=== PATIENT | female | born 1960 | race Caucasian/White ===

== ENCOUNTER 2016-08-22 11:39 | Emergency (ER) | payer BC ==
[2016-08-22] MEDS ORDERED: Sodium Chloride 0.9% 1,000 ML IV ONE (12:14)
[2016-08-22] MEDS ORDERED: Alum Hydrox/Mag Hydrox/Simeth 15 ML, Metoclopramide 5 MG, Lidocaine 2% 5 ML PO ONE ×3 (12:14)
[2016-08-22] MEDS ORDERED: Ketorolac 30 MG/ML SDV IVPUSH ONE (12:14)
--- NOTE | 2016-08-22 12:14 | EDM.PDOC ---
ED HPI GI/ABDOMINAL - General Chief Complaint: Abdominal Pain Stated Complaint: ABDOMINAL PAIN Time Seen by Provider: 08/22/16 11:55 Source of Information: Reports: Patient History Limitations: Reports: No limitations - History of Present Illness INITIAL COMMENTS - FREE TEXT/NARRATIVE: History of present illness: [55-year-old female presenting with complaints of diffuse abdominal and back pain. Patient indicates that she is having pain and pressure mostly in the upper epigastric region, as well as chronic flank pain indicating she knows she has a cyst on her kidney.] Review of systems: As per history of present illness and below otherwise all systems reviewed and negative. Past medical history: As per history of present illness and as reviewed below otherwise noncontributory. Surgical history: As per history of present illness and as reviewed below otherwise noncontributory. Social history: No reported history of drug or alcohol abuse. Family history: As per history of present illness and as reviewed below otherwise noncontributory. Physical exam: HEENT: Atraumatic, normocephalic, pupils reactive, negative for conjunctival pallor or scleral icterus, mucous membranes moist, throat clear, neck supple, nontender, trachea midline. Lungs: Clear to auscultation, breath sounds equal bilaterally, chest nontender. Heart: S1S2, regular, negative for clicks, rubs, or JVD. Abdomen: Soft, nondistended, small amount of epigastric tenderness noted on deep palpation. Negative for masses or hepatosplenomegaly. Negative for costovertebral tenderness. Pelvis: Stable nontender. Genitourinary: Deferred. Rectal: Deferred. Extremities: Atraumatic, negative for cords or calf pain. Neurovascular unremarkable. Neuro: Awake, alert, oriented. Cranial nerves II through XII unremarkable. Cerebellum unremarkable. Motor and sensory unremarkable throughout. Exam nonfocal. Diagnostics: [CBC, CMP] Therapeutics: [Excellent] Impression: [Abdominal pain, diverticulosis,] Plan: [follow up with MATH AND PHYSICS INSTRUCTOR] Definitive disposition and diagnosis as appropriate pending reevaluation and review of above. - Related Data Allergies/ADRs: Allergies Allergy/AdvReac Type Severity Reaction Status Date / Time acetaminophen [From Percocet] Allergy Mild Hives Verified 08/22/16 11:50 oxycodone HCl [From Percocet] Allergy Airway Verified 08/22/16 11:50 Tightness sulfur dioxide Allergy Rash Verified 08/22/16 11:50 Home Meds: Home Meds Budesonide/Formoterol Fumarate [Symbicort 80-4.5 Mcg Inhaler] 1 dose INH ASDIRECTED 06/11/14 [History] Albuterol [Ventolin HFA] 2 puff INH QID PRN 01/17/16 [History] Zolpidem Tartrate [Ambien] 5 mg PO DAILY 03/20/16 [History] Past Medical History - Past Health History Medical/Surgical History: Denies Medical/Surgical History HEENT History: Reports: None Cardiovascular History: Reports: None Respiratory History: Reports: COPD Gastrointestinal History: Reports: None Genitourinary History: Reports: Other (see below) Other Genitourinary History: recently told she has a cyst on her right kidney ( 3 cm). 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 Musculoskeletal History: Reports: Back pain, chronic, Fracture, Neck pain, chronic, Other (see below) Other Musculoskeletal History: right hip pain, hx of fx right wrist Neurological History: Reports: Other (see below) Other Neuro History: has ruptured disc in back Psychiatric History: Reports: None Endocrine/Metabolic History: Reports: Obesity/BMI 30+ Hematologic History: Reports: None Immunologic History: Reports: None Oncologic (Cancer) History: Reports: None Dermatologic History: Reports: None - Infectious Disease History Infectious Disease History: Reports: Chicken pox - Past Surgical History Head Surgeries/Procedures: Reports: None HEENT Surgical History: Reports: None Cardiovascular Surgical History: Reports: None Respiratory Surgical History: Reports: None GI Surgical History: Reports: None Female Surgical History: Reports: Tubal ligation Endocrine Surgical History: Reports: None Neurological Surgical History: Reports: None Musculoskeletal Surgical History: Reports: None Oncologic Surgical History: Reports: None Social & Family History - Family History Family Medical History: Noncontributory Cardiac: Reports: CAD Neurological: Reports: CVA - Tobacco Use Smoking Status *Q: Current Every Day Smoker Years of Tobacco use: 30 Packs/Tins Daily: 0.2 - Caffeine Use Caffeine Use: Reports: None - Alcohol Use Days Per Week of Alcohol Use: 0 Number of Drinks Per Day: 0 Total Drinks Per Week: 0 - Recreational Drug Use Recreational Drug Use: No Drug Use in Last 12 Months: No Recreational Drug Type: Reports: Marijuana/Hashish, Methamphetamine ED ROS GENERAL - Review of Systems Review Of Systems: See Below (See history of present illness) ED EXAM, GI/ABD - Physical Exam Exam: See Below (History of present illness) Course - Vital Signs Last Recorded V/S: Last Vital Signs Temp Pulse 69 08/22/16 13:26 Resp 16 08/22/16 13:26 BP 124/68 08/22/16 13:26 Pulse Ox 93 L 08/22/16 13:26 - Orders/Labs/Meds Orders: Active Orders 24 hr Category Date Time Status EKG Documentation Completion [RC] STAT Care 08/22/16 14:45 Active Labs: Laboratory Tests 08/22/16 08/22/16 08/22/16 Range/Units 12:10 12:10 14:55 WBC 9.28 (4.0-11.0) K/uL RBC 4.80 (4.30-5.90) M/uL Hgb 14.6 (12.0-16.0) g/dL Hct 45.6 (36.0-46.0) % MCV 95.0 (80.0-98.0) fL MCH 30.4 (27.0-32.0) pg MCHC 32.0 (31.0-37.0) g/dL RDW Std Deviation 48.1 (28.0-62.0) fl RDW Coeff of Murtaza 14 (11.0-15.0) % Plt Count 184 (150-400) K/uL MPV 10.00 (7.40-12.00) fL Neut % (Auto) 63.7 (48.0-80.0) % Lymph % (Auto) 23.3 (16.0-40.0) % Ogle % (Auto) 11.6 (0.0-15.0) % Eos % (Auto) 1.0 (0.0-7.0) % Baso % (Auto) 0.4 (0.0-1.5) % Neut # (Auto) 5.9 H (1.4-5.7) K/uL Lymph # (Auto) 2.2 (0.6-2.4) K/uL Ogle # (Auto) 1.1 H (0.0-0.8) K/uL Eos # (Auto) 0.1 (0.0-0.7) K/uL Baso # (Auto) 0.0 (0.0-0.1) K/uL Nucleated RBC % 0.0 /100WBC Nucleated RBCs # 0 K/uL Sodium 140 (136-146) mmol/L Potassium 4.5 (3.5-5.1) mmol/L Chloride 105 (98-110) mmol/L Carbon Dioxide 25 (21-31) mmol/L BUN 11 (6.0-23.0) mg/dL Creatinine 0.9 (0.6-1.5) mg/dL Est Cr Clr Drug Dosing 54.55 mL/min Estimated GFR (MDRD) > 60.0 ml/min Glucose 117 H (60-110) mg/dL Calcium 9.6 (8.8-10.8) mg/dL Total Bilirubin 0.5 (0.1-1.5) mg/dL AST 17 (5-40) IU/L ALT 24 (8-54) IU/L Alkaline Phosphatase 66 (40-150) Troponin I < 0.10 (0.0-0.29) NG/ML Total Protein 6.7 (6.0-8.0) g/dL Albumin 4.0 (3.5-5.0) g/dL Globulin 2.7 (2.0-3.5) g/dL Albumin/Globulin Ratio 1.5 (1.3-2.8) Amylase 39 (10-90) U/L Lipase 11 (7-80) U/L Meds: Medications Discontinued Medications Generic Name Dose Route Start Last Admin Trade Name Freq PRN Reason Stop Dose Admin Hydrocodone Bitart/Acetaminophen 1 tab 08/22/16 13:50 08/22/16 14:09 [place] 325-10 Mg PO 08/22/16 13:51 1 tab ONETIME ONE Administration Al Hydroxide/Mg Hydroxide 15 0 ml 08/22/16 12:14 08/22/16 12:38 ml/ Metoclopramide HCl 5 mg/ PO 08/22/16 12:15 1 each Lidocaine HCl 5 ml ONETIME ONE Administration Sodium Chloride 1,000 mls @ 999 mls/hr 08/22/16 12:14 08/22/16 12:39 Normal Saline IV 08/22/16 13:14 999 mls/hr STAT ONE Administration Iopamidol 100 ml 08/22/16 15:04 08/22/16 15:43 Isovue-370 (76%) IVPUSH 08/22/16 15:05 100 ml ONETIME STA Administration Ketorolac Tromethamine 30 mg 08/22/16 12:14 08/22/16 12:38 Toradol IVPUSH 08/22/16 12:15 30 mg ONETIME ONE Administration Pantoprazole Sodium 40 mg 08/22/16 14:59 08/22/16 16:01 Protonix Iv IVPUSH 08/22/16 15:00 40 mg .BOLUS ONE Administration Ranitidine HCl 300 mg 08/22/16 14:58 08/22/16 16:18 Zantac PO 08/22/16 14:59 300 mg ONETIME ONE Administration Departure - Departure Time of Disposition: 17:51 Disposition: Home, Self-Care 01 Condition: good Clinical Impression: Abdominal pain Qualifiers: Abdominal location: epigastric Qualified Code(s): R10.13 - Epigastric pain Diverticulosis Qualifiers: Diverticulosis site: unspecified location Instructions: Abdominal Pain, Adult, [id number] Forms: ED Department Discharge - My Orders Last 24 Hours: My Active Orders 08/22/16 14:45 EKG Documentation Completion [RC] STAT - Assessment/Plan Last 24 Hours: My Active Orders 08/22/16 14:45 EKG Documentation Completion [RC] STAT
[2016-08-22 12:49] LABS: CHLORIDE,CL 105 mmol/L (98-110); SODIUM,NA 140 mmol/L (136-146)
[2016-08-22] MEDS ORDERED: Acetaminophen/HYDROcodone 325-10 MG Tab PO ONE (13:50)
[2016-08-22] MEDS ORDERED: Ranitidine 15 MG/ML Syrup 10 ML UD Cup PO ONE (14:58)
[2016-08-22] MEDS ORDERED: Pantoprazole 40 MG Vial IVPUSH ONE (14:59)
[2016-08-22] MEDS ORDERED: Iopamidol 755 Mg/ML 100 ML Bottle IVPUSH STA (15:04)
--- NOTE | 2016-08-22 16:17 | CT ---
CT of the abdomen and pelvis with contrast. HISTORY: Pain TECHNIQUE: Axial CT images were obtained of the abdomen and pelvis following administration of 100 m L of Isovue-370 in the right antecubital fossa without complication. Coronal and sagittal reconstruc tions obtained. FINDINGS: The lung bases are clear, no pleural effusion. The liver, spleen, adrenal glands, and pancreas appear normal. The gallbladder appears normal. There is no bulky retroperitoneal lymphadenopathy or abdominal ascites. The kidneys enhance and function symmetrically without evidence of obstructive uropathy. There is a cyst within the midpole of the right kidney. The large and small bowel appear normal in caliber without evidence of obstruction. Sigmoid divertic ulosis is noted without evidence of diverticulitis. The appendix is normal. The urinary bladder appe ars normal. No pelvic lymphadenopathy or free pelvic fluid. No free air is noted. No suspicious osseous abnormalities demonstrated. IMPRESSION: 1. No acute findings demonstrated within the abdomen or pelvis. 2. Sigmoid diverticulosis without evidence of diverticulitis.
[2016-08-22 18:36] VITALS: BP 136/79
--- NOTE | 2016-08-23 10:35 | CR ---
EXAM DATE: 08/22/16 PATIENT'S AGE: 55 Patient: MIGUELINA DOLL Facility: [place], [place] Site . Site : 1960 Study: XRay Chest [id number]/4/2017 5:17:33 PM Ordering Physician: Doctor Chamberlain Final Report: INDICATION: Chest pain. Cough. TECHNIQUE: Chest 2 views. COMPARISON: 02/13/2016 FINDINGS: Cardiovascular and mediastinum: Heart size and vasculature are normal in caliber and appearance. Mediastinum is within normal limits. Lungs and pleural spaces: Hyperinflation again noted. No consolidation or pleural effusions. Bones and soft tissues: No significant change. IMPRESSION: No sign of acute disease. Hyperinflation compatible with COPD. Dictated by Andrea Solomon MD @ 08/22/2016 5:39:25 PM Dictated by: Andrea Solomon MD @ 08/22/2016 17:39:29 (Electronic Signature) Report Signed by Proxy and Original Signed Document filed in the Medical Record. MTDD
== END 2016-08-22 18:33 | disposition home or self-care (01) ==
LOC: MW.ED 11:39
DX: R10.13 Epigastric pain (principal); J44.9 Chronic obstructive pulmonary disease, unspecified; F17.210 Nicotine dependence, cigarettes, uncomplicated; E66.9 Obesity, unspecified; Z68.28 Body mass index [BMI] 28.0-28.9, adult; Z79.899 Other long term (current) drug therapy; Z88.5 Allergy status to narcotic agent; Z88.8 Allergy status to other drugs, medicaments and biological substances; Z98.51 Tubal ligation status
CPT/HCPCS: 36415; 71020; 74177; 80053; 81001; 82150; 83690; 84484; 85025; 93005; 96361; 96374; 99285; A9270; C9113; J1885; J7040; Q9967; 99284

== ENCOUNTER 2018-07-31 12:03 | Emergency (ER) | payer SELFPAY ==
--- NOTE | 2018-07-31 12:14 | EDM.PDOC ---
ED HPI GENERAL MEDICAL PROBLEM - General Chief Complaint: Upper Extremity Injury/Pain Stated Complaint: RIGHT SHOULDER PAIN Time Seen by Provider: 07/31/18 12:14 Source of Information: Reports: Patient History Limitations: Reports: No Limitations - History of Present Illness INITIAL COMMENTS - FREE TEXT/NARRATIVE: HISTORY AND PHYSICAL: History of present illness: Patient is a 57-year-old female here with complaint of right shoulder and wrist pain. She states she fell on this ice this morning while take trash out at work. She landed on her right side. Denies head injury or LOC. She does not pain of her right hip (points to her right low back). She did walk in to the ED unassisted with a normal gait. Review of systems: As per history of present illness and below otherwise all systems reviewed and negative. Past medical history: As per history of present illness and as reviewed below otherwise noncontributory. Surgical history: As per history of present illness and as reviewed below otherwise noncontributory. Social history: No reported history of drug or alcohol abuse. Family history: As per history of present illness and as reviewed below otherwise noncontributory. Physical exam: General: Patient sitting comfortably in no acute distress and nontoxic appearing HEENT: Atraumatic, normocephalic, pupils reactive, negative for conjunctival pallor or scleral icterus, mucous membranes moist, throat clear, neck supple, nontender, trachea midline. No meningeal signs. Lungs: Clear to auscultation, breath sounds equal bilaterally, chest nontender. Heart: S1S2, regular, negative for clicks, rubs, or overt murmur. Abdomen: Soft, nondistended, nontender. Negative for masses or hepatosplenomegaly. Negative for costovertebral tenderness. No rigidity, rebound , guarding. Pelvis: Stable nontender. Genitourinary: Deferred. Rectal: Deferred. Spine: No vertebral tenderness or step offs to palpation. No cervical paraspinal tenderness noted. No SI joint tenderness. Pain to palpation of right lumber paraspinals. Extremities: Pain to palpation of distal right radius and right shoulder AC joint. Full ROM of shoulder with pain noted with adduction. Full ROM of wrist and hand with pain noted of thumb adduction. There is no tenderness to palpation of the lateral right hip and she has full ROM. CMS intact distally. Atraumatic, negative for cords or calf pain. Neurovascular unremarkable. Neuro: Awake, alert, oriented. Cranial nerves II through XII unremarkable. Cerebellum unremarkable. Motor and sensory unremarkable throughout. Exam nonfocal. Notes: Diagnostics: Toradol 60mg IM x-ray right shoulder, x-ray right wrist Therapeutics: Sling, velcro wrist splint Prescriptions: None Impression: Fall, right wrist injury, right shoulder pain Plan: 1. Alternate motrin or tylenol as instructed. Ice and elevated as discussed 2. Follow up with primary care provider 3. Return to ED as needed as discussed Definitive disposition and diagnosis as appropriate pending reevaluation and review of above. Right Wrist Pain Score (Numeric/FACES): 7 - Related Data Allergies Allergy/AdvReac Type Severity Reaction Status Date / Time acetaminophen [From Percocet] Allergy Mild Hives Verified 07/31/18 12:06 oxycodone HCl [From Percocet] Allergy Airway Verified 07/31/18 12:06 Tightness sulfur dioxide Allergy Rash Verified 07/31/18 12:06 Home Meds: Home Meds . [No Known Home Meds] 07/31/18 [History] Past Medical History - Past Health History Medical/Surgical History: Denies Medical/Surgical History HEENT History: Reports: None Cardiovascular History: Reports: None Respiratory History: Reports: COPD Gastrointestinal History: Reports: None Genitourinary History: Reports: Other (See Below) Other Genitourinary History: recently told she has a cyst on her right kidney ( 3 cm). 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 Musculoskeletal History: Reports: Back Pain, Chronic, Fracture, Neck Pain, Chronic, Other (See Below) Other Musculoskeletal History: right hip pain, hx of fx right wrist Neurological History: Reports: Other (See Below) Other Neuro History: has ruptured disc in back Psychiatric History: Reports: None Endocrine/Metabolic History: Reports: Obesity/BMI 30+ Hematologic History: Reports: None Immunologic History: Reports: None Oncologic (Cancer) History: Reports: None Dermatologic History: Reports: None - Infectious Disease History Infectious Disease History: Reports: Chicken Pox - Past Surgical History Female Surgical History: Reports: Tubal Ligation Social & Family History - Family History Family Medical History: Noncontributory Cardiac: Reports: CAD Neurological: Reports: CVA - Caffeine Use Caffeine Use: Reports: None Review of Systems - Review of Systems Review Of Systems: ROS reveals no pertinent complaints other than HPI. ED EXAM, GENERAL - Physical Exam Exam: See Below (See dictation) Course - Vital Signs Last Recorded V/S: Last Vital Signs Temp 98.5 F 07/31/18 12:07 Pulse 69 07/31/18 12:07 Resp 18 07/31/18 12:07 BP 144/69 H 07/31/18 12:07 Pulse Ox 95 07/31/18 12:07 - Orders/Labs/Meds Orders: Active Orders 24 hr Category Date Time Status Shoulder Comp Rt [CR] Stat Exams 07/31/18 12:13 Taken Wrist Comp Min 3V Rt [CR] Stat Exams 07/31/18 12:14 Taken Departure - Departure Time of Disposition: 14:22 Disposition: Home, Self-Care 01 Condition: Good Clinical Impression: Fall, Right wrist injury, Right shoulder injury - Discharge Information Forms: ED Department Discharge Additional Instructions: The following information is given to patients seen in the emergency department who are being discharged to home. This information is to outline your options for follow-up care. We provide all patients seen in our emergency department with a follow-up referral. The need for follow-up, as well as the timing and circumstances, are variable depending upon the specifics of your emergency department visit. If you don't have a primary care physician on staff, we will provide you with a referral. We always advise you to contact your personal physician following an emergency department visit to inform them of the circumstance of the visit and for follow-up with them and/or the need for any referrals to a consulting specialist. The emergency department will also refer you to a specialist when appropriate. This referral assures that you have the opportunity for follow-up care with a specialist. All of these measure are taken in an effort to provide you with optimal care, which includes your follow-up. Under all circumstances we always encourage you to contact your private physician who remains a resource for coordinating your care. When calling for follow-up care, please make the office aware that this follow-up is from your recent emergency room visit. If for any reason you are refused follow-up, please contact the [facility] Emergency Department at and asked to speak to the emergency department charge nurse. [facility] Primary Care [address] [place] [address] [place] [id number] [facility] [address] [place] [address] 1. Alternate motrin or tylenol as instructed. Ice and elevated as discussed 2. Follow up with primary care provider 3. Return to ED as needed as discussed - My Orders Last 24 Hours: My Active Orders 07/31/18 12:13 Shoulder Comp Rt [CR] Stat 07/31/18 12:14 Wrist Comp Min 3V Rt [CR] Stat - Assessment/Plan Last 24 Hours: My Active Orders 07/31/18 12:13 Shoulder Comp Rt [CR] Stat 07/31/18 12:14 Wrist Comp Min 3V Rt [CR] Stat
[2018-07-31] MEDS: Ketorolac 60 MG/2 ML SDV IM ONE (14:37)
[2018-07-31 14:41] VITALS: BP 125/93
--- NOTE | 2018-08-01 11:32 | CR ---
EXAM DATE: 07/31/18 PATIENT'S AGE: 57 Patient: MIGUELINA DOLL Facility: [facility] Site . Site : 1960 Study: XRay-Extremity Right WRIST [id number]/13/2019 12:44:29 PM Ordering Physician: Doctor Chamberlain Final Report: INDICATION: PAIN, FALL RIGHT WRIST No fracture, dislocation, or destructive lesion of bone is seen. No significant arthritic changes or soft tissue abnormalities are identified. IMPRESSION: Negative right wrist radiographs. SHANITA DAVENPORT MD [employer] Dictated by: Soham Davenport MD @ 07/31/2018 12:46:44 Signed by: Soham Davenport MD @07/31/2018 12:46:44 PM (Electronic Signature) Report Signed by Proxy. [facility]
--- NOTE | 2018-08-01 11:33 | CR ---
EXAM DATE: 07/31/18 PATIENT'S AGE: 57 Patient: MIGUELINA DOLL Facility: [facility] Site . Site : 1960 Study: XRay-Shoulder Right [id number]/13/2019 12:43:58 PM Ordering Physician: Doctor Chamberlain Final Report: INDICATION: PAIN, FALL RIGHT SHOULDER No fracture, dislocation, or destructive lesion of bone is seen. No significant arthritic changes or soft tissue abnormalities are identified. IMPRESSION: Negative right shoulder radiographs. SHANITA DAVENPORT MD [employer] Dictated by: Soham Davenport MD @ 07/31/2018 12:48:05 Signed by: Soham Davenport MD @07/31/2018 12:48:05 PM (Electronic Signature) Report Signed by Proxy. [facility]
== END 2018-07-31 14:35 | disposition home or self-care (01) ==
LOC: MW.ED 12:03
DX: S69.91XA Unspecified injury of right wrist, hand and finger(s), initial encounter (principal); S49.91XA Unspecified injury of right shoulder and upper arm, initial encounter; Z88.8 Allergy status to other drugs, medicaments and biological substances; E66.9 Obesity, unspecified; W00.9XXA Unspecified fall due to ice and snow, initial encounter
CPT/HCPCS: 73030-26-RT; 73030-RT; 73110-26-RT; 73110-RT; 99283-25

== ENCOUNTER 2019-10-25 10:31 | Emergency (ER) | payer SELFPAY ==
--- NOTE | 2019-10-25 10:40 | EDM.PDOC ---
ED HPI GENERAL MEDICAL PROBLEM - General Chief Complaint: ENT Problem Stated Complaint: RAW THROAT Time Seen by Provider: 10/25/19 10:35 Source of Information: Reports: Patient History Limitations: Reports: No Limitations - History of Present Illness INITIAL COMMENTS - FREE TEXT/NARRATIVE: HISTORY AND PHYSICAL: History of present illness: Patient is a 58-year-old female who presents to the emergency room with complaints of sore throat. Patient does have a history of COPD and does have a chronic cough although feels the cough has worsened and also caused increased pain on her throat. She has the sensation of her throat feeling "raw" and has not found any relief with Tylenol or ibuprofen. Subjective fevers over the past 1 to 2 days although is currently afebrile without any antipyretics on board. She did have one episode of emesis after she "coughed so hard" but she could not keep food down. Otherwise she is not nauseated nor had any other episodes of vomiting. Review of systems: As per history of present illness and below otherwise all systems reviewed and negative. Past medical history: As per history of present illness and as reviewed below otherwise noncontributory. Surgical history: As per history of present illness and as reviewed below otherwise noncontributory. Social history: See social history for further information Family history: As per history of present illness and as reviewed below otherwise noncontributory. Physical exam: General: Well-developed and well-nourished 58-year-old female. Alert and oriented. Nontoxic-appearing and in no acute distress. HEENT: Atraumatic, normocephalic, pupils equal and reactive bilaterally, negative for conjunctival pallor or scleral icterus, mucous membranes moist, TMs normal bilaterally, throat erythematous without exudate, neck supple, nontender, trachea midline. No drooling or trismus noted. No meningeal signs. No hot potato voice noted. Lungs: Slightly diminished in the bases bilaterally with notable poor air exchange, breath sounds equal bilaterally, chest nontender. No work of breathing, breathes easy and even. Known COPD Heart: S1S2, regular rate and rhythm without overt murmur Abdomen: Soft, nondistended, nontender. Skin: Intact, warm, dry. No lesions or rashes noted. Extremities: Atraumatic, moves all extremities per self without difficulty or deficits. Neurovascular unremarkable. Neuro: Awake, alert, oriented. Cranial nerves II through XII unremarkable. Cerebellum unremarkable. Motor and sensory unremarkable throughout. Exam nonfocal. Notes: Patient does not have a history of GERD but after talking to her I do feel there is a component of GERD associated with the "raw sensation" she is experiencing in her esophagus and throat. She did have great relief with the viscous lidocaine. We discussed signs and symptoms that would prompt her to return to the emergency room. Also encouraged her to follow-up in the next week. She is nontoxic in appearance and suitable for discharge to home without further diagnostics. Supportive care measures were reviewed and discussed. Voices understanding and is agreeable to plan of care. Denies any further questions or concerns at this time. Diagnostics: CXR Therapeutics: Viscous Lidocaine Prescription: Miracle mouthwash, Esomeprazole, Augmentin Impression: GERD Pharyngitis Plan: 1. Take your medication as directed. I feel there is a GERD (gastric reflux) component to your throat pain; limited about of PPI given for you to take 1 hour before meals - give this a 2 week trial. If you find relief with this, may want to follow up with your primary care provider or General Surgeon for re- evaluation and further care of this. 2. Miracle Mouthwash gargles (rinse and spit) 3-4 x daily. Please get a new tooth brush after completion of your medication 3. Tylenol and or ibuprofen as needed for pain management. 4. Return to the ED as needed and as discussed. Definitive disposition and diagnosis as appropriate pending reevaluation and review of above. Throat Pain Score (Numeric/FACES): 10 - Related Data Allergies Allergy/AdvReac Type Severity Reaction Status Date / Time acetaminophen [From Percocet] Allergy Mild Hives Verified 10/25/19 10:51 oxycodone HCl [From Percocet] Allergy Airway Verified 10/25/19 10:51 Tightness sulfur dioxide Allergy Rash Verified 10/25/19 10:51 Home Meds: Home Meds Albuterol [Proventil Neb Soln] 0.63 mg NEB Q6H 10/25/19 [History] Albuterol [Ventolin HFA] 1 puff INH Q6H 10/25/19 [History] Budesonide/Formoterol Fumarate [Symbicort 160-4.5 Mcg Inhaler] 1 mg INH DAILY [History] Past Medical History - Past Health History Medical/Surgical History: Denies Medical/Surgical History HEENT History: Reports: None Cardiovascular History: Reports: None Respiratory History: Reports: COPD Gastrointestinal History: Reports: None Genitourinary History: Reports: Other (See Below) Other Genitourinary History: recently told she has a cyst on her right kidney ( 3 cm). 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 Musculoskeletal History: Reports: Back Pain, Chronic, Fracture, Neck Pain, Chronic, Other (See Below) Other Musculoskeletal History: right hip pain, hx of fx right wrist Neurological History: Reports: Other (See Below) Other Neuro History: has ruptured disc in back Psychiatric History: Reports: None Endocrine/Metabolic History: Reports: Obesity/BMI 30+ Hematologic History: Reports: None Immunologic History: Reports: None Oncologic (Cancer) History: Reports: None Dermatologic History: Reports: None - Infectious Disease History Infectious Disease History: Reports: Chicken Pox - Past Surgical History Head Surgeries/Procedures: Reports: None Female Surgical History: Reports: Tubal Ligation Social & Family History - Family History Family Medical History: Noncontributory Cardiac: Reports: CAD Neurological: Reports: CVA - Caffeine Use Caffeine Use: Reports: None ED ROS ENT - Review of Systems Review Of Systems: Comprehensive ROS is negative, except as noted in HPI. ED EXAM, ENT - Physical Exam Exam: See Below (See dictation) Course - Vital Signs Last Recorded V/S: Last Vital Signs Temp 98.3 F 10/25/19 10:45 Pulse 92 10/25/19 10:45 Resp 20 10/25/19 10:45 BP 101/73 10/25/19 10:45 Pulse Ox 93 L 10/25/19 10:45 - Orders/Labs/Meds Meds: Medications Discontinued Medications Generic Name Dose Route Start Last Admin Trade Name Freq PRN Reason Stop Dose Admin Lidocaine HCl 15 ml 10/25/19 10:54 10/25/19 11:03 Xylocaine 2% Viscous PO 10/25/19 10:55 15 ml ONETIME ONE Administration Departure - Departure Time of Disposition: 11:32 Disposition: Home, Self-Care 01 Clinical Impression: Pharyngitis Qualifiers: Pharyngitis/tonsillitis etiology: unspecified etiology Qualified Code(s): J02.9 - Acute pharyngitis, unspecified GERD (gastroesophageal reflux disease) Qualifiers: Esophagitis presence: without esophagitis Qualified Code(s): K21.9 - Gastro- esophageal reflux disease without esophagitis - Discharge Information Instructions: Pharyngitis Referrals: Jen Ryan NP [Primary Care Provider] - Forms: ED Department Discharge Additional Instructions: The following information is given to patients seen in the emergency department who are being discharged to home. This information is to outline your options for follow-up care. We provide all patients seen in our emergency department with a follow-up referral. The need for follow-up, as well as the timing and circumstances, are variable depending upon the specifics of your emergency department visit. If you don't have a primary care physician on staff, we will provide you with a referral. We always advise you to contact your personal physician following an emergency department visit to inform them of the circumstance of the visit and for follow-up with them and/or the need for any referrals to a consulting specialist. The emergency department will also refer you to a specialist when appropriate. This referral assures that you have the opportunity for follow-up care with a specialist. All of these measure are taken in an effort to provide you with optimal care, which includes your follow-up. Under all circumstances we always encourage you to contact your private physician who remains a resource for coordinating your care. When calling for follow-up care, please make the office aware that this follow-up is from your recent emergency room visit. If for any reason you are refused follow-up, please contact the [facility] Emergency Department at and asked to speak to the emergency department charge nurse. [facility] Primary Care [address] [place] [address] [id number] [address] [address] 1. Take your medication as directed. I feel there is a GERD (gastric reflux) component to your throat pain; limited about of PPI given for you to take 1 hour before meals - give this a 2 week trial. If you find relief with this, may want to follow up with your primary care provider or General Surgeon for re- evaluation and further care of this. 2. Miracle Mouthwash gargles (rinse and spit) 3-4 x daily. Please get a new tooth brush after completion of your medication 3. Tylenol and or ibuprofen as needed for pain management. 4. Return to the ED as needed and as discussed. Sepsis Event Note - Focused Exam Vital Signs: Vital Signs Temp Pulse Resp BP Pulse Ox 10/25/19 10:45 98.3 F 92 20 101/73 93 L Date Exam was Performed: 10/25/19 Time Exam was Performed: 11:36
[2019-10-25] MEDS ORDERED: Lidocaine 2% Viscous Solution 15 ML Cup PO ONE (10:54)
--- NOTE | 2019-10-25 11:35 | CR ---
Chest: 2 views of the chest were obtained. Comparison: Prior chest x-ray of 08/22/16. Heart size and mediastinum are normal. Lungs are hyperinflated compatible with emphysematous change. No acute osseous finding is appreciated. Impression: 1. Emphysematous change. 2. Nothing acute is appreciated. Diagnostic code #2 This report was dictated in MDT
[2019-10-25 11:46] VITALS: BP 128/78; PULSE 90
== END 2019-10-25 11:43 | disposition home or self-care (01) ==
LOC: MW.ED 10:31
DX: J02.9 Acute pharyngitis, unspecified (principal); K21.9 Gastro-esophageal reflux disease without esophagitis; J44.9 Chronic obstructive pulmonary disease, unspecified; E66.9 Obesity, unspecified; Z68.25 Body mass index [BMI] 25.0-25.9, adult; Z88.5 Allergy status to narcotic agent; Z88.6 Allergy status to analgesic agent; Z79.899 Other long term (current) drug therapy; Z88.2 Allergy status to sulfonamides
CPT/HCPCS: 71046; 99283; A9270

== ENCOUNTER 2020-08-10 09:52 | Emergency (ER) | payer SELFPAY ==
--- NOTE | 2020-08-10 10:01 | EDM.PDOC ---
ED HPI GENERAL MEDICAL PROBLEM - General Chief Complaint: Genitourinary Problem Stated Complaint: BLOOD IN URINE Time Seen by Provider: 08/10/20 09:59 Source of Information: Reports: Patient History Limitations: Reports: No Limitations - History of Present Illness INITIAL COMMENTS - FREE TEXT/NARRATIVE: HISTORY AND PHYSICAL: History of present illness: Patient is a 59-year-old female who presents emergency room today with concern of blood in her urine that started yesterday. Patient states other than looking at her urine, she would not know that there is blood in it as she does not have any associative symptoms. Patient denies any passing of clots and states that it has only been slightly pink her urine without dark red blood. patient states she has a history of COPD and a prior cyst on her kidney otherwise denies any health history. Patient denies fever, chills, chest pain, shortness of breath, or cough. Denies headache, neck stiff ness, change in vision, syncope, or near syncope. Denies nausea, vomiting, abdominal pain, diarrhea, constipation, or dysuria. Has not noted any blood in stool. Patient has been eating and drinking appropriately. Review of systems: As per history of present illness and below otherwise all systems reviewed and negative. Past medical history: As per history of present illness and as reviewed below otherwise noncontributory. Surgical history: As per history of present illness and as reviewed below otherwise noncontributory. Social history: See social history for further information Family history: As per history of present illness and as reviewed below otherwise noncontributory. Physical exam: General: Patient is alert, oriented, and in no acute distress. Patient sitting comfortably on exam table. Vitals stable and reviewed by me. HEENT: Atraumatic, normocephalic, pupils equal and reactive bilaterally, negative for conjunctival pallor or scleral icterus, mucous membranes moist, TMs normal bilaterally, throat clear, neck supple, nontender, trachea midline. No drooling or trismus noted. No meningeal signs. No hot potato voice noted. Lungs: Clear to auscultation, breath sounds equal bilaterally, chest nontender. Heart: S1S2, regular rate and rhythm without overt murmur Abdomen: Soft, nondistended, nontender. Negative for masses or hepatosplenomegaly. Negative for costovertebral tenderness. Pelvis: Stable nontender. Genitourinary: Deferred. Rectal: Deferred. Skin: Intact, warm, dry. No lesions or rashes noted. Extremities: Atraumatic, negative for cords or calf pain. Neurovascular unremarkable. Neuro: Awake, alert, oriented. Cranial nerves II through XII unremarkable. Cerebellum unremarkable. Motor and sensory unremarkable throughout. Exam nonfocal. Notes: On initial exam, patient is well-appearing without any abdominal pain or CVA tenderness. She is complaining of blood in your urine, will perform routine lab work to evaluate for renal function and blood counts. Will also get a urinalysis. CBC shows that hemoglobin is stable at 16.3 and hematocrit 49.5. CBC is otherwise unremarkable. CMP is unremarkable noting that BUN of 16 and creatinine of 0.9. UA shows too numerous to count red blood cells and 0-2 white blood cells with positive leukocyte esterase and nitrite. Will culture urine Urinalysis does show possible early urinary tract infection, will treat with Keflex at this time. Thoroughly discussed with patient, that if her symptoms do not resolve, that she needs to follow-up with her primary care provider or the urologist after completion of antibiotics. Strict return precautions thoroughly discussed with patient. I wish to patient, she remains vitally stable and comfortable throughout stay in ED. She does not complain of any associated pain with her symptoms. Voices understanding and is agreeable to plan of care. Denies any further questions or concerns at this time. Diagnostics: UA w culture, CBC, CMP Therapeutics: None Prescription: Keflex Impression: Urinary tract infection Hematuria Plan: 1. Take medication as prescribed. Monitor for signs of improving vs worsening symptoms as discussed. 2. Follow-up with your primary care provider / urologist as discussed. Return to the ED as needed and as discussed. Definitive disposition and diagnosis as appropriate pending reevaluation and review of above. R flank Pain Score (Numeric/FACES): 7 - Related Data Allergies Allergy/AdvReac Type Severity Reaction Status Date / Time acetaminophen [From Percocet] Allergy Mild Hives Verified 08/10/20 10:07 oxycodone HCl [From Percocet] Allergy Airway Verified 08/10/20 10:07 Tightness sulfur dioxide Allergy Rash Verified 08/10/20 10:07 Home Meds: Home Meds Albuterol [Proventil Neb Soln] 0.63 mg NEB Q6H PRN 10/25/19 [History] Albuterol [Ventolin HFA] 1 puff INH Q6H PRN 10/25/19 [History] Budesonide/Formoterol Fumarate [Symbicort 160-4.5 Mcg Inhaler] 2 puff INH DAILY 10/25/19 [History] Tiotropium [place] [Spiriva Respimat] 1 puff INH DAILY 08/10/20 [History] cephALEXin [Keflex] 500 mg PO BID 7 Days #14 cap 08/10/20 [Rx] Past Medical History - Past Health History Medical/Surgical History: Denies Medical/Surgical History HEENT History: Reports: None Cardiovascular History: Reports: None Respiratory History: Reports: COPD Gastrointestinal History: Reports: None Genitourinary History: Reports: Other (See Below) Other Genitourinary History: recently told she has a cyst on her right kidney (3 cm). 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 Musculoskeletal History: Reports: Back Pain, Chronic, Fracture, Neck Pain, Chronic, Other (See Below) Other Musculoskeletal History: right hip pain, hx of fx right wrist Neurological History: Reports: Other (See Below) Other Neuro History: has ruptured disc in back Psychiatric History: Reports: None Endocrine/Metabolic History: Reports: Obesity/BMI 30+ Hematologic History: Reports: None Immunologic History: Reports: None Oncologic (Cancer) History: Reports: None Dermatologic History: Reports: None - Infectious Disease History Infectious Disease History: Reports: Chicken Pox - Past Surgical History Head Surgeries/Procedures: Reports: None Female Surgical History: Reports: Tubal Ligation Social & Family History - Family History Family Medical History: No Pertinent Family History Cardiac: Reports: CAD Neurological: Reports: CVA - Caffeine Use Caffeine Use: Reports: None ED ROS GENERAL - Review of Systems Review Of Systems: Comprehensive ROS is negative, except as noted in HPI. ED EXAM, GENERAL - Physical Exam Exam: See Below (see dictation) Course - Vital Signs Last Recorded V/S: Last Vital Signs Temp 96.5 F L 08/10/20 09:53 Pulse 78 08/10/20 11:00 Resp 17 08/10/20 11:00 BP 129/68 08/10/20 11:00 Pulse Ox 93 L 08/10/20 11:00 - Orders/Labs/Meds Orders: Active Orders 24 hr Category Date Time Status CULTURE URINE [RM] Stat Lab 08/10/20 10:05 Received Labs: Laboratory Tests 08/10/20 08/10/20 08/10/20 Range/Units 10:05 10:50 10:50 WBC 8.06 (4.0-11.0) K/uL RBC 5.08 (4.30-5.90) M/uL Hgb 16.3 H (12.0-16.0) g/dL Hct 49.5 H (36.0-46.0) % MCV 97.4 (80.0-98.0) fL MCH 32.1 H (27.0-32.0) pg MCHC 32.9 (31.0-37.0) g/dL RDW Std Deviation 46.5 (28.0-62.0) fl RDW Coeff of Murtaza 13 (11.0-15.0) % Plt Count 249 (150-400) K/uL MPV 9.90 (7.40-12.00) fL Neut % (Auto) 69.0 (48.0-80.0) % Lymph % (Auto) 19.4 (16.0-40.0) % Saunders % (Auto) 9.9 (0.0-15.0) % Eos % (Auto) 1.2 (0.0-7.0) % Baso % (Auto) 0.5 (0.0-1.5) % Neut # (Auto) 5.6 (1.4-5.7) K/uL Lymph # (Auto) 1.6 (0.6-2.4) K/uL Saunders # (Auto) 0.8 (0.0-0.8) K/uL Eos # (Auto) 0.1 (0.0-0.7) K/uL Baso # (Auto) 0.0 (0.0-0.1) K/uL Nucleated RBC % 0.0 /100WBC Nucleated RBCs # 0 K/uL Sodium 139 (136-145) mmol/L Potassium 4.4 (3.5-5.1) mmol/L Chloride 102 (98-107) mmol/L Carbon Dioxide 27.6 (21.0-32.0) mmol/L BUN 16 (7.0-18.0) mg/dL Creatinine 0.9 (0.6-1.0) mg/dL Est Cr Clr Drug Dosing 51.92 mL/min Estimated GFR (MDRD) > 60.0 ml/min Glucose 88 (74-106) mg/dL Calcium 9.3 (8.5-10.1) mg/dL Total Bilirubin 0.3 (0.2-1.0) mg/dL AST 25 (15-37) IU/L ALT 29 (14-63) IU/L Alkaline Phosphatase 87 (46-116) U/L Total Protein 7.8 (6.4-8.2) g/dL Albumin 3.9 (3.4-5.0) g/dL Globulin 3.9 (2.6-4.0) g/dL Albumin/Globulin Ratio 1.0 (0.9-1.6) Urine Color YELLOW Urine Appearance CLOUDY Urine pH 7.0 (5.0-8.0) Ur Specific [place] 1.025 (1.001-1.035) Urine Protein 30 H (NEGATIVE) mg/dL Urine Glucose (UA) NEGATIVE (NEGATIVE) mg/dL Urine Ketones TRACE H (NEGATIVE) mg/dL Urine Occult Blood LARGE H (NEGATIVE) Urine Nitrite POSITIVE H (NEGATIVE) Urine Bilirubin SMALL H (NEGATIVE) Urine Ictotest NEGATIVE Urine Urobilinogen 1.0 (<2.0) EU/dL Ur Leukocyte Esterase TRACE H (NEGATIVE) Urine RBC TOO NUMEROUS TO CT H (0-2/HPF) Urine WBC 0-2 (0-5/HPF) Ur Epithelial Cells FEW (NONE-FEW) Urine Bacteria FEW (NEGATIVE) Departure - Departure Time of Disposition: 11:35 Disposition: Home, Self-Care 01 Clinical Impression: Urinary tract infection Qualifiers: Urinary tract infection type: acute cystitis Hematuria presence: with hematuria Qualified Code(s): N30.01 - Acute cystitis with hematuria Hematuria Qualifiers: Hematuria type: unspecified type Qualified Code(s): R31.9 - Hematuria, unspecified - Discharge Information Prescriptions: cephALEXin [Keflex] 500 mg PO BID 7 Days #14 cap Referrals: Jen Ryan [employer]TELLIGENCE DEVELOPER [Primary Care Provider] - Forms: ED Department Discharge Additional Instructions: The following information is given to patients seen in the emergency department who are being discharged to home. This information is to outline your options for follow-up care. We provide all patients seen in our emergency department with a follow-up referral. The need for follow-up, as well as the timing and circumstances, are variable depending upon the specifics of your emergency department visit. If you don't have a primary care physician on staff, we will provide you with a referral. We always advise you to contact your personal physician following an emergency department visit to inform them of the circumstance of the visit and for follow-up with them and/or the need for any referrals to a consulting specialist. The emergency department will also refer you to a specialist when appropriate. This referral assures that you have the opportunity for follow-up care with a specialist. All of these measure are taken in an effort to provide you with optimal care, which includes your follow-up. Under all circumstances we always encourage you to contact your private physician who remains a resource for coordinating your care. When calling for follow-up care, please make the office aware that this follow-up is from your recent emergency room visit. If for any reason you are refused follow-up, please contact the [facility] Emergency Department at and asked to speak to the emergency department charge nurse. [facility] Primary Care [address] [place] [address] [place] [address] [facility] - Urology [address] [place] [address] 1. Take medication as prescribed. Monitor for signs of improving vs worsening symptoms as discussed. 2. Follow-up with your primary care provider / urologist as discussed. Return to the ED as needed and as discussed. Sepsis Event Note (ED) - Focused Exam Vital Signs: Vital Signs Temp Pulse Resp BP Pulse Ox 08/10/20 11:00 78 17 129/68 93 L 08/10/20 09:53 96.5 F L 87 18 135/69 94 L - My Orders Last 24 Hours: My Active Orders 08/10/20 10:05 CULTURE URINE [RM] Stat - Assessment/Plan Last 24 Hours: My Active Orders 08/10/20 10:05 CULTURE URINE [RM] Stat
[2020-08-10 11:32] LABS: BLOOD UREA NITROGEN,BUN 16 mg/dL (7.0-18.0); CARBON DIOXIDE,CO2 27.6 mmol/L (21.0-32.0); CHLORIDE,CL 102 mmol/L (98-107); GLUCOSE RANDOM 88 mg/dL (74-106); POTASSIUM,K 4.4 mmol/L (3.5-5.1); SODIUM,NA 139 mmol/L (136-145)
[2020-08-10 11:55] VITALS: BP 121/71; PULSE 73
== END 2020-08-10 11:48 | disposition home or self-care (01) ==
LOC: MW.ED 09:52
DX: N30.01 Acute cystitis with hematuria (principal); J44.9 Chronic obstructive pulmonary disease, unspecified; E66.9 Obesity, unspecified; Z68.25 Body mass index [BMI] 25.0-25.9, adult; Z88.2 Allergy status to sulfonamides; Z88.8 Allergy status to other drugs, medicaments and biological substances; Z79.899 Other long term (current) drug therapy
CPT/HCPCS: 36415; 80053; 81001; 85025; 87086; 99283

== ENCOUNTER 2020-09-06 22:44 | Emergency (ER) | payer SELFPAY ==
[2020-09-06] MEDS ORDERED: Sodium Chloride 0.9% 1,000 ML IV ONE (23:13)
[2020-09-06] MEDS ORDERED: Sodium Chloride 0.9% 2.5 ML Syringe FLUSH PRN (23:13)
[2020-09-06] MEDS ORDERED: Ketorolac 15 MG/ML SDV IVPUSH ONE (23:13)
[2020-09-06] MEDS ORDERED: Ondansetron 4 MG/2 ML SDV IVPUSH ONE (23:13)
[2020-09-06] MEDS ORDERED: Sodium Chloride 0.9% 10 ML Syringe FLUSH PRN (23:13)
[2020-09-07 00:03] LABS: CARBON DIOXIDE,CO2 28.6 mmol/L (21.0-32.0); POTASSIUM,K 4.3 mmol/L (3.5-5.1)
--- NOTE | 2020-09-07 00:18 | CT ---
Indication: Left flank pain, history of renal cyst Technique: Nonenhanced axial CT imaging through the abdomen and pelvis. Sagittal and coronal reconstructions are provided. Comparison: None Findings: There is normal renal parenchymal attenuation without hydronephrosis. No stones are seen in the renal collecting systems, ureters, or urinary bladder. A 4 cm cortical cyst is noted arising from the medial right kidney. There is unremarkable noncontrast appearance of the liver, gallbladder, spleen, pancreas, and adrenal glands. There is no abdominal lymphadenopathy. There is normal caliber of the abdominal aorta. The stomach and duodenum are unremarkable. There are no abnormally dilated small bowel loops. The appendix is noninflamed. There is extensive diverticulosis of the sigmoid colon. Mild circumferential thickening is suggested in distal sigmoid colon, surrounding edema. The urinary bladder, uterus, and adnexa are unremarkable. There is no pelvic free fluid or lymphadenopathy. The osseous structures are unremarkable. Mild linear atelectasis and/or scarring is noted in the right lung base Impression: 1. No nephrolithiasis or urinary obstruction. Incidental 4 cm right renal cortical cyst. 2. Diverticulosis of the sigmoid colon. Suggestion of mild circumferential wall thickening distally, without appreciable surrounding edema. Mild/early presentation of acute diverticulitis is not entirely excluded. Correlate clinically. 3. Otherwise no acute abnormality demonstrated. Please note that all CT scans at this facility use dose modulation, iterative reconstruction, and/or weight-based dosing when appropriate to reduce radiation dose to as low as reasonably achievable. Dictated by Prashant Montes MD @ Sep 07 2020 12:05AM Signed by Dr. Prashant Montes @ Sep 07 2020 12:16AM
--- NOTE | 2020-09-07 00:57 | EDM.PDOC ---
ED HPI GENERAL MEDICAL PROBLEM - General Chief Complaint: Abdominal Pain Stated Complaint: KIDNEY PAIN Time Seen by Provider: 09/06/20 23:02 - History of Present Illness INITIAL COMMENTS - FREE TEXT/NARRATIVE: HISTORY AND PHYSICAL: History of present illness: This is a 59-year-old female who presents ER today complaining of left flank and left lower quadrant abdominal pain. Patient reports that approximately 2 to 3 weeks ago she was diagnosed with a urinary tract infection and completed her full course of antibiotics. Patient reports for short amount time she was feeling better however over the last several days she is started developing worsening pain to her left flank and left lower abdomen. Patient denies any recent fevers, shakes, chills. Patient reports nausea with no vomiting or diarrhea. Patient denies any dysuria, frequency, urgency. Patient reports symptoms today are different than her prior symptoms with a UTI. Patient denies any history of diverticulitis in the past. Patient reports she has a history of a large left renal cyst that has been there for quite some time. Patient denies any melena or bright red blood per rectum. Patient reports normal p.o. intake. Patient reports earlier today she had cereal with milk and started having some midepigastric abdominal cramping. Review of systems: As per history of present illness and below otherwise all systems reviewed and negative. Past medical history: As per history of present illness and as reviewed below otherwise noncontributory. Surgical history: As per history of present illness and as reviewed below otherwise noncontributo ry. Social history: No reported history of drug or alcohol abuse. Family history: As per history of present illness and as reviewed below otherwise noncontributory. Physical exam: This patient was seen and evaluated during the 2019 SARS-CoV-2 novel coronavirus pandemic period. Community viral transmission is ongoing at time of this encounter and the emergency department is operating under pandemic response procedures. Constitutional: Patient is oriented to person, place, and time. Appears well- developed and well-nourished. No distress. HEENT: Moist mucous membranes Head: Normocephalic and atraumatic Eyes: Right eye exhibits no discharge. Left eye exhibits no discharge. No scleral icterus Neck: Normal range of motion. No tracheal deviation present. Cardiovascular: Normal rate and regular rhythm. Pulmonary: Effort normal, no respiratory distress. Abd: Soft, nondistended, no rebound/guarding, no psoas or obturator signs, no tenderness at Mcberney's point, no Calle's sign. Pt does not present with an exam that would be consistent with an acute surgical abdomen at this time, tenderness palpation left lower quadrant and left flank. Musculoskeletal: Normal range of motion Neurologic: Alert and oriented to person, place and time. Skin: Kaplan, warm and dry. Psychiatric: Normal mood and affect. Behavior is normal. Judgment and thought content normal. Nursing note and vital signs have been reviewed Diagnostics: CT of the abdomen pelvis reveals: No nephrolithiasis or urinary obstruction. Incidental 4 cm right renal cortical cyst. Diverticulosis of the sigmoid colon suggesting of mild circumferential wall thickening distally without appreciable surrounding edema. Mild/early presentation of acute diverticulitis is not entirely excluded. Correlate clinically. CBC, CMP, lipase within normal limits. Therapeutics: NSS x1 L, ketorolac, Zofran Cipro, Flagyl Assessment and plan: This is a 59-year-old female who presents ER today complaining of left flank pain left lower quadrant abdominal discomfort. Patient reports she was recently treated with a urinary tract infection. Patient reports she did not have a CT scan of the abdomen pelvis at that time. Patient CT of her abdomen pelvis today reveals mild/early presentation of acute diverticulitis is a possibility. Patient reports that she feels much better after the pain medicines and nausea medicines here in the ED. Patient will be discharged home with a prescription for Flagyl, Cipro to treat diverticulitis and will also be given a prescription for Ultram and Zofran help her with her nausea and pain. Patient has been encouraged to follow-up with her primary care physician. She reports that she has an appointment in the next couple days with a kidney specialist. Patient does have a large amount of blood in her urine. Patient does have an appointment already with a kidney specialist this week. Reassessment at the time of disposition demonstrates that the patient is in no acute distress. The patient has remained stable throughout the entire ED visit and is without objective evidence for acute process requiring urgent intervention or hospitalization. The patient is stable for discharge, counseling is provided as documented above, discussed symptomatic treatment and specific conditions for return. I have spoken with the patient/caregiver and discussed todays findings, in addition to providing specific details for the plan of care. Questions are answered and there is agreement with the plan. Definitive disposition and diagnosis as appropriate pending reevaluation and review of above. left kidney Pain Score (Numeric/FACES): 8 - Related Data Allergies Allergy/AdvReac Type Severity Reaction Status Date / Time acetaminophen [From Percocet] Allergy Mild Hives Verified 09/06/20 23:02 oxycodone HCl [From Percocet] Allergy Airway Verified 09/06/20 23:02 Tightness sulfur dioxide Allergy Rash Verified 09/06/20 23:02 Home Meds: Home Meds Albuterol [Proventil Neb Soln] 0.63 mg NEB Q6H PRN 10/25/19 [History] Albuterol [Ventolin HFA] 1 puff INH Q6H PRN 10/25/19 [History] Budesonide/Formoterol Fumarate [Symbicort 160-4.5 Mcg Inhaler] 2 puff INH DAILY 10/25/19 [History] Tiotropium Vidal [Spiriva Respimat] 1 puff INH DAILY 08/10/20 [History] Ciprofloxacin HCl [Cipro] 500 mg PO BID #14 tablet 09/07/20 [Rx] Ondansetron [Zofran ODT] 4 mg PO Q6H PRN #12 tab.dis 09/07/20 [Rx] metroNIDAZOLE [Flagyl] 500 mg PO Q8H #21 tab 09/07/20 [Rx] traMADol [Ultram] 50 mg PO Q6H PRN #12 tab 09/07/20 [Rx] Past Medical History - Past Health History Medical/Surgical History: Denies Medical/Surgical History HEENT History: Reports: None Cardiovascular History: Reports: None Respiratory History: Reports: COPD Gastrointestinal History: Reports: None Genitourinary History: Reports: Other (See Below) Other Genitourinary History: cyst to R kidney [employer] History: Reports: Musculoskeletal History: Reports: Back Pain, Chronic, Fracture, Neck Pain, Chronic, Other (See Below) Other Musculoskeletal History: right hip pain, hx of fx right wrist Neurological History: Reports: Other (See Below) Other Neuro History: has ruptured disc in back Psychiatric History: Reports: None Endocrine/Metabolic History: Reports: Obesity/BMI 30+ Hematologic History: Reports: None Immunologic History: Reports: None Oncologic (Cancer) History: Reports: None Dermatologic History: Reports: None - Infectious Disease History Infectious Disease History: Reports: Chicken Pox - Past Surgical History Head Surgeries/Procedures: Reports: None Female Surgical History: Reports: Tubal Ligation Social & Family History - Family History Family Medical History: No Pertinent Family History Cardiac: Reports: CAD Neurological: Reports: CVA - Caffeine Use Caffeine Use: Reports: Coffee, Tea ED ROS GENERAL - Review of Systems Review Of Systems: See Below ED EXAM, GENERAL - Physical Exam Exam: See Below Course - Vital Signs Last Recorded V/S: Last Vital Signs Temp 98.7 F 09/06/20 23:04 Pulse 74 09/07/20 01:12 Resp 18 09/07/20 01:12 BP 136/65 09/07/20 01:12 Pulse Ox 96 09/07/20 01:12 - Orders/Labs/Meds Orders: Active Orders 24 hr Category Date Time Status Sodium Chloride 0.9% [Saline Flush] Med 09/06/20 23:13 Active 10 ml FLUSH ASDIRECTED PRN Sodium Chloride 0.9% [Saline Flush] Med 09/06/20 23:13 Active 2.5 ml FLUSH ASDIRECTED PRN Saline Lock Insert [OM.PC] Stat Oth 09/06/20 23:13 Ordered Medication Orders Sodium Chloride (Sodium Chloride 0.9% 10 Ml Syringe) 10 ml FLUSH ASDIRECTED PRN PRN Reason: Keep Vein Open Last Admin: 09/06/20 23:23 Dose: 10 ml Documented by: [email or web address] Sodium Chloride (Sodium Chloride 0.9% 2.5 Ml Syringe) 2.5 ml FLUSH ASDIRECTED PRN PRN Reason: Keep Vein Open Last Admin: 09/06/20 23:23 Dose: 2.5 ml Documented by: [id number] Labs: Laboratory Tests 09/06/20 09/06/20 09/07/20 Range/Units 23:25 23:25 01:08 WBC 7.85 (4.0-11.0) K/uL RBC 4.61 (4.30-5.90) M/uL Hgb 14.9 (12.0-16.0) g/dL Hct 45.1 (36.0-46.0) % MCV 97.8 (80.0-98.0) fL MCH 32.3 H (27.0-32.0) pg MCHC 33.0 (31.0-37.0) g/dL RDW Std Deviation 46.1 (28.0-62.0) fl RDW Coeff of Murtaza 13 (11.0-15.0) % Plt Count 228 (150-400) K/uL MPV 10.10 (7.40-12.00) fL Neut % (Auto) 60.3 (48.0-80.0) % Lymph % (Auto) 25.0 (16.0-40.0) % Faulkner % (Auto) 12.5 (0.0-15.0) % Eos % (Auto) 1.8 (0.0-7.0) % Baso % (Auto) 0.4 (0.0-1.5) % Neut # (Auto) 4.7 (1.4-5.7) K/uL Lymph # (Auto) 2.0 (0.6-2.4) K/uL Faulkner # (Auto) 1.0 H (0.0-0.8) K/uL Eos # (Auto) 0.1 (0.0-0.7) K/uL Baso # (Auto) 0.0 (0.0-0.1) K/uL Nucleated RBC % 0.0 /100WBC Nucleated RBCs # 0 K/uL Sodium 143 (136-145) mmol/L Potassium 4.3 (3.5-5.1) mmol/L Chloride 108 H (98-107) mmol/L Carbon Dioxide 28.6 (21.0-32.0) mmol/L BUN 16 (7.0-18.0) mg/dL Creatinine 1.0 (0.6-1.0) mg/dL Est Cr Clr Drug Dosing 46.72 mL/min Estimated GFR (MDRD) 56.4 ml/min Glucose 113 H (74-106) mg/dL Calcium 8.5 (8.5-10.1) mg/dL Total Bilirubin 0.3 (0.2-1.0) mg/dL AST 17 (15-37) IU/L ALT 22 (14-63) IU/L Alkaline Phosphatase 92 (46-116) U/L Total Protein 6.8 (6.4-8.2) g/dL Albumin 3.4 (3.4-5.0) g/dL Globulin 3.4 (2.6-4.0) g/dL Albumin/Globulin Ratio 1.0 (0.9-1.6) Urine Color RED Urine Appearance CLOUDY Urine pH 6.5 (5.0-8.0) Ur Specific Lee 1.025 (1.001-1.035) Urine Protein 30 H (NEGATIVE) mg/dL Urine Glucose (UA) NEGATIVE (NEGATIVE) mg/dL Urine Ketones NEGATIVE (NEGATIVE) mg/dL Urine Occult Blood LARGE H (NEGATIVE) Urine Nitrite NEGATIVE (NEGATIVE) Urine Bilirubin NEGATIVE (NEGATIVE) Urine Urobilinogen 0.2 (<2.0) EU/dL Ur Leukocyte Esterase NEGATIVE (NEGATIVE) Urine RBC TOO NUMEROUS TO CT H (0-2/HPF) Urine WBC 0-2 (0-5/HPF) Ur Epithelial Cells RARE (NONE-FEW) Urine Bacteria RARE (NEGATIVE) Urinalysis Comment Meds: Medications Generic Name Dose Route Start Last Admin Trade Name Jamison PRN Reason Stop Dose Admin Sodium Chloride 10 ml 09/06/20 23:13 09/06/20 23:23 Sodium Chloride 0.9% 10 Ml Syringe FLUSH 10 ml ASDIRECTED PRN Administration Keep Vein Open Sodium Chloride 2.5 ml 09/06/20 23:13 09/06/20 23:23 Sodium Chloride 0.9% 2.5 Ml Syringe FLUSH 2.5 ml ASDIRECTED PRN Administration Keep Vein Open Discontinued Medications Generic Name Dose Route Start Last Admin Trade Name Jamison PRN Reason Stop Dose Admin Ciprofloxacin 500 mg 09/07/20 00:58 09/07/20 01:09 Ciprofloxacin 500 Mg Tab PO 09/07/20 00:59 500 mg ONETIME ONE Administration Sodium Chloride 1,000 mls @ 999 mls/hr 09/06/20 23:13 09/06/20 23:22 Normal Saline IV 09/07/20 00:13 999 mls/hr .Bolus ONE Administration Ketorolac Tromethamine 15 mg 09/06/20 23:13 09/06/20 23:22 Ketorolac 15 Mg/Ml Sdv IVPUSH 09/06/20 23:14 15 mg ONETIME ONE Administration Metronidazole 500 mg 09/07/20 00:58 09/07/20 01:10 Metronidazole 250 Mg Tab PO 09/07/20 00:59 500 mg ONETIME ONE Administration Ondansetron HCl 4 mg 09/06/20 23:13 09/06/20 23:22 Ondansetron 4 Mg/2 Ml Sdv IVPUSH 09/06/20 23:14 4 mg ONETIME ONE Administration Tramadol HCl 50 mg 09/07/20 00:59 09/07/20 01:09 Tramadol 50 Mg Tab PO 09/07/20 01:00 50 mg ONETIME ONE Administration Departure - Departure Time of Disposition: 00:52 Disposition: Home, Self-Care 01 Condition: Good Clinical Impression: Diverticulitis, Abdominal pain, Renal cyst Hematuria Qualifiers: Hematuria type: unspecified type Qualified Code(s): R31.9 - Hematuria, unspecified - Discharge Information Prescriptions: Ciprofloxacin HCl [Cipro] 500 mg PO BID #14 tablet metroNIDAZOLE [Flagyl] 500 mg PO Q8H #21 tab traMADol [Ultram] 50 mg PO Q6H PRN #12 tab PRN Reason: Pain Ondansetron [Zofran ODT] 4 mg PO Q6H PRN #12 tab.dis PRN Reason: Nausea Instructions: Diverticulitis, Abdominal Pain, Adult, [id number] Referrals: PCP,None [Primary Care Provider] - Forms: ED Department Discharge Additional Instructions: You were seen and evaluated in the ER today secondary to pain to your left flank and left lower abdomen. The work-up in the emergency department did reveal that he might have signs of mild early diverticulitis. He will get started on Cipro Floxin and Flagyl which are antibiotics that we used to treat diverticulitis. You will also be sent home with medication for nausea and pain. Please make an appointment to see your family doctor in the next week. Please keep your appointment with your kidney doctor for further evaluation of your renal cyst and pain and discomfort. The following information is given to patients seen in the emergency department who are being discharged to home. This information is to outline your options for follow-up care. We provide all patients seen in our emergency department with a follow-up referral. The need for follow-up, as well as the timing and circumstances, are variable depending upon the specifics of your emergency department visit. If you don't have a primary care physician on staff, we will provide you with a referral. We always advise you to contact your personal physician following an emergency department visit to inform them of the circumstance of the visit and for follow-up with them and/or the need for any referrals to a consulting specialist. The emergency department will also refer you to a specialist when appropriate. This referral assures that you have the opportunity for follow-up care with a specialist. All of these measure are taken in an effort to provide you with optimal care, which includes your follow-up. Under all circumstances we always encourage you to contact your private physician who remains a resource for coordinating your care. When calling for follow-up care, please make the office aware that this follow-up is from your recent emergency room visit. If for any reason you are refused follow-up, please contact the [facility] Emergency Department at and asked to speak to the emergency department charge nurse. [facility] [address] [place] [id number] [facility] [address] [place] [id number] Sepsis Event Note (ED) - Evaluation Sepsis Screening Result: No Definite Risk - Focused Exam Vital Signs: Vital Signs Temp Pulse Resp BP Pulse Ox 09/07/20 01:12 74 18 136/65 96 09/06/20 23:04 98.7 F 83 18 154/75 H 92 L - My Orders Last 24 Hours: My Active Orders 09/06/20 23:13 Sodium Chloride 0.9% [Saline Flush] 10 ml FLUSH ASDIRECTED PRN Sodium Chloride 0.9% [Saline Flush] 2.5 ml FLUSH ASDIRECTED PRN Saline Lock Insert [OM.PC] Stat - Assessment/Plan Last 24 Hours: My Active Orders 09/06/20 23:13 Sodium Chloride 0.9% [Saline Flush] 10 ml FLUSH ASDIRECTED PRN Sodium Chloride 0.9% [Saline Flush] 2.5 ml FLUSH ASDIRECTED PRN Saline Lock Insert [OM.PC] Stat
[2020-09-07] MEDS ORDERED: metroNIDAZOLE 250 MG Tab PO ONE (00:58)
[2020-09-07] MEDS ORDERED: Ciprofloxacin 500 MG Tab PO ONE (00:58)
[2020-09-07] MEDS ORDERED: traMADol 50 MG Tab PO ONE (00:59)
[2020-09-07 01:12] VITALS: BP 136/65
[2020-09-07 01:34] VITALS: PULSE 76
== END 2020-09-07 01:37 | disposition home or self-care (01) ==
LOC: MW.ED 22:44
DX: K57.32 Diverticulitis of large intestine without perforation or abscess without bleeding (principal); N28.1 Cyst of kidney, acquired; R31.9 Hematuria, unspecified; J44.9 Chronic obstructive pulmonary disease, unspecified; E66.9 Obesity, unspecified; Z68.24 Body mass index [BMI] 24.0-24.9, adult; Z88.6 Allergy status to analgesic agent; Z88.5 Allergy status to narcotic agent; Z91.048 Other nonmedicinal substance allergy status; Z79.899 Other long term (current) drug therapy
CPT/HCPCS: 36415; 74176; 80053; 81001; 85025; 96374; 96375; 99284; A9270; J1885; J2405; J7030

== ENCOUNTER 2021-01-28 05:37 | Observation (INO) | payer MEDICAID ==
[2021-01-28] MEDS ORDERED: Albuterol/Ipratropium 3.0-0.5 MG/3 ML Neb Soln ONE (05:44)
[2021-01-28] MEDS ORDERED: Magnesium Sulfate/Water 50 ML ONE (05:45)
[2021-01-28] MEDS ORDERED: Albuterol/Ipratropium 3.0-0.5 MG/3 ML Neb Soln NEB ONE (05:46)
--- NOTE | 2021-01-28 05:51 | EDM.PDOC ---
<Lukas Khan - Last Filed: 01/28/21 07:58> ED HPI GENERAL MEDICAL PROBLEM - General Chief Complaint: Respiratory Problem Stated Complaint: COPD, SHORTNESS OF BREATH Time Seen by Provider: 01/28/21 05:46 - Related Data Allergies Allergy/AdvReac Type Severity Reaction Status Date / Time acetaminophen [From Percocet] Allergy Mild Hives Verified 01/28/21 05:56 oxycodone HCl [From Percocet] Allergy Airway Verified 01/28/21 05:56 Tightness sulfur dioxide Allergy Rash Verified 01/28/21 05:56 Home Meds: Home Meds Albuterol [Ventolin HFA] 1 puff INH Q6H PRN 10/25/19 [History] Albuterol/Ipratropium [DuoNeb 3.0-0.5 MG/3 ML] 3 ml NEB Q6H PRN 01/28/21 [History] Cholecalciferol (Vitamin D3) [Vitamin D3] 1,250 mcg PO .TWICE WEEKLY 01/28/21 [History] FLUoxetine HCl [Fluoxetine HCl] 20 mg PO DAILY 01/28/21 [History] Pantoprazole 40 mg PO DAILY 01/28/21 [History] Tiotropium [Spiriva HandiHaler] 18 mcg IH DAILY 01/28/21 [History] hydrOXYzine pamoate [Hydroxyzine Pamoate] 25 mg PO Q6H PRN 01/28/21 [History] predniSONE [Prednisone] 60 mg PO DAILY 01/28/21 [History] traMADol [Ultram] 50 mg PO BID PRN 01/28/21 [History] Course - Vital Signs Text/Narrative:: 070 2 AM at the end of my partners shift this patient is going to be admitted. She has 100% oxygen saturation on BiPAP and feels that she agrees with us with that we might try to wean the BiPAP in which case she could be admitted to the [facility] floor. Dr. Henry has excepted the patient for admission but is awaiting weaning from BiPAP to make sure that she is stable for the floor admission instead of intensive care unit. 754 AM patient drops her saturation 87% on 1 L. At 3 L she is at 93%. She feels better. Discussed with Dr. Henry. Admitted to observation as the patient was not very symptomatic with a low saturation of 87% on 1 L of oxygen, she is only on oxygen at night and only has a compressor and no sat monitor at home. The patient is expected to do well and possibly go home after 1 midnight. Departure - Departure Time of Disposition: 07:59 Disposition: Refer to Observation Clinical Impression: COPD exacerbation, Respiratory failure with hypoxia - Discharge Information <Jaiden Kruger - Last Filed: 01/28/21 19:12> ED HPI GENERAL MEDICAL PROBLEM - General Source of Information: Reports: Patient, EMS History Limitations: Reports: Respiratory Distress - History of Present Illness INITIAL COMMENTS - FREE TEXT/NARRATIVE: Patient is a 60-year-old female who was brought in by EMS for shortness of breath. Patient states that around 4 AM she woke up went to the bathroom and started having difficulty breathing. Says she had a lot of wheezing with difficulty area. She tried to do a nebulizer was helped slightly but did not fully improve her symptoms and she called 911. EMS gave her another neb and also steroids. Patient here was satting about 94% but doing evaluation started to panic and hyperventilate and oxygen level went down to 88. Patient was placed back on nasal cannula. She she currently complains of chest tightness denies any fever chills nausea vomiting or any sick contacts. Past Medical History - Past Health History Medical/Surgical History: Denies Medical/Surgical History HEENT History: Reports: None Cardiovascular History: Reports: None Respiratory History: Reports: COPD Gastrointestinal History: Reports: None Genitourinary History: Reports: Other (See Below) Other Genitourinary History: cyst to R kidney [employer] History: Reports: Musculoskeletal History: Reports: Back Pain, Chronic, Fracture, Neck Pain, Chronic, Other (See Below) Other Musculoskeletal History: right hip pain, hx of fx right wrist Neurological History: Reports: Other (See Below) Other Neuro History: has ruptured disc in back Psychiatric History: Reports: None Endocrine/Metabolic History: Reports: Obesity/BMI 30+ Hematologic History: Reports: None Immunologic History: Reports: None Oncologic (Cancer) History: Reports: None Dermatologic History: Reports: None - Infectious Disease History Infectious Disease History: Reports: Chicken Pox - Past Surgical History Head Surgeries/Procedures: Reports: None Female Surgical History: Reports: Tubal Ligation Social & Family History - Family History Family Medical History: No Pertinent Family History Cardiac: Reports: CAD Neurological: Reports: CVA - Caffeine Use Caffeine Use: Reports: Coffee, Tea ED ROS GENERAL - Review of Systems Review Of Systems: See Below Constitutional: Reports: No Symptoms HEENT: Reports: No Symptoms Respiratory: Reports: Shortness of Breath, Wheezing Cardiovascular: Reports: No Symptoms Endocrine: Reports: No Symptoms GI/Abdominal: Reports: No Symptoms : Reports: No Symptoms Musculoskeletal: Reports: No Symptoms Skin: Reports: No Symptoms Neurological: Reports: No Symptoms Psychiatric: Reports: No Symptoms Hematologic/Lymphatic: Reports: No Symptoms Immunologic: Reports: No Symptoms ED EXAM, GENERAL - Physical Exam Exam: See Below Exam Limited By: Respiratory Distress General Appearance: Moderate Distress Respiratory/Chest: No Accessory Muscle Use, Wheezing Cardiovascular: Normal Peripheral Pulses, Regular Rate, Rhythm GI/Abdominal: Normal Bowel Sounds, Soft, Non-Tender Back Exam: Normal Inspection Extremities: Normal Inspection Neurological: Alert, Oriented, Normal Cognition Course - Vital Signs Last Recorded V/S: Last Vital Signs Temp 97.3 F 01/28/21 16:00 Pulse 90 01/28/21 16:00 Resp 20 01/28/21 16:00 BP 135/79 01/28/21 16:00 Pulse Ox 90 L 01/28/21 16:00 - Orders/Labs/Meds Orders: Active Orders 24 hr Category Date Time Status BIPAP Adult [RT BiPAP/CPAP] [RC] ASDIRECTED Care 01/28/21 05:48 Active Medication Orders Albuterol/Ipratropium (Albuterol/Ipratropium 3.0-0.5 Mg/3 Ml Neb Soln) 3 ml NEB Q4HRRT [facility] Last Admin: 01/28/21 17:03 Dose: 3 ml Documented by: Admin: 01/28/21 13:40 Dose: 3 ml Documented by: Admin: 01/28/21 11:16 Dose: 3 ml Documented by: ZBIGNIEW Fluoxetine HCl (Fluoxetine 20 Mg Cap) 20 mg PO DAILY [facility] Guaifenesin (Guaifenesin 400 Mg Tab) 400 mg PO Q4H PRN PRN Reason: Cough Hydroxyzine Pamoate (Hydroxyzine Pamoate 25 Mg Cap) 25 mg PO Q6H PRN PRN Reason: anxiety/sleep Methylprednisolone Sodium Succinate (Methylprednisolone Sodium Succinate 40 Mg/1 Ml Sdv) 40 mg IVPUSH Q8H [facility] Last Admin: 01/28/21 17:42 Dose: 40 mg Documented by: Admin: 01/28/21 12:23 Dose: 40 mg Documented by: TASHIA Ondansetron HCl (Ondansetron 4 Mg/2 Ml Sdv) 4 mg IVPUSH Q4H PRN PRN Reason: Nausea Pantoprazole Sodium (Pantoprazole 40 Mg Tab.Cr) 40 mg PO DAILY [facility] Vitamin D3 50,000 (Unit Capsule) 1 each PO MoFr@0900 [facility] Sodium Chloride (Sodium Chloride 0.9% 2.5 Ml Syringe) 2.5 ml FLUSH ASDIRECTED PRN PRN Reason: Keep Vein Open Tramadol HCl (Tramadol 50 Mg Tab) 50 mg PO BID PRN PRN Reason: Pain Labs: Laboratory Tests 01/28/21 01/28/21 01/28/21 Range/Units 05:50 05:50 05:50 WBC 11.80 H (4.0-11.0) K/uL RBC 4.89 (4.30-5.90) M/uL Hgb 15.7 (12.0-16.0) g/dL Hct 46.7 H (36.0-46.0) % MCV 95.5 (80.0-98.0) fL MCH 32.1 H (27.0-32.0) pg MCHC 33.6 (31.0-37.0) g/dL RDW Std Deviation 48.0 (28.0-62.0) fl RDW Coeff of Murtaza 14 (11.0-15.0) % Plt Count 204 (150-400) K/uL MPV 9.40 (7.40-12.00) fL Neut % (Auto) 69.9 (48.0-80.0) % Lymph % (Auto) 19.4 (16.0-40.0) % [place] % (Auto) 10.2 (0.0-15.0) % Eos % (Auto) 0.4 (0.0-7.0) % Baso % (Auto) 0.1 (0.0-1.5) % Neut # (Auto) 8.3 H (1.4-5.7) K/uL Lymph # (Auto) 2.3 (0.6-2.4) K/uL [place] # (Auto) 1.2 H (0.0-0.8) K/uL Eos # (Auto) 0.1 (0.0-0.7) K/uL Baso # (Auto) 0.0 (0.0-0.1) K/uL Nucleated RBC % 0.0 /100WBC Nucleated RBCs # 0 K/uL Sodium 140 (136-145) mmol/L Potassium 4.8 (3.5-5.1) mmol/L Chloride 103 (98-107) mmol/L Carbon Dioxide 32.9 H (21.0-32.0) mmol/L BUN 18 (7.0-18.0) mg/dL Creatinine 1.1 H (0.6-1.0) mg/dL Est Cr Clr Drug Dosing 41.94 mL/min Estimated GFR (MDRD) 50.3 ml/min Glucose 99 (74-106) mg/dL Calcium 9.2 (8.5-10.1) mg/dL Phosphorus 6.0 H (2.6-4.7) mg/dL Magnesium 3.4 H (1.8-2.4) mg/dL Total Bilirubin 0.4 (0.2-1.0) mg/dL AST 20 (15-37) IU/L ALT 25 (14-63) IU/L Alkaline Phosphatase 63 (46-116) U/L Troponin I < 0.050 (0.000-0.056) ng/mL B-Natriuretic Peptide (<100) PG/ML Total Protein 6.8 (6.4-8.2) g/dL Albumin 3.8 (3.4-5.0) g/dL Globulin 3.0 (2.6-4.0) g/dL Albumin/Globulin Ratio 1.3 (0.9-1.6) SARS-CoV-2 RNA (AJ) NEGATIVE (NEGATIVE) 01/28/21 Range/Units 05:50 WBC (4.0-11.0) K/uL RBC (4.30-5.90) M/uL Hgb (12.0-16.0) g/dL Hct (36.0-46.0) % MCV (80.0-98.0) fL MCH (27.0-32.0) pg MCHC (31.0-37.0) g/dL RDW Std Deviation (28.0-62.0) fl RDW Coeff of Murtaza (11.0-15.0) % Plt Count (150-400) K/uL MPV (7.40-12.00) fL Neut % (Auto) (48.0-80.0) % Lymph % (Auto) (16.0-40.0) % [place] % (Auto) (0.0-15.0) % Eos % (Auto) (0.0-7.0) % Baso % (Auto) (0.0-1.5) % Neut # (Auto) (1.4-5.7) K/uL Lymph # (Auto) (0.6-2.4) K/uL [place] # (Auto) (0.0-0.8) K/uL Eos # (Auto) (0.0-0.7) K/uL Baso # (Auto) (0.0-0.1) K/uL Nucleated RBC % /100WBC Nucleated RBCs # K/uL Sodium (136-145) mmol/L Potassium (3.5-5.1) mmol/L Chloride (98-107) mmol/L Carbon Dioxide (21.0-32.0) mmol/L BUN (7.0-18.0) mg/dL Creatinine (0.6-1.0) mg/dL Est Cr Clr Drug Dosing mL/min Estimated GFR (MDRD) ml/min Glucose (74-106) mg/dL Calcium (8.5-10.1) mg/dL Phosphorus (2.6-4.7) mg/dL Magnesium (1.8-2.4) mg/dL Total Bilirubin (0.2-1.0) mg/dL AST (15-37) IU/L ALT (14-63) IU/L Alkaline Phosphatase (46-116) U/L Troponin I (0.000-0.056) ng/mL B-Natriuretic Peptide 55 (<100) PG/ML Total Protein (6.4-8.2) g/dL Albumin (3.4-5.0) g/dL Globulin (2.6-4.0) g/dL Albumin/Globulin Ratio (0.9-1.6) SARS-CoV-2 RNA (AJ) (NEGATIVE) Meds: Medications Generic Name Dose Route Start Last Admin Trade Name Jamison PRN Reason Stop Dose Admin Albuterol/Ipratropium 3 ml 01/28/21 10:15 01/28/21 17:03 Albuterol/Ipratropium 3.0-0.5 Mg/3 Ml Neb Soln NEB 3 ml Q4HRRT [facility] Administration Fluoxetine HCl 20 mg 01/29/21 09:00 Fluoxetine 20 Mg Cap PO DAILY [facility] Guaifenesin 400 mg 01/28/21 12:00 Guaifenesin 400 Mg Tab PO Q4H PRN Cough Hydroxyzine Pamoate 25 mg 01/28/21 21:00 Hydroxyzine Pamoate 25 Mg Cap PO Q6H PRN anxiety/sleep Methylprednisolone Sodium Succinate 40 mg 01/28/21 10:15 01/28/21 17:42 Methylprednisolone Sodium Succinate 40 Mg/1 Ml Sdv IVPUSH 40 mg Q8H [facility] Administration Ondansetron HCl 4 mg 01/28/21 10:15 Ondansetron 4 Mg/2 Ml Sdv IVPUSH Q4H PRN Nausea Pantoprazole Sodium 40 mg 01/29/21 09:00 Pantoprazole 40 Mg Tab.Cr PO DAILY [facility] Vitamin D3 50,000 1 each 01/31/21 09:00 Unit Capsule PO MoFr@0900 [facility] Sodium Chloride 2.5 ml 01/28/21 10:09 Sodium Chloride 0.9% 2.5 Ml Syringe FLUSH ASDIRECTED PRN Keep Vein Open Tramadol HCl 50 mg 01/28/21 15:02 Tramadol 50 Mg Tab PO BID PRN Pain Discontinued Medications Generic Name Dose Route Start Last Admin Trade Name Jamison PRN Reason Stop Dose Admin Albuterol/Ipratropium Confirm 01/28/21 05:44 01/28/21 06:23 Albuterol/Ipratropium 3.0-0.5 Mg/3 Ml Neb Soln Administered 01/28/21 05:45 Not Given Dose 3 ml .ROUTE .STK-MED ONE Albuterol/Ipratropium 3 ml 01/28/21 05:46 01/28/21 06:24 Albuterol/Ipratropium 3.0-0.5 Mg/3 Ml Neb Soln NEB 01/28/21 05:47 3 ml ONETIME ONE Administration Magnesium Sulfate Confirm 01/28/21 05:45 01/28/21 06:23 Magnesium Sulfate In Water 2 Gm/50 Ml Administered 01/28/21 05:46 Not Given Dose 50 mls @ as directed .ROUTE .STK-MED ONE Magnesium Sulfate 2 gm/ Premix 50 mls @ 12.5 mls/hr 01/28/21 06:22 01/28/21 06:23 IV 01/28/21 10:21 12.5 mls/hr ONETIME ONE Administration - Re-Assessments/Exams Free Text/Narrative Re-Assessment/Exam: 01/28/21 19:12 Patient was signed out to oncoming provider at 7 AM. Called and spoke to the hospitalist and she will admit however wants to wait to see if patient can be weaned off BiPAP this related to the oncoming provider as well. Critical Care Note - Critical Care Note Total Time (mins): 55 Comments: Critical Care Procedure Note Authorized and Performed by: Dr. Kruger Total critical care time: Approximately Due to a high probability of clinically significant, life threatening deterioration, the patient required my highest level of preparedness to intervene emergently and I personally spent this critical care time directly and personally managing the patient. This critical care time included obtaining a history; examining the patient; pulse oximetry; ordering and review of studies; arranging urgent treatment with development of a management plan; evaluation of patient's response to treatment; frequent reassessment; and, discussions with other providers. This critical care time was performed to assess and manage the high probability of imminent, life-threatening deterioration that could result in multi-organ failure. It was exclusive of separately billable procedures and treating other patients and teaching time. Sepsis Event Note (ED) - Focused Exam Vital Signs: Vital Signs Pulse Resp BP Pulse Ox 01/28/21 07:22 91 19 158/83 H 95 - My Orders Last 24 Hours: My Active Orders 01/28/21 05:48 BIPAP Adult [RT BiPAP/CPAP] [RC] ASDIRECTED - Assessment/Plan Last 24 Hours: My Active Orders 01/28/21 05:48 BIPAP Adult [RT BiPAP/CPAP] [RC] ASDIRECTED Plan: Is a 60-year-old female who brought in today for shortness of breath. Patient has diffuse wheezing on exam. Will give albuterol magnesium and likely start on BiPAP.
[2021-01-28] MEDS ORDERED: Magnesium Sulfate/Water 2 GM in Premix Bag 1 BAG IV ONE (06:22)
[2021-01-28 06:42] LABS: BLOOD UREA NITROGEN,BUN 18 mg/dL (7.0-18.0); CARBON DIOXIDE,CO2 32.9 mmol/L (21.0-32.0); CHLORIDE,CL 103 mmol/L (98-107); GLUCOSE RANDOM 99 mg/dL (74-106); POTASSIUM,K 4.8 mmol/L (3.5-5.1); SODIUM,NA 140 mmol/L (136-145)
--- NOTE | 2021-01-28 06:50 | CR ---
Indication: COPD and cough Comparison: Two-view chest October 25, 2019 Technique: Single AP view chest Findings: There is hyperinflation and chronic interstitial change. There is no focal consolidation, effusion, or pneumothorax. The cardiomediastinal silhouette is within normal limits. The bony thorax is grossly intact. Impression: No acute cardiopulmonary abnormality. Dictated by Fabián Sexton MD @ 01/28/2021 6:49:22 AM (Electronically Signed)
[2021-01-28] MEDS ORDERED: Sodium Chloride 0.9% 2.5 ML Syringe FLUSH PRN (10:09)
[2021-01-28] MEDS ORDERED: Ondansetron 4 MG/2 ML SDV IVPUSH PRN (10:15)
[2021-01-28] MEDS: Albuterol/Ipratropium 3.0-0.5 MG/3 ML Neb Soln NEB SCH ×4 (11:16→21:31)
--- NOTE | 2021-01-28 11:55 | PCM.HP.2 ---
H&P History of Present Illness - General Date of Service: 01/28/21 Admit Problem/Dx: Admission Diagnosis/Problem Admission Diagnosis/Problem Respiratory failure with hypoxia - History of Present Illness Initial Comments - Free Text/Narative: Patient is a 60-year-old female with past medical history of COPD, current smoker, acquired hemophilia who comes in with complains of shortness of breath that developed when she woke up this morning, patient tried using nebulizer at home but did not help much. Patient called EMS, on route she received IV Decadron, patient was hypoxic to 70s in the ER, patient received several doses of duo nebs in the ER as well as IV magnesium. Patient was started on BiPAP intermittently to help with work of breathing as she was getting very restless and anxious. Patient eventually was able to be weaned off the BiPAP and put on nasal cannula low flow. Chest x-ray showed hyperinflation of the lung but no focal infiltrate. Patient was admitted for further management. Patient states that she has been trying to quit but has not been able to use transdermal nicotine patch due to her history of developing extensive bruises due to acquired hemophilia. - Related Data Allergies/Adverse Reactions: Allergies Allergy/AdvReac Type Severity Reaction Status Date / Time acetaminophen [From Percocet] Allergy Mild Hives Verified 01/28/21 05:56 oxycodone HCl [From Percocet] Allergy Airway Verified 01/28/21 05:56 Tightness sulfur dioxide Allergy Rash Verified 01/28/21 05:56 Home Medications: Home Meds Albuterol [Proventil Neb Soln] 0.63 mg NEB Q6H PRN 10/25/19 [History] Albuterol [Ventolin HFA] 1 puff INH Q6H PRN 10/25/19 [History] Tiotropium [place] [Spiriva Respimat] 1 puff INH DAILY 08/10/20 [History] Cholecalciferol (Vitamin D3) [Vitamin D3] 5,000 unit PO DAILY 01/28/21 [History] FLUoxetine [PROzac] 20 mg PO DAILY 01/28/21 [History] Pantoprazole 40 mg PO DAILY 01/28/21 [History] hydrOXYzine pamoate [Hydroxyzine Pamoate] 25 mg PO BID 01/28/21 [History] predniSONE [Prednisone] 60 mg PO DAILY 01/28/21 [History] traMADol [Ultram] 50 mg PO BID PRN 01/28/21 [History] Past Medical History - Past Health History Medical/Surgical History: Denies Medical/Surgical History HEENT History: Reports: None Cardiovascular History: Reports: None, Other (See Below) Other Cardiovascular History: 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 Respiratory History: Reports: Asthma, COPD, SOB, Other (See Below) Other Respiratory History: Bronchopneumonia Gastrointestinal History: Reports: Chronic Constipation Genitourinary History: Reports: Other (See Below) Other Genitourinary History: cyst to R kidney, history of hematuria [employer] History: Reports: Musculoskeletal History: Reports: Back Pain, Chronic, Fracture, Neck Pain, Chronic, Other (See Below) Other Musculoskeletal History: right hip pain, hx of fx right wrist Neurological History: Reports: Other (See Below) Other Neuro History: has ruptured disc in back Psychiatric History: Reports: None Endocrine/Metabolic History: Reports: Obesity/BMI 30+ Insulin Pump Model and Pet Walker: None Hematologic History: Reports: None Immunologic History: Reports: None Oncologic (Cancer) History: Reports: None Dermatologic History: Reports: None - Infectious Disease History Infectious Disease History: Reports: Chicken Pox - Past Surgical History Head Surgeries/Procedures: Reports: None HEENT Surgical History: Reports: None Cardiovascular Surgical History: Reports: None Respiratory Surgical History: Reports: None GI Surgical History: Reports: None Female Surgical History: Reports: Cystoscopy, Tubal Ligation Endocrine Surgical History: Reports: None Neurological Surgical History: Reports: None Musculoskeletal Surgical History: Reports: None Oncologic Surgical History: Reports: None Social & Family History - Family History Family Medical History: No Pertinent Family History Cardiac: Reports: CAD Neurological: Reports: CVA - Tobacco Use Tobacco Use Status *Q: Current Every Day Tobacco User Years of Tobacco use: 40 Packs/Tins Daily: 0.2 - Caffeine Use Caffeine Use: Reports: Coffee - Recreational Drug Use Recreational Drug Use: No H&P Review of Systems - Review of Systems: Review Of Systems: See Below General: Reports: Malaise, Weakness. Denies: Fever, Chills Pulmonary: Reports: Shortness of Breath, Wheezing, Cough, Sputum Gastrointestinal: Denies: Abdominal Pain, Anorexia, Black Stool, Bloody Stool Genitourinary: Denies: Dysuria, Frequency, Burning, Pain Musculoskeletal: Denies: Neck Pain, Shoulder Pain, Arm Pain Skin: Denies: Cyanosis, Mottled Psychiatric: Denies: Confusion, Depression, Mood Lability Exam - Exam Exam: See Below - Vital Signs Vital Signs: Last Vital Signs Temp 36.0 C L 01/28/21 05:40 Pulse 91 01/28/21 10:10 Resp 20 01/28/21 10:10 BP 120/71 01/28/21 10:10 Pulse Ox 96 01/28/21 10:10 Weight: 56.9 kg - Exam Quality Assessment: Supplemental Oxygen Neck: Supple Lungs: Decreased Breath Sounds, Wheezing Cardiovascular: Regular Rate, Regular Rhythm, Normal S1 GI/Abdominal Exam: Normal Bowel Sounds, Soft, Non-Tender Back Exam: Normal Inspection, Full Range of Motion Extremities: Normal Inspection, Normal Range of Motion - Patient Data Lab Results Last 24 hrs: Laboratory Results - last 24 hr 01/28/21 01/28/21 01/28/21 Range/Units 05:50 05:50 05:50 WBC 11.80 H (4.0-11.0) K/uL RBC 4.89 (4.30-5.90) M/uL Hgb 15.7 (12.0-16.0) g/dL Hct 46.7 H (36.0-46.0) % MCV 95.5 (80.0-98.0) fL MCH 32.1 H (27.0-32.0) pg MCHC 33.6 (31.0-37.0) g/dL RDW Std Deviation 48.0 (28.0-62.0) fl RDW Coeff of Murtaza 14 (11.0-15.0) % Plt Count 204 (150-400) K/uL MPV 9.40 (7.40-12.00) fL Neut % (Auto) 69.9 (48.0-80.0) % Lymph % (Auto) 19.4 (16.0-40.0) % Hunt % (Auto) 10.2 (0.0-15.0) % Eos % (Auto) 0.4 (0.0-7.0) % Baso % (Auto) 0.1 (0.0-1.5) % Neut # (Auto) 8.3 H (1.4-5.7) K/uL Lymph # (Auto) 2.3 (0.6-2.4) K/uL Hunt # (Auto) 1.2 H (0.0-0.8) K/uL Eos # (Auto) 0.1 (0.0-0.7) K/uL Baso # (Auto) 0.0 (0.0-0.1) K/uL Nucleated RBC % 0.0 /100WBC Nucleated RBCs # 0 K/uL Sodium 140 (136-145) mmol/L Potassium 4.8 (3.5-5.1) mmol/L Chloride 103 (98-107) mmol/L Carbon Dioxide 32.9 H (21.0-32.0) mmol/L BUN 18 (7.0-18.0) mg/dL Creatinine 1.1 H (0.6-1.0) mg/dL Est Cr Clr Drug Dosing 41.94 mL/min Estimated GFR (MDRD) 50.3 ml/min Glucose 99 (74-106) mg/dL Calcium 9.2 (8.5-10.1) mg/dL Phosphorus 6.0 H (2.6-4.7) mg/dL Magnesium 3.4 H (1.8-2.4) mg/dL Total Bilirubin 0.4 (0.2-1.0) mg/dL AST 20 (15-37) IU/L ALT 25 (14-63) IU/L Alkaline Phosphatase 63 (46-116) U/L Troponin I < 0.050 (0.000-0.056) ng/mL B-Natriuretic Peptide (<100) PG/ML Total Protein 6.8 (6.4-8.2) g/dL Albumin 3.8 (3.4-5.0) g/dL Globulin 3.0 (2.6-4.0) g/dL Albumin/Globulin Ratio 1.3 (0.9-1.6) SARS-CoV-2 RNA (AJ) NEGATIVE (NEGATIVE) 01/28/21 Range/Units 05:50 WBC (4.0-11.0) K/uL RBC (4.30-5.90) M/uL Hgb (12.0-16.0) g/dL Hct (36.0-46.0) % MCV (80.0-98.0) fL MCH (27.0-32.0) pg MCHC (31.0-37.0) g/dL RDW Std Deviation (28.0-62.0) fl RDW Coeff of Murtaza (11.0-15.0) % Plt Count (150-400) K/uL MPV (7.40-12.00) fL Neut % (Auto) (48.0-80.0) % Lymph % (Auto) (16.0-40.0) % Hunt % (Auto) (0.0-15.0) % Eos % (Auto) (0.0-7.0) % Baso % (Auto) (0.0-1.5) % Neut # (Auto) (1.4-5.7) K/uL Lymph # (Auto) (0.6-2.4) K/uL Hunt # (Auto) (0.0-0.8) K/uL Eos # (Auto) (0.0-0.7) K/uL Baso # (Auto) (0.0-0.1) K/uL Nucleated RBC % /100WBC Nucleated RBCs # K/uL Sodium (136-145) mmol/L Potassium (3.5-5.1) mmol/L Chloride (98-107) mmol/L Carbon Dioxide (21.0-32.0) mmol/L BUN (7.0-18.0) mg/dL Creatinine (0.6-1.0) mg/dL Est Cr Clr Drug Dosing mL/min Estimated GFR (MDRD) ml/min Glucose (74-106) mg/dL Calcium (8.5-10.1) mg/dL Phosphorus (2.6-4.7) mg/dL Magnesium (1.8-2.4) mg/dL Total Bilirubin (0.2-1.0) mg/dL AST (15-37) IU/L ALT (14-63) IU/L Alkaline Phosphatase (46-116) U/L Troponin I (0.000-0.056) ng/mL B-Natriuretic Peptide 55 (<100) PG/ML Total Protein (6.4-8.2) g/dL Albumin (3.4-5.0) g/dL Globulin (2.6-4.0) g/dL Albumin/Globulin Ratio (0.9-1.6) SARS-CoV-2 RNA (AJ) (NEGATIVE) Result Diagrams: 01/28/21 05:50 01/28/21 05:50 Sepsis Event Note - Evaluation Sepsis Screening Result: No Definite Risk - Focused Exam Vital Signs: Vital Signs Temp Pulse Resp BP Pulse Ox 01/28/21 10:10 91 20 120/71 96 01/28/21 09:09 89 20 128/62 96 01/28/21 08:42 89 20 121/63 94 L 01/28/21 07:22 91 19 158/83 H 95 01/28/21 06:15 91 19 138/79 95 01/28/21 05:40 36.0 C L 96 32 H 187/90 H 70 L 01/28/21 05:37 78 L - Problem List (1) Smoker SNOMED Code(s): 00622836 ICD Code: F17.200 - NICOTINE DEPENDENCE, UNSPECIFIED, UNCOMPLICATED Status: Acute Current Visit: Yes (2) Acquired hemophilia SNOMED Code(s): 258833681 ICD Code: D68.311 - ACQUIRED HEMOPHILIA Status: Acute Current Visit: Yes (3) COPD exacerbation SNOMED Code(s): 715772891 ICD Code: J44.1 - CHRONIC OBSTRUCTIVE PULMONARY DISEASE W (ACUTE) EXACER BATION Status: Acute Current Visit: Yes (4) Respiratory failure with hypoxia SNOMED Code(s): 43594720450920929 ICD Code: J96.91 - RESPIRATORY FAILURE, UNSPECIFIED WITH HYPOXIA Status: Acute Current Visit: Yes Problem List Initiated/Reviewed/Updated: Yes Orders Last 24hrs: Active Orders 24 hr Category Date Time Status Admission Status [Patient Status] [ADT] Stat ADT 01/28/21 08:08 Active BIPAP Adult [RT BiPAP/CPAP] [RC] ASDIRECTED Care 01/28/21 05:48 Active Intake and Output [RC] QSHIFT Care 01/28/21 10:09 Active Oxygen Therapy [RC] PRN Care 01/28/21 10:09 Active RT Aerosol Therapy [RC] ASDIRECTED Care 01/28/21 10:10 Active Telemetry Monitoring [Cardiac Monitoring] [RC] Q8H Care 01/28/21 08:20 Active Up With Assistance [RC] ASDIRECTED Care 01/28/21 10:09 Active VTE/DVT Education [RC] PER UNIT ROUTINE Care 01/28/21 10:09 Active Vital Signs [RC] Q4H Care 01/28/21 10:09 Active Regular Diet [DIET] Diet 01/28/21 Breakfast Active Albuterol/Ipratropium [DuoNeb 3.0-0.5 MG/3 ML] Med 01/28/21 10:15 Active 3 ml NEB Q4HRRT Ondansetron [Zofran] Med 01/28/21 10:15 Active 4 mg IVPUSH Q4H PRN Sodium Chloride 0.9% [Saline Flush] Med 01/28/21 10:09 Active 2.5 ml FLUSH ASDIRECTED PRN methylPREDNISolone Sod Succ [Solu-MEDROL] Med 01/28/21 10:15 Active 40 mg IVPUSH Q8H Saline Lock Insert [OM.PC] Routine Oth 01/28/21 10:09 Ordered Resuscitation Status Routine Resus Stat 01/28/21 10:09 Ordered Medication Orders Albuterol/Ipratropium (Albuterol/Ipratropium 3.0-0.5 Mg/3 Ml Neb Soln) 3 ml NEB Q4HRRT [facility] Last Admin: 01/28/21 11:16 Dose: 3 ml Documented by: ZBIGNIEW Methylprednisolone Sodium Succinate (Methylprednisolone Sodium Succinate 40 Mg/1 Ml Sdv) 40 mg IVPUSH Q8H [facility] Ondansetron HCl (Ondansetron 4 Mg/2 Ml Sdv) 4 mg IVPUSH Q4H PRN PRN Reason: Nausea Sodium Chloride (Sodium Chloride 0.9% 2.5 Ml Syringe) 2.5 ml FLUSH ASDIRECTED PRN PRN Reason: Keep Vein Open Assessment/Plan Comment:: 60-year-old female admitted for COPD exacerbation resulting in hypoxic respiratory failure Patient generally uses 1 L of oxygen at night, during the day she does not use oxygen Currently patient has been weaned off the BiPAP is needing 2 L of oxygen saturating well medical breathing is much better Continue IV Solu-Medrol every 8 hours 40 mg Continue duo nebs scheduled for now Guaifenesin as needed cough SCDs for DVT prophylaxis Resume home meds as appropriate
[2021-01-28] MEDS: methylPREDNISolone Sodium Succinate 40 MG/1 ML SDV IVPUSH SCH ×2 (12:23→17:42)
[2021-01-28] MEDS: traMADol 50 MG Tab PO PRN (21:15)
[2021-01-28] MEDS: hydrOXYzine Pamoate 25 MG Cap PO PRN (21:15)
[2021-01-29] MEDS: methylPREDNISolone Sodium Succinate 40 MG/1 ML SDV IVPUSH SCH ×3 (02:09→21:23)
[2021-01-29] MEDS: Albuterol/Ipratropium 3.0-0.5 MG/3 ML Neb Soln NEB SCH ×6 (02:09→21:25)
[2021-01-29] MEDS: FLUoxetine 20 MG Cap PO SCH (08:05)
[2021-01-29] MEDS: Pantoprazole 40 MG Tab.CR PO SCH (08:05)
[2021-01-29 08:42] LABS: BLOOD UREA NITROGEN,BUN 20 mg/dL (7.0-18.0); CARBON DIOXIDE,CO2 32.5 mmol/L (21.0-32.0); CHLORIDE,CL 103 mmol/L (98-107); GLUCOSE RANDOM 121 mg/dL (74-106); POTASSIUM,K 3.9 mmol/L (3.5-5.1); SODIUM,NA 142 mmol/L (136-145)
--- NOTE | 2021-01-29 14:16 | PCM.PN ---
- General Info Date of Service: 01/29/21 Admission Dx/Problem (Free Text): Admission Diagnosis/Problem Admission Diagnosis/Problem Respiratory failure with hypoxia Subjective Update: Patient seen at bedside, no acute complaints, looks a little flushed, no itching, shortness of breath is improving patient currently requiring only 1 L of oxygen on room air resting Functional Status: Reports: Pain Controlled, Tolerating Diet, Ambulating - Review of Systems General: Reports: Fatigue, Malaise. Denies: Fever, Weakness Pulmonary: Reports: Shortness of Breath Cardiovascular: Reports: Dyspnea on Exertion. Denies: Chest Pain, Palpitations Gastrointestinal: Denies: Abdominal Pain, Constipation Genitourinary: Denies: Dysuria, Frequency, Burning Musculoskeletal: Denies: Neck Pain, Shoulder Pain, Arm Pain Skin: Denies: Cyanosis, Jaundice - Patient Data Vitals - Most Recent: Last Vital Signs Temp 36.6 C 01/29/21 12:00 Pulse 98 01/29/21 12:00 Resp 16 01/29/21 12:00 BP 133/62 01/29/21 12:00 Pulse Ox 91 L 01/29/21 12:00 Weight - Most Recent: 56.9 kg I&O - Last 24 Hours: Intake & Output 01/28/21 01/29/21 01/29/21 22:59 06:59 14:59 Intake Total 600 Output Total 850 Balance -250 Lab Results Last 24 Hours: Laboratory Results - last 24 hr 01/29/21 01/29/21 Range/Units 06:45 06:45 WBC 11.38 H (4.0-11.0) K/uL RBC 4.68 (4.30-5.90) M/uL Hgb 14.6 (12.0-16.0) g/dL Hct 44.1 (36.0-46.0) % MCV 94.2 (80.0-98.0) fL MCH 31.2 (27.0-32.0) pg MCHC 33.1 (31.0-37.0) g/dL RDW Std Deviation 47.1 (28.0-62.0) fl RDW Coeff of Murtaza 14 (11.0-15.0) % Plt Count 179 (150-400) K/uL MPV 10.00 (7.40-12.00) fL Neut % (Auto) 91.6 H (48.0-80.0) % Lymph % (Auto) 3.3 L (16.0-40.0) % Kern % (Auto) 5.0 (0.0-15.0) % Eos % (Auto) 0.0 (0.0-7.0) % Baso % (Auto) 0.1 (0.0-1.5) % Neut # (Auto) 10.4 H (1.4-5.7) K/uL Lymph # (Auto) 0.4 L (0.6-2.4) K/uL Kern # (Auto) 0.6 (0.0-0.8) K/uL Eos # (Auto) 0.0 (0.0-0.7) K/uL Baso # (Auto) 0.0 (0.0-0.1) K/uL Nucleated RBC % 0.0 /100WBC Nucleated RBCs # 0 K/uL Sodium 142 (136-145) mmol/L Potassium 3.9 (3.5-5.1) mmol/L Chloride 103 (98-107) mmol/L Carbon Dioxide 32.5 H (21.0-32.0) mmol/L BUN 20 H (7.0-18.0) mg/dL Creatinine 0.9 (0.6-1.0) mg/dL Est Cr Clr Drug Dosing 51.26 mL/min Estimated GFR (MDRD) > 60.0 ml/min Glucose 121 H (74-106) mg/dL Calcium 9.4 (8.5-10.1) mg/dL Med Orders - Current: Current Medications Albuterol/Ipratropium (Albuterol/Ipratropium 3.0-0.5 Mg/3 Ml Neb Soln) 3 ml NEB Q4HRRT [facility] Last Admin: 01/29/21 13:31 Dose: 3 ml Documented by: Fluoxetine HCl (Fluoxetine 20 Mg Cap) 20 mg PO DAILY [facility] Last Admin: 01/29/21 08:05 Dose: 20 mg Documented by: Guaifenesin (Guaifenesin 400 Mg Tab) 400 mg PO Q4H PRN PRN Reason: Cough Hydroxyzine Pamoate (Hydroxyzine Pamoate 25 Mg Cap) 25 mg PO Q6H PRN PRN Reason: anxiety/sleep Last Admin: 01/28/21 21:15 Dose: 25 mg Documented by: Methylprednisolone Sodium Succinate (Methylprednisolone Sodium Succinate 40 Mg/1 Ml Sdv) 40 mg IVPUSH Q8H [facility] Last Admin: 01/29/21 10:38 Dose: 40 mg Documented by: Ondansetron HCl (Ondansetron 4 Mg/2 Ml Sdv) 4 mg IVPUSH Q4H PRN PRN Reason: Nausea Pantoprazole Sodium (Pantoprazole 40 Mg Tab.Cr) 40 mg PO DAILY [facility] Last Admin: 01/29/21 08:05 Dose: 40 mg Documented by: Vitamin D3 50,000 (Unit Capsule) 1 each PO MoFr@0900 [facility] Sodium Chloride (Sodium Chloride 0.9% 2.5 Ml Syringe) 2.5 ml FLUSH ASDIRECTED PRN PRN Reason: Keep Vein Open Tramadol HCl (Tramadol 50 Mg Tab) 50 mg PO BID PRN PRN Reason: Pain Last Admin: 01/28/21 21:15 Dose: 50 mg Documented by: Discontinued Medications Albuterol/Ipratropium (Albuterol/Ipratropium 3.0-0.5 Mg/3 Ml Neb Soln) Confirm Administered Dose 3 ml .ROUTE .STK-MED ONE Stop: 01/28/21 05:45 Last Admin: 01/28/21 06:23 Dose: Not Given Documented by: Albuterol/Ipratropium (Albuterol/Ipratropium 3.0-0.5 Mg/3 Ml Neb Soln) 3 ml NEB ONETIME ONE Stop: 01/28/21 05:47 Last Admin: 01/28/21 06:24 Dose: 3 ml Documented by: Magnesium Sulfate (Magnesium Sulfate In Water 2 Gm/50 Ml) Confirm Administered Dose 50 mls @ as directed .ROUTE .STK-MED ONE Stop: 01/28/21 05:46 Last Admin: 01/28/21 06:23 Dose: Not Given Documented by: Magnesium Sulfate 2 gm/ Premix 50 mls @ 12.5 mls/hr IV ONETIME ONE Stop: 01/28/21 10:21 Last Admin: 01/28/21 06:23 Dose: 12.5 mls/hr Documented by: - Exam General: Alert, Oriented, Cooperative Neck: Supple, Trachea Midline Lungs: Normal Respiratory Effort, Decreased Breath Sounds. No: Wheezing Cardiovascular: Regular Rate, Regular Rhythm GI/Abdominal Exam: Normal Bowel Sounds, Soft, Non-Tender - Patient Data Lab Results Last 24 hrs: Laboratory Results - last 24 hr 01/29/21 01/29/21 Range/Units 06:45 06:45 WBC 11.38 H (4.0-11.0) K/uL RBC 4.68 (4.30-5.90) M/uL Hgb 14.6 (12.0-16.0) g/dL Hct 44.1 (36.0-46.0) % MCV 94.2 (80.0-98.0) fL MCH 31.2 (27.0-32.0) pg MCHC 33.1 (31.0-37.0) g/dL RDW Std Deviation 47.1 (28.0-62.0) fl RDW Coeff of Murtaza 14 (11.0-15.0) % Plt Count 179 (150-400) K/uL MPV 10.00 (7.40-12.00) fL Neut % (Auto) 91.6 H (48.0-80.0) % Lymph % (Auto) 3.3 L (16.0-40.0) % Kern % (Auto) 5.0 (0.0-15.0) % Eos % (Auto) 0.0 (0.0-7.0) % Baso % (Auto) 0.1 (0.0-1.5) % Neut # (Auto) 10.4 H (1.4-5.7) K/uL Lymph # (Auto) 0.4 L (0.6-2.4) K/uL Kern # (Auto) 0.6 (0.0-0.8) K/uL Eos # (Auto) 0.0 (0.0-0.7) K/uL Baso # (Auto) 0.0 (0.0-0.1) K/uL Nucleated RBC % 0.0 /100WBC Nucleated RBCs # 0 K/uL Sodium 142 (136-145) mmol/L Potassium 3.9 (3.5-5.1) mmol/L Chloride 103 (98-107) mmol/L Carbon Dioxide 32.5 H (21.0-32.0) mmol/L BUN 20 H (7.0-18.0) mg/dL Creatinine 0.9 (0.6-1.0) mg/dL Est Cr Clr Drug Dosing 51.26 mL/min Estimated GFR (MDRD) > 60.0 ml/min Glucose 121 H (74-106) mg/dL Calcium 9.4 (8.5-10.1) mg/dL Result Diagrams: 01/29/21 06:45 01/29/21 06:45 Sepsis Event Note - Evaluation Sepsis Screening Result: Possible Sepsis Risk - Focused Exam Vital Signs: Vital Signs Temp Pulse Resp BP Pulse Ox 01/29/21 12:00 36.6 C 98 16 133/62 91 L 01/29/21 08:00 36.3 C 102 H 18 132/57 L 93 L 01/29/21 04:00 36.5 C 94 16 128/65 90 L - Problem List & Annotations (1) Smoker SNOMED Code(s): 74097282 Code(s): F17.200 - NICOTINE DEPENDENCE, UNSPECIFIED, UNCOMPLICATED Status: Acute Current Visit: Yes (2) Acquired hemophilia SNOMED Code(s): 005357085 Code(s): D68.311 - ACQUIRED HEMOPHILIA Status: Acute Current Visit: Yes (3) COPD exacerbation SNOMED Code(s): 353943303 Code(s): J44.1 - CHRONIC OBSTRUCTIVE PULMONARY DISEASE W (ACUTE) EXACERBATION Status: Acute Current Visit: Yes (4) Respiratory failure with hypoxia SNOMED Code(s): 63833766274889023 Code(s): J96.91 - RESPIRATORY FAILURE, UNSPECIFIED WITH HYPOXIA Status: Acute Current Visit: Yes - Problem List Review Problem List Initiated/Reviewed/Updated: Yes - My Orders Last 24 Hours: My Active Orders 01/28/21 15:02 traMADol [Ultram] 50 mg PO BID PRN 01/28/21 21:00 hydrOXYzine pamoate [Vistaril] 25 mg PO Q6H PRN 01/29/21 09:00 FLUoxetine [PROzac] 20 mg PO DAILY Pantoprazole [ProTONIX] 40 mg PO DAILY 01/31/21 09:00 Patient's Own Medication [Ptom] 1 each PO MoFr@0900 - Plan Plan:: 60-year-old female admitted for COPD exacerbation resulting in hypoxic r espiratory failure Patient generally uses 1 L of oxygen at night, during the day she does not use oxygen Currently patient has been weaned off the BiPAP is needing 1 L of oxygen saturating well medical breathing is much better Continue IV Solu-Medrol every 12 hours 40 mg Continue duo nebs scheduled for now Guaifenesin as needed cough SCDs for DVT prophylaxis Resume home meds as appropriate
[2021-01-29] MEDS ORDERED: FLUoxetine 20 MG Cap PO SCH (15:30)
[2021-01-29] MEDS: traMADol 50 MG Tab PO PRN (21:23)
[2021-01-29] MEDS: hydrOXYzine Pamoate 25 MG Cap PO PRN (21:24)
[2021-01-30] MEDS: Albuterol/Ipratropium 3.0-0.5 MG/3 ML Neb Soln NEB SCH ×3 (01:31→09:12)
[2021-01-30 06:56] LABS: CARBON DIOXIDE,CO2 35.8 mmol/L (21.0-32.0)
[2021-01-30] MEDS: Pantoprazole 40 MG Tab.CR PO SCH (08:32)
[2021-01-30] MEDS: methylPREDNISolone Sodium Succinate 40 MG/1 ML SDV IVPUSH SCH (08:33)
[2021-01-30] MEDS: FLUoxetine 20 MG Cap PO SCH (08:33)
[2021-01-30] MEDS: Lactated Ringers 500 ML IV ONE ×2 (11:00→14:00)
[2021-01-30 11:40] VITALS: BP 160/72; PULSE 82
--- NOTE | 2021-01-30 13:18 | PCM.DCSUM1 ---
Discharge Summary - Hospital Course Free Text/Narrative:: Patient is a 60-year-old female with past medical history of COPD, current smoker, acquired hemophilia who comes in with complains of shortness of breath that developed when she woke up this morning, patient tried using nebulizer at home but did not help much. Patient called EMS, on route she received IV Decadron, patient was hypoxic to 70s in the ER, patient received several doses of duo nebs in the ER as well as IV magnesium. Patient was started on BiPAP intermittently to help with work of breathing as she was getting very restless and anxious. Patient eventually was able to be weaned off the BiPAP and put on nasal cannula low flow. Chest x-ray showed hyperinflation of the lung but no focal infiltrate. Patient was admitted for further management. Patient states that she has been trying to quit but has not been able to use transdermal nicotine patch due to her history of developing extensive bruises due to acquired hemophilia. Patient was started on IV Solu-Medrol, Combivent scheduled, duo nebs as needed for shortness of breath as well as oxygen via nasal cannula to maintain pulse ox more than 88%. Patient continued to have decreased breath sounds and wheezing for first 24 hours and thereafter slowly her breath sounds improved, she was feeling much better, eating and drinking better ambulating and urinating. Patient continued to need 1 L of oxygen while resting although at home she only uses oxygen at night. I explained the patient this may be progression of her COPD due to her ongoing smoking. Patient understands that this might be her new baseline but there is a possibility that if she cuts back on smoking and continues to do incentive spirometry that she might be able to wean back to oxygen to room air on rest. Patient understands importance of quitting smoking and will follow up with her primary care upon discharge. Patient was hemodynamically stable for discharge and was recommended to keep 1 L of oxygen while resting and slowly wean herself off as able. Patient already had oral steroid pills from prior prescription so was not sent on oral steroids. Patient was sent home on guaifenesin for cough. Patient was recommended to follow-up with her primary care provider soon after discharge. Diagnosis: Stroke: No - Discharge Data Discharge Date: 01/30/21 Discharge Disposition: Home, Self-Care 01 Condition: Fair - Referral to Home Health Primary Care Physician: PCP None - Discharge Diagnosis/Problem(s) (1) Smoker SNOMED Code(s): 05621532 ICD Code: F17.200 - NICOTINE DEPENDENCE, UNSPECIFIED, UNCOMPLICATED Status: Acute (2) Acquired hemophilia SNOMED Code(s): 111464741 ICD Code: D68.311 - ACQUIRED HEMOPHILIA Status: Acute (3) COPD exacerbation SNOMED Code(s): 196359730 ICD Code: J44.1 - CHRONIC OBSTRUCTIVE PULMONARY DISEASE W (ACUTE) EXACERBATION Status: Acute (4) Respiratory failure with hypoxia SNOMED Code(s): 54772624831742549 ICD Code: J96.91 - RESPIRATORY FAILURE, UNSPECIFIED WITH HYPOXIA Status: Acute - Patient Instructions Diet: Regular Diet as Tolerated Activity: As Tolerated Driving: May Drive Today Showering/Bathing: May Shower Notify Provider of: Fever, Increased Pain, Swelling and Redness, Drainage, Nausea and/or Vomiting - Discharge Plan *PRESCRIPTION DRUG MONITORING PROGRAM REVIEWED*: No *COPY OF PRESCRIPTION DRUG MONITORING REPORT IN PATIENT CHRISTA: No Prescriptions/Med Rec: guaiFENesin [Mucus Relief] 400 mg PO Q4H PRN #20 tablet PRN Reason: Cough Tobacco Cessation Medication: Prescription Refused Home Medications: Home Meds Albuterol [Ventolin HFA] 1 puff INH Q6H PRN 10/25/19 [History] Albuterol/Ipratropium [DuoNeb 3.0-0.5 MG/3 ML] 3 ml NEB Q6H PRN 01/28/21 [History] Cholecalciferol (Vitamin D3) [Vitamin D3] 1,250 mcg PO .TWICE WEEKLY 01/28/21 [History] FLUoxetine HCl [Fluoxetine HCl] 20 mg PO DAILY 01/28/21 [History] Pantoprazole 40 mg PO DAILY 01/28/21 [History] Tiotropium [Spiriva HandiHaler] 18 mcg IH DAILY 01/28/21 [History] hydrOXYzine pamoate [Hydroxyzine Pamoate] 25 mg PO Q6H PRN 01/28/21 [History] predniSONE [Prednisone] 60 mg PO DAILY 01/28/21 [History] traMADol [Ultram] 50 mg PO BID PRN 01/28/21 [History] guaiFENesin [Mucus Relief] 400 mg PO Q4H PRN #20 tablet 01/30/21 [Rx] Patient Handouts: Chronic Obstructive Pulmonary Disease, [id number], Home Oxygen Use, Adult Referrals: PCP,None [Primary Care Provider] - - Discharge Summary/Plan Comment DC Time >30 min.: No Total # of Minutes for Discharge Time: 15 - Patient Data Vitals - Most Recent: Last Vital Signs Temp 36.6 C 01/30/21 11:39 Pulse 82 01/30/21 11:39 Resp 16 01/30/21 11:39 BP 160/72 H 01/30/21 11:39 Pulse Ox 97 01/30/21 11:39 Weight - Most Recent: 56.9 kg I&O - Last 24 hours: Intake & Output 01/29/21 01/30/21 01/30/21 22:59 06:59 14:59 Intake Total 480 550 Output Total 700 650 Balance -220 -100 Lab Results - Last 24 hrs: Laboratory Results - last 24 hr 01/30/21 01/30/21 Range/Units 05:57 05:57 WBC 13.93 H (4.0-11.0) K/uL RBC 4.81 (4.30-5.90) M/uL Hgb 14.9 (12.0-16.0) g/dL Hct 46.1 H (36.0-46.0) % MCV 95.8 (80.0-98.0) fL MCH 31.0 (27.0-32.0) pg MCHC 32.3 (31.0-37.0) g/dL RDW Std Deviation 48.7 (28.0-62.0) fl RDW Coeff of Murtaza 14 (11.0-15.0) % Plt Count 192 (150-400) K/uL MPV 9.30 (7.40-12.00) fL Neut % (Auto) 89.7 H (48.0-80.0) % Lymph % (Auto) 4.7 L (16.0-40.0) % Porter % (Auto) 5.6 (0.0-15.0) % Eos % (Auto) 0.0 (0.0-7.0) % Baso % (Auto) 0.0 (0.0-1.5) % Neut # (Auto) 12.5 H (1.4-5.7) K/uL Lymph # (Auto) 0.7 (0.6-2.4) K/uL Porter # (Auto) 0.8 (0.0-0.8) K/uL Eos # (Auto) 0.0 (0.0-0.7) K/uL Baso # (Auto) 0.0 (0.0-0.1) K/uL Nucleated RBC % 0.0 /100WBC Nucleated RBCs # 0 K/uL Sodium 144 (136-145) mmol/L Potassium 5.0 (3.5-5.1) mmol/L Chloride 105 (98-107) mmol/L Carbon Dioxide 35.8 H (21.0-32.0) mmol/L BUN 25 H (7.0-18.0) mg/dL Creatinine 1.2 H (0.6-1.0) mg/dL Est Cr Clr Drug Dosing 38.44 mL/min Estimated GFR (MDRD) 45.5 ml/min Glucose 117 H (74-106) mg/dL Calcium 9.4 (8.5-10.1) mg/dL Med Orders - Current: Current Medications Albuterol/Ipratropium (Albuterol/Ipratropium 3.0-0.5 Mg/3 Ml Neb Soln) 3 ml NEB Q4HRRT [facility] Last Admin: 01/30/21 09:12 Dose: 3 ml Documented by: Fluoxetine HCl (Fluoxetine 20 Mg Cap) 20 mg PO DAILY [facility] Last Admin: 01/30/21 08:33 Dose: 20 mg Documented by: Guaifenesin (Guaifenesin 400 Mg Tab) 400 mg PO Q4H PRN PRN Reason: Cough Last Admin: 01/30/21 08:57 Dose: 400 mg Documented by: Hydroxyzine Pamoate (Hydroxyzine Pamoate 25 Mg Cap) 25 mg PO Q6H PRN PRN Reason: anxiety/sleep Last Admin: 01/29/21 21:24 Dose: 25 mg Documented by: Methylprednisolone Sodium Succinate (Methylprednisolone Sodium Succinate 40 Mg/1 Ml Sdv) 40 mg IVPUSH Q12H [facility] Last Admin: 01/30/21 08:33 Dose: 40 mg Documented by: Ondansetron HCl (Ondansetron 4 Mg/2 Ml Sdv) 4 mg IVPUSH Q4H PRN PRN Reason: Nausea Pantoprazole Sodium (Pantoprazole 40 Mg Tab.Cr) 40 mg PO DAILY [facility] Last Admin: 01/30/21 08:32 Dose: 40 mg Documented by: Vitamin D3 50,000 (Unit Capsule) 1 each PO MoFr@0900 [facility] Sodium Chloride (Sodium Chloride 0.9% 2.5 Ml Syringe) 2.5 ml FLUSH ASDIRECTED PRN PRN Reason: Keep Vein Open Tramadol HCl (Tramadol 50 Mg Tab) 50 mg PO BID PRN PRN Reason: Pain Last Admin: 01/29/21 21:23 Dose: 50 mg Documented by: Discontinued Medications Albuterol/Ipratropium (Albuterol/Ipratropium 3.0-0.5 Mg/3 Ml Neb Soln) Confirm Administered Dose 3 ml .ROUTE .STK-MED ONE Stop: 01/28/21 05:45 Last Admin: 01/28/21 06:23 Dose: Not Given Documented by: Albuterol/Ipratropium (Albuterol/Ipratropium 3.0-0.5 Mg/3 Ml Neb Soln) 3 ml NEB ONETIME ONE Stop: 01/28/21 05:47 Last Admin: 01/28/21 06:24 Dose: 3 ml Documented by: Fluoxetine HCl (Fluoxetine 20 Mg Cap) 20 mg PO DAILY [facility] Last Admin: 01/29/21 16:39 Dose: Not Given Documented by: Magnesium Sulfate (Magnesium Sulfate In Water 2 Gm/50 Ml) Confirm Administered Dose 50 mls @ as directed .ROUTE .STK-MED ONE Stop: 01/28/21 05:46 Last Admin: 01/28/21 06:23 Dose: Not Given Documented by: Magnesium Sulfate 2 gm/ Premix 50 mls @ 12.5 mls/hr IV ONETIME ONE Stop: 01/28/21 10:21 Last Admin: 01/28/21 06:23 Dose: 12.5 mls/hr Documented by: Lactated Ringer's (Ringers, Lactated) 500 mls @ 250 mls/hr IV .BOLUS ONE Stop: 01/30/21 12:59 Methylprednisolone Sodium Succinate (Methylprednisolone Sodium Succinate 40 Mg/1 Ml Sdv) 40 mg IVPUSH Q8H [facility] Last Admin: 01/29/21 10:38 Dose: 40 mg Documented by:
[2021-01-31] MEDS ORDERED: VITAMIN D3 50000 UNIT PO SCH (09:00)
== END 2021-01-30 14:02 | disposition home or self-care (01) ==
LOC: MW.ED 05:37 → MW.MS 08:08
PROVIDERS: ADMIT Student in an Organized Health Care Education/Training Program; ATTEND Student in an Organized Health Care Education/Training Program
DX: J96.91 Respiratory failure, unspecified with hypoxia (principal); J44.1 Chronic obstructive pulmonary disease with (acute) exacerbation; D68.311 Acquired hemophilia; F17.210 Nicotine dependence, cigarettes, uncomplicated; Z88.8 Allergy status to other drugs, medicaments and biological substances; Z20.822 Contact with and (suspected) exposure to COVID-19
CPT/HCPCS: 36415; 71045; 80048; 80053; 83735; 83880; 84100; 84484; 85025; 87635; 94640; 94660; 99285; A9270; J2920; J3475; J7120; J7620-GY; U0002

== ENCOUNTER 2021-03-02 11:49 | Inpatient (IN) | payer MEDICAID ==
[2021-03-02] MEDS ORDERED: Albuterol/Ipratropium 3.0-0.5 MG/3 ML Neb Soln NEB ONE (12:44)
[2021-03-02] MEDS ORDERED: Lactated Ringers 1,000 ML IV SCH (12:45)
--- NOTE | 2021-03-02 12:46 | CR ---
INDICATION: Shortness of breath, cough TECHNIQUE: Chest radiograph 1 view COMPARISON: 01/28/2021 FINDINGS: Mediastinum: The mediastinum is normal in appearance. The heart silhouette is normal in size and morphology. Lung: Consolidation of the right lung base is present surrounding an area central lucency measuring 2.4 cm. Bilateral pulmonary hyperinflation and lucency noted, suggestive of moderate, stable pulmonary emphysema. No sign of pleural effusion seen. No pneumothorax is identified. Bone and Soft tissue: Unremarkable for age. IMPRESSIONS: 1. Consolidation of the right lung base is present surrounding an area central lucency measuring 2.4 cm. Further evaluation with CT may be helpful to exclude lobar pneumonia with a pulmonary abscess. 2. Bilateral pulmonary hyperinflation and lucency noted, suggestive of moderate, stable pulmonary emphysema. Dictated by Miguel Pierce MD @ 03/02/2021 12:45:27 PM Dictated by: Miguel Pierce MD @ 03/02/2021 12:45:32 (Electronically Signed)
[2021-03-02] MEDS ORDERED: Ampicillin/Sulbactam Na 3 GM in Sodium Chloride 0.9% 100 ML IV ONE (12:55)
[2021-03-02 13:32] LABS: BLOOD UREA NITROGEN,BUN 15 mg/dL (7.0-18.0); CARBON DIOXIDE,CO2 31.4 mmol/L (21.0-32.0); CHLORIDE,CL 96 mmol/L (98-107); GLUCOSE RANDOM 93 mg/dL (74-106); POTASSIUM,K 4.1 mmol/L (3.5-5.1); SODIUM,NA 137 mmol/L (136-145)
--- NOTE | 2021-03-02 14:48 | EDM.PDOC ---
ED HPI GENERAL MEDICAL PROBLEM - General Chief Complaint: Respiratory Problem Stated Complaint: SOB Time Seen by Provider: 03/02/21 12:04 - History of Present Illness INITIAL COMMENTS - FREE TEXT/NARRATIVE: CHIEF COMPLAINT(S): Shortness of breath HISTORY OF PRESENT ILLNESS: This is a 60-year-old woman with a past medical history of COPD on home oxygen 1.5 L who comes to the emergency department with a chief complaint of shortness of breath. The patient states that for approximately 1 week now she has been experiencing increased shortness of breath. She states that she is experiencing chest pressure and back pressure lo cated in a bandlike distribution around her chest. She denies any pain. She denies any diaphoresis nausea or vomiting but states that she does feel short of breath and has had increased cough which is productive of whitish-greenish sputum. She denies any fevers, chills, recent travel, recent surgery or prior history of DVT or PE. She denies any history of CAD or CHF. REVIEW OF SYSTEMS: Constitutional: Denies fever, chills. Eyes: Denies eye pain Ears, Nose, Mouth, & Throat: Denies earache Cardiovascular: Positive for bandlike pressure around chest denies chest pain Respiratory: Positive for shortness of breath and productive cough Gastrointestinal: Denies Nausea, vomiting, diarrhea, hematochezia. Genitourinary: Denies hematuria Skin:Denies a rash MSK: Denies joint pain Neurological: Denies blurred vision Psychiatric: Denies depression PAST MEDICAL HISTORY: As per history of present illness and as reviewed below otherwise noncontributory. SURGICAL HISTORY: As per history of present illness and as reviewed below otherwise noncontributory. SOCIAL HISTORY: As per history of present illness and as reviewed below otherwise noncontributory. FAMILY HISTORY: As per history of present illness and as reviewed below otherwise noncontributory. EXAMINATION OF ORGAN SYSTEMS/BODY AREAS: Constitutional: Blood pressure is 137/68, heart rate 108, respiratory rate 25 with an oxygen saturation of 83% on room air. On 4 L nasal cannula patient saturating 95%. Temperature 37.1 General: Middle-aged woman who does not appear to be in acute distress. Psychiatric: Appropriate mood and affect. Eyes: No scleral icterus or conjunctival erythema ENMT: Moist mucous membranes. No pharyngeal erythema Cardiovascular: Tachycardic but regular. No gallops, murmurs, or rubs. Bilateral upper extremity pulses symmetric and intact. No peripheral edema. No JVD. Respiratory: Diminished breath sounds bilaterally. Patient is taking shallow breaths but is not tachypneic. Speaking in full sentences. Gastrointestinal: Soft, non-tender, non-distended. Normoactive bowel sounds Genitourinary: No suprapubic tenderness Musculoskeletal: Normal range of motion. Skin: No lesions or abrasions. Neurological: Alert, GCS 15 MEDICAL DECISION MAKING AND COURSE IN THE ED WITH INTERPRETATION/REVIEW OF DIAGNOSTIC STUDIES: This is a 60-year-old woman with a past medical history of COPD on 1.5 L who comes to the emergency department with 1 week of productive cough and shortness of breath who is hypoxic on room air and requiring more supplemental oxygenation than normal who is tachycardic and afebrile. At this time given history of COPD we will provide the patient with 1 DuoNeb treatment and reevaluate. The patient is speaking in full sentences and does not appear to be in any distress. We will hold off on steroid administration at this time until Covid swab is back. We will screen for Covid. Will obtain CBC, CMP, lactic acid, INR, influenza, magnesium, and troponin. We will hold off on blood cultures at this time until evaluation for viral cause is identified versus COPD exacerbation. EKG was obtained which do not reveal any acute signs of ischemia. Differential at this time does include pneumonia, Covid pneumonia, COPD exacerbation, ACS. The radiological images were viewed by myself along with reading the report from the radiologist. Chest x-ray reveals a consolidation of the right lung base present surrounding area of central lucency measuring 2.4 cm consistent with possible pulmonary abscess. Recommend CT. There is moderate pulmonary emphysema. After imaging we did send blood cultures, provided the patient with 1 L of lactated Ringer's bolus and we will start the patient on 3 g of ampicillin sulbactam. At this time the patient's blood pressure is normal we will reevaluate after lactic acid returns for additional fluid bolus administration. In addition we will obtain an angiogram of the chest to evaluate for pulmonary embolism and pulmonary abscess. Laboratory: CBC reveals a leukocytosis of 19.97 with neutrophilic predominance. INR is normal. CMP is unremarkable except for hypoalbumin 8 at 2.5. Troponin is negative. Lactic acid is 0.8. Covid is negative. Given the lactic acid is not elevated and patient is normotensive no additional fluid boluses will be administered. We will start the patient on maintenance fluids. On reevaluation skin was pink, warm and capillary refill was less than 2 seconds. The radiological images were viewed by myself along with reading the report from the radiologist. CT angiogram of the chest does not reveal any evidence of pulmonary embolism. There is evidence of right lower lung pneumonia. No evidence of abscess or cavitary lesions. After imaging I did discuss with patient that I like to admit her to the hospital. She was amenable to this plan. I contacted Dr. Woodall who accepted the patient for admission. DISPOSITION: Patient was admitted to the hospital in stable yet serious conditio n CONDITION: Serious PROCEDURES: Cardiac monitoring interpretation, pulse oximetry interpretation FINAL IMPRESSION(S)/DIAGNOSES: 1. Acute on chronic hypoxic respiratory failure secondary to community-acquired pneumonia 2. Acute sepsis secondary to community-acquired pneumonia Critical Care Procedure Note Authorized and performed by: Rudolph Spear M.D. Critical Care Time: 74 minutes Due to a high probability of clinically significant, life threatening deterioration, the patient required my highest level of preparedness to intervene emergently and I personally spent this critical care time directly and personally managing the patient. This critical care time included obtaining a history, examining the patient, pulse oximetry; ordering and review of studies; arranging urgent treatment with development of a management plan; evaluation of a patients reponse to treatment; frequent assessment; and discussions with other providers. This critical care time was performed to assess and manage the high probability of imminent, life threatening deterioration that could result in multiorgan failure. It was exclusive of separate billable procedures and treating other patients. Please see MDM section and rest of the note for further information on patient assessment and treatment. Please see MDM section and rest of the note for further information on patient assessment and treatment. Rudolph Spear M.D. shoulder Pain Score (Numeric/FACES): 9 - Related Data Allergies Allergy/AdvReac Type Severity Reaction Status Date / Time acetaminophen [From Percocet] Allergy Mild Hives Verified 03/02/21 12:14 oxycodone HCl [From Percocet] Allergy Airway Verified 03/02/21 12:14 Tightness sulfur dioxide Allergy Rash Verified 03/02/21 12:14 Home Meds: Home Meds Albuterol [Ventolin HFA] 2 puff INH Q6H PRN 10/25/19 [History] Albuterol/Ipratropium [DuoNeb 3.0-0.5 MG/3 ML] 3 ml NEB Q6H PRN 01/28/21 [History] Cholecalciferol (Vitamin D3) [Vitamin D3] 1,250 mcg PO MOFR@0900 01/28/21 [History] FLUoxetine HCl [Fluoxetine HCl] 20 mg PO DAILY 01/28/21 [History] Pantoprazole 40 mg PO DAILY 01/28/21 [History] Tiotropium [Spiriva HandiHaler] 18 mcg IH DAILY 01/28/21 [History] hydrOXYzine pamoate [Hydroxyzine Pamoate] 25 mg PO BID PRN 01/28/21 [History] predniSONE [Prednisone] 60 mg PO DAILY 01/28/21 [History] traMADol [Ultram] 50 mg PO DAILY PRN 01/28/21 [History] guaiFENesin [Mucus Relief] 400 mg PO Q4H PRN #20 tablet 01/30/21 [Rx] Budesonide/Formoterol [Symbicort 160-4.5 MCG] 2 puff INH BID 03/02/21 [History] Cholecalciferol (Vitamin D3) [Vitamin D3] 125 mcg PO DAILY 03/02/21 [History] Past Medical History - Past Health History Medical/Surgical History: Denies Medical/Surgical History HEENT History: Reports: None Cardiovascular History: Reports: None, Other (See Below) Other Cardiovascular History: 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 Respiratory History: Reports: Asthma, COPD, SOB, Other (See Below) Other Respiratory History: Bronchopneumonia Gastrointestinal History: Reports: Chronic Constipation Genitourinary History: Reports: Other (See Below) Other Genitourinary History: cyst to R kidney, history of hematuria [employer] History: Reports: Musculoskeletal History: Reports: Back Pain, Chronic, Fracture, Neck Pain, Chronic, Other (See Below) Other Musculoskeletal History: right hip pain, hx of fx right wrist Neurological History: Reports: Other (See Below) Other Neuro History: has ruptured disc in back Psychiatric History: Reports: None Endocrine/Metabolic History: Reports: Obesity/BMI 30+ 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 Pump Model and Eye 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: None Hematologic History: Reports: None Immunologic History: Reports: None Oncologic (Cancer) History: Reports: None Dermatologic History: Reports: None - Infectious Disease History Infectious Disease History: Reports: Chicken Pox - Past Surgical History Head Surgeries/Procedures: Reports: None HEENT Surgical History: Reports: None Cardiovascular Surgical History: Reports: None Respiratory Surgical History: Reports: None GI Surgical History: Reports: None Female Surgical History: Reports: Cystoscopy, Tubal Ligation Endocrine Surgical History: Reports: None Neurological Surgical History: Reports: None Musculoskeletal Surgical History: Reports: None Oncologic Surgical History: Reports: None Social & Family History - Family History Family Medical History: No Pertinent Family History Cardiac: Reports: CAD Neurological: Reports: CVA - Caffeine Use Caffeine Use: Reports: Coffee - Recreational Drug Use Recreational Drug Use: No ED ROS GENERAL - Review of Systems Review Of Systems: See Below ED EXAM, GENERAL - Physical Exam Exam: See Below Course - Vital Signs Last Recorded V/S: Last Vital Signs Temp 37.1 C 03/02/21 12:10 Pulse 99 03/02/21 16:04 Resp 25 H 03/02/21 12:10 BP 154/60 H 03/02/21 16:04 Pulse Ox 92 L 03/02/21 16:04 - Orders/Labs/Meds Orders: Active Orders 24 hr Category Date Time Status Cardiac Monitoring [RC] . DIRECTED Care 03/02/21 12:24 Active Pulse Oximetry [RC] ASDIRECTED Care 03/02/21 12:24 Active RT Aerosol Therapy [RC] ASDIRECTED Care 03/02/21 12:44 Active CULTURE BLOOD [BC] Stat Lab 03/02/21 12:51 Received CULTURE BLOOD [BC] Stat Lab 03/02/21 13:10 Results Lactated Ringers [Ringers, Lactated] 1,000 ml Med 03/02/21 12:45 Active IV ASDIRECTED Lactated Ringers [Ringers, Lactated] 1,000 ml Med 03/02/21 16:30 Active IV ASDIRECTED Blood Culture x2 Reflex Set [OM.PC] Stat Oth 03/02/21 12:52 Ordered Isolation [COMM] Routine Oth 03/02/21 12:44 Active Medication Orders Albuterol/Ipratropium (Albuterol/Ipratropium 3.0-0.5 Mg/3 Ml Neb Soln) 3 ml NEB Q6HRRT [facility] Last Admin: 10/13/21 18:07 Dose: 3 ml Documented by: CELESTE Azithromycin (Azithromycin 500 Mg Vial) 500 mg IV Q24H [facility] Benzonatate (Benzonatate 100 Mg Cap) 100 mg PO Q6H PRN PRN Reason: Cough Ceftriaxone Sodium (Ceftriaxone 1 Gm Vial) 1 gm IVPUSH Q24H [facility] Fluoxetine HCl (Fluoxetine 20 Mg Cap) 20 mg PO DAILY [facility] Hydroxyzine Pamoate (Hydroxyzine Pamoate 25 Mg Cap) 25 mg PO BID PRN PRN Reason: Anxiety Lactated Ringer's (Ringers, Lactated) 1,000 mls @ 999 mls/hr IV ASDIRECTED [facility] Last Admin: 03/02/21 13:15 Dose: 999 mls/hr Documented by: COLBY Lactated Ringer's (Ringers, Lactated) 1,000 mls @ 125 mls/hr IV ASDIRECTED [facility] Last Admin: 03/02/21 16:31 Dose: 125 mls/hr Documented by: JEFFREY Non-Formulary Medication (Cholecalciferol (Vitamin D3)) 125 mcg PO DAILY [facility] Budesonide/Formoterol [ Symbicort 160-4.5 Mcg] 2 each INH BID [facility] Prednisone (Prednisone 20 Mg Tab) 50 mg PO DAILY [facility] Last Admin: 03/02/21 18:12 Dose: Not Given Documented by: JEFFREY Tiotropium [place] (Tiotropium Inhaler 18 Mcg Inhalation Powder Cap Kit Of 5) 18 mcg INH DAILY [facility] Tramadol HCl (Tramadol 50 Mg Tab) 50 mg PO DAILY PRN PRN Reason: Pain Labs: Laboratory Tests 03/02/21 03/02/21 03/02/21 Range/Units 12:51 12:51 12:51 WBC 19.97 H (4.0-11.0) K/uL RBC 4.25 L (4.30-5.90) M/uL Hgb 13.2 (12.0-16.0) g/dL Hct 40.2 (36.0-46.0) % MCV 94.6 (80.0-98.0) fL MCH 31.1 (27.0-32.0) pg MCHC 32.8 (31.0-37.0) g/dL RDW Std Deviation 49.1 (28.0-62.0) fl RDW Coeff of [place]ta[place] 14 (11.0-15.0) % Plt Count 212 (150-400) K/uL MPV 9.30 (7.40-12.00) fL Neut % (Auto) 83.9 H (48.0-80.0) % Lymph % (Auto) 7.5 L (16.0-40.0) % [place] % (Auto) 8.5 (0.0-15.0) % Eos % (Auto) 0.0 (0.0-7.0) % Baso % (Auto) 0.1 (0.0-1.5) % Neut # (Auto) 16.8 H (1.4-5.7) K/uL Lymph # (Auto) 1.5 (0.6-2.4) K/uL [place] # (Auto) 1.7 H (0.0-0.8) K/uL Eos # (Auto) 0.0 (0.0-0.7) K/uL Baso # (Auto) 0.0 (0.0-0.1) K/uL Nucleated RBC % 0.0 /100WBC Nucleated RBCs # 0 K/uL INR 0.92 Sodium 137 (136-145) mmol/L Potassium 4.1 (3.5-5.1) mmol/L Chloride 96 L (98-107) mmol/L Carbon Dioxide 31.4 (21.0-32.0) mmol/L BUN 15 (7.0-18.0) mg/dL Creatinine 0.9 (0.6-1.0) mg/dL Est Cr Clr Drug Dosing 51.26 mL/min Estimated GFR (MDRD) > 60.0 ml/min Glucose 93 (74-106) mg/dL Lactic Acid (0.4-2.0) mmol/L Calcium 9.2 (8.5-10.1) mg/dL Magnesium 1.8 (1.8-2.4) mg/dL Total Bilirubin 0.7 (0.2-1.0) mg/dL AST 10 L (15-37) IU/L ALT 17 (14-63) IU/L Alkaline Phosphatase 82 (46-116) U/L Troponin I < 0.050 (0.000-0.056) ng/mL Total Protein 7.0 (6.4-8.2) g/dL Albumin 2.5 L (3.4-5.0) g/dL Globulin 4.5 H (2.6-4.0) g/dL Albumin/Globulin Ratio 0.6 L (0.9-1.6) SARS-CoV-2 RNA (AJ) (NEGATIVE) 03/02/21 03/02/21 Range/Units 13:10 13:25 WBC (4.0-11.0) K/uL RBC (4.30-5.90) M/uL Hgb (12.0-16.0) g/dL Hct (36.0-46.0) % MCV (80.0-98.0) fL MCH (27.0-32.0) pg MCHC (31.0-37.0) g/dL RDW Std Deviation (28.0-62.0) fl RDW Coeff of Mur[place] (11.0-15.0) % Plt Count (150-400) K/uL MPV (7.40-12.00) fL Neut % (Auto) (48.0-80.0) % Lymph % (Auto) (16.0-40.0) % [place] % (Auto) (0.0-15.0) % Eos % (Auto) (0.0-7.0) % Baso % (Auto) (0.0-1.5) % Neut # (Auto) (1.4-5.7) K/uL Lymph # (Auto) (0.6-2.4) K/uL [place] # (Auto) (0.0-0.8) K/uL Eos # (Auto) (0.0-0.7) K/uL Baso # (Auto) (0.0-0.1) K/uL Nucleated RBC % /100WBC Nucleated RBCs # K/uL INR Sodium (136-145) mmol/L Potassium (3.5-5.1) mmol/L Chloride (98-107) mmol/L Carbon Dioxide (21.0-32.0) mmol/L BUN (7.0-18.0) mg/dL Creatinine (0.6-1.0) mg/dL Est Cr Clr Drug Dosing mL/min Estimated GFR (MDRD) ml/min Glucose (74-106) mg/dL Lactic Acid 0.8 (0.4-2.0) mmol/L Calcium (8.5-10.1) mg/dL Magnesium (1.8-2.4) mg/dL Total Bilirubin (0.2-1.0) mg/dL AST (15-37) IU/L ALT (14-63) IU/L Alkaline Phosphatase (46-116) U/L Troponin I (0.000-0.056) ng/mL Total Protein (6.4-8.2) g/dL Albumin (3.4-5.0) g/dL Globulin (2.6-4.0) g/dL Albumin/Globulin Ratio (0.9-1.6) SARS-CoV-2 RNA (AJ) NEGATIVE (NEGATIVE) Meds: Medications Generic Name Dose Route Start Last Admin Trade Name Freq PRN Reason Stop Dose Admin Albuterol/Ipratropium 3 ml 03/02/21 18:00 03/02/21 18:07 Albuterol/Ipratropium 3.0-0.5 Mg/3 Ml Neb Soln NEB 3 ml Q6HRRT HERVE Administration Azithromycin 500 mg 03/02/21 17:45 Azithromycin 500 Mg Vial IV Q24H [facility] Benzonatate 100 mg 03/02/21 17:34 Benzonatate 100 Mg Cap PO Q6H PRN Cough Ceftriaxone Sodium 1 gm 03/02/21 19:00 Ceftriaxone 1 Gm Vial IVPUSH Q24H [facility] Fluoxetine HCl 20 mg 03/03/21 09:00 Fluoxetine 20 Mg Cap PO DAILY [facility] Hydroxyzine Pamoate 25 mg 03/02/21 17:29 Hydroxyzine Pamoate 25 Mg Cap PO BID PRN Anxiety Lactated Ringer's 1,000 mls @ 999 mls/hr 03/02/21 12:45 03/02/21 13:15 Ringers, Lactated IV 999 mls/hr ASDIRECTED HERVE Administration Lactated Ringer's 1,000 mls @ 125 mls/hr 03/02/21 16:30 03/02/21 16:31 Ringers, Lactated IV 125 mls/hr ASDIRECTED HERVE Administration Non-Formulary Medication 125 mcg 03/03/21 09:00 Cholecalciferol (Vitamin D3) PO DAILY [facility] Budesonide/ 2 each 03/02/21 21:00 Formoterol [ INH Symbicort 160-4.5 BID [facility]E Mcg] Prednisone 50 mg 03/02/21 17:30 03/02/21 18:12 Prednisone 20 Mg Tab PO Not Given DAILY [facility] Tiotropium Dazey 18 mcg 03/03/21 09:00 Tiotropium Inhaler 18 Mcg Inhalation Powder Cap Kit Of 5 INH DAILY [facility] Tramadol HCl 50 mg 03/02/21 17:29 Tramadol 50 Mg Tab PO DAILY PRN Pain Discontinued Medications Generic Name Dose Route Start Last Admin Trade Name [place] PRN Reason Stop Dose Admin Albuterol/Ipratropium 3 ml 03/02/21 12:44 03/02/21 13:26 Albuterol/Ipratropium 3.0-0.5 Mg/3 Ml Neb Soln NEB 03/02/21 12:45 3 ml ONETIME ONE Administration Albuterol/Ipratropium 3 ml 03/02/21 17:30 Albuterol/Ipratropium 3.0-0.5 Mg/3 Ml Neb Soln NEB Q6H [facility] Ampicillin Sodium/Sulbactam 100 mls @ 200 mls/hr 03/02/21 12:55 03/02/21 13:57 Sodium 3 gm/ Sodium Chloride IV 03/02/21 13:24 200 mls/hr ONETIME ONE Administration Ceftriaxone Sodium/Dextrose 1 50 mls @ 100 mls/hr 03/02/21 18:10 gm/ Premix IV 03/02/21 18:39 ONETIME ONE Iopamidol 100 ml 03/02/21 15:32 03/02/21 15:33 Iopamidol 755 Mg/Ml 500 Ml Multipack Bottle IVPUSH 03/02/21 15:33 100 ml ONETIME STA Administration Departure - Departure Time of Disposition: 17:26 Disposition: Admitted As Inpatient 64 Condition: Serious Clinical Impression: Pneumonia - Discharge Information Sepsis Event Note (ED) - Evaluation Sepsis Screening Result: Possible Sepsis Risk - Focused Exam Vital Signs: Vital Signs Temp Pulse Resp BP Pulse Ox 03/02/21 16:04 99 154/60 H 92 L 03/02/21 12:10 37.1 C 108 H 25 H 137/68 83 L - My Orders Last 24 Hours: My Active Orders 03/02/21 12:24 Cardiac Monitoring [RC] . DIRECTED Pulse Oximetry [RC] ASDIRECTED 03/02/21 12:44 RT Aerosol Therapy [RC] ASDIRECTED Isolation [COMM] Routine 03/02/21 12:45 Lactated Ringers [Ringers, Lactated] 1,000 ml IV ASDIRECTED 03/02/21 12:51 CULTURE BLOOD [BC] Stat 03/02/21 12:52 Blood Culture x2 Reflex Set [OM.PC] Stat 03/02/21 13:10 CULTURE BLOOD [BC] Stat 03/02/21 16:30 Lactated Ringers [Ringers, Lactated] 1,000 ml IV ASDIRECTED - Assessment/Plan Last 24 Hours: My Active Orders 03/02/21 12:24 Cardiac Monitoring [RC] . DIRECTED Pulse Oximetry [RC] ASDIRECTED 03/02/21 12:44 RT Aerosol Therapy [RC] ASDIRECTED Isolation [COMM] Routine 03/02/21 12:45 Lactated Ringers [Ringers, Lactated] 1,000 ml IV ASDIRECTED 03/02/21 12:51 CULTURE BLOOD [BC] Stat 03/02/21 12:52 Blood Culture x2 Reflex Set [OM.PC] Stat 03/02/21 13:10 CULTURE BLOOD [BC] Stat 03/02/21 16:30 Lactated Ringers [Ringers, Lactated] 1,000 ml IV ASDIRECTED
[2021-03-02] MEDS ORDERED: Iopamidol 755 MG/ML 500 ML Multipack Bottle IVPUSH STA (15:32)
--- NOTE | 2021-03-02 16:15 | CT ---
INDICATION: Shortness of breath and cough. Abnormality in the right lung base with central lucency on chest radiograph from today. COMPARISON: Chest radiograph from today and from 01/28/2021 TECHNIQUE: CT examination of the chest was performed with the uneventful intravenous administration of 100 cc of Isovue 370 while 1.0 and 1.5 mm thick axial sections were obtained through the pulmonary arteries. Please note that all CT scans at this facility use dose modulation, iterative reconstruction, and/or weight-based dosing when appropriate to reduce radiation dose to as low as reasonably achievable. FINDINGS: : There is no sign of pulmonary embolism, with normal enhancement and branching of the pulmonary arteries. There is a moderate-sized, dense area of consolidation in the anterior inferior right middle lobe at the lung base, corresponding to the infiltrate seen on today`s chest radiograph. This is not associated with central cavitation or a loculated pneumothorax. The findings are consistent with right middle lobe bacterial pneumonia without abscess formation. The appearance of lateral central lucency on the chest radiograph is the result of superimposition of the right middle lobe pneumonia with moderate right lateral inferior pleural thickening and subpleural scarring from previous inflammatory disease. This pleural thickening and scarring involves the lateral inferior right middle lobe and the lateral mid and inferior right lower lobe. Additional subpleural scarring and pleural thickening is seen in the medial aspect of the right lung base. There is mild scarring in the medial left upper lobe towards the apex from previous inflammatory disease. There is mild nodular subpleural scarring in the anterior-medial right upper lobe at the level of the kendy from previous inflammatory disease. There is no sign of mediastinal or hilar mass or adenopathy. The heart is normal in appearance for the patient`s age. There is age appropriate appearance of the thoracic aorta and ascending great vessels. There is no sign of supraclavicular or axillary mass or adenopathy. The visualized superior liver, spleen, pancreas, kidneys, and adrenals are normal in appearance. The osseous structures are normal in appearance for the patient`s age. IMPRESSION: No sign of pulmonary embolism. Moderate bacterial pneumonia involving the anterior-inferior right middle lobe. No sign of abscess or cavitary lesion. Mild pleural thickening and subpleural scarring along the lateral right middle and lower lobes inferiorly from previous inflammatory disease. Additional moderate pleural thickening and subpleural scarring in the posterior-medial right lower lobe inferiorly. Superimposition of the lateral lower chest infiltrates with the right lower lobe pneumonia pre since the appearance of a cavitary region on the previous chest radiograph. Please note that all CT scans at this facility use dose modulation, iterative reconstruction, and/or weight-based dosing when appropriate to reduce radiation dose to as low as reasonably achievable. Dictated by Miki Rodriguez MD @ 03/02/2021 4:13:57 PM (Electronically Signed)
[2021-03-02] MEDS: Lactated Ringers 1,000 ML IV SCH (16:31)
--- NOTE | 2021-03-02 17:02 | PCM.EKG ---
#1 Interpretation EKG Date: 03/02/21 Time: 11:58 Rhythm: NSR Rate (Beats/Min): 109 [place]: Normal P-Wave: Present QRS: Normal ST-T: Normal QT: Normal Comparison: No Change (08/22/16) EKG Interpretation Comments: Sinus Tachycardia
[2021-03-02] MEDS ORDERED: Albuterol/Ipratropium 3.0-0.5 MG/3 ML Neb Soln NEB SCH (17:30)
--- NOTE | 2021-03-02 17:41 | PCM.HP.2 ---
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 PAtient was noted to have a WBC of 19,[address] scan reporting a bacterial pneumonia of the right middle lobe. shoulder Pain Score (Numeric/FACES): 9 - Related Data Allergies/Adverse Reactions: Allergies Allergy/AdvReac Type Severity Reaction Status Date / Time acetaminophen [From Percocet] Allergy Mild Hives Verified 03/02/21 12:14 oxycodone HCl [From Percocet] Allergy Airway Verified 03/02/21 12:14 Tightness sulfur dioxide Allergy Rash Verified 03/02/21 12:14 Home Medications: Home Meds Albuterol [Ventolin HFA] 2 puff INH Q6H PRN 10/25/19 [History] Albuterol/Ipratropium [DuoNeb 3.0-0.5 MG/3 ML] 3 ml NEB Q6H PRN 01/28/21 [History] Cholecalciferol (Vitamin D3) [Vitamin D3] 1,250 mcg PO MOFR@0900 01/28/21 [History] FLUoxetine HCl [Fluoxetine HCl] 20 mg PO DAILY 01/28/21 [History] Pantoprazole 40 mg PO DAILY 01/28/21 [History] Tiotropium [Spiriva HandiHaler] 18 mcg IH DAILY 01/28/21 [History] hydrOXYzine pamoate [Hydroxyzine Pamoate] 25 mg PO BID PRN 01/28/21 [History] predniSONE [Prednisone] 60 mg PO DAILY 01/28/21 [History] traMADol [Ultram] 50 mg PO DAILY PRN 01/28/21 [History] guaiFENesin [Mucus Relief] 400 mg PO Q4H PRN #20 tablet 01/30/21 [Rx] Budesonide/Formoterol [Symbicort 160-4.5 MCG] 2 puff INH BID 03/02/21 [History] Cholecalciferol (Vitamin D3) [Vitamin D3] 125 mcg PO DAILY 03/02/21 [History] Past Medical History - Past Health History Medical/Surgical History: Denies Medical/Surgical History HEENT History: Reports: None Cardiovascular History: Reports: None, Other (See Below) Other Cardiovascular History: 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 Respiratory History: Reports: Asthma, COPD, SOB, Other (See Below) Other Respiratory History: Bronchopneumonia Gastrointestinal History: Reports: Chronic Constipation Genitourinary History: Reports: Other (See Below) Other Genitourinary History: cyst to R kidney, 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: Musculoskeletal History: Reports: Back Pain, Chronic, Fracture, Neck Pain, Chronic, Other (See Below) Other Musculoskeletal History: right hip pain, hx of fx right wrist Neurological History: Reports: Other (See Below) Other Neuro History: has ruptured disc in back Psychiatric History: Reports: None Endocrine/Metabolic History: Reports: Obesity/BMI 30+ Insulin Pump Model and Program Support Specialist: None Hematologic History: Reports: None Immunologic History: Reports: None Oncologic (Cancer) History: Reports: None Dermatologic History: Reports: None - Infectious Disease History Infectious Disease History: Reports: Chicken Pox - Past Surgical History Head Surgeries/Procedures: Reports: None HEENT Surgical History: Reports: None Cardiovascular Surgical History: Reports: None Respiratory Surgical History: Reports: None GI Surgical History: Reports: None Female Surgical History: Reports: Cystoscopy, Tubal Ligation Endocrine Surgical History: Reports: None Neurological Surgical History: Reports: None Musculoskeletal Surgical History: Reports: None Oncologic Surgical History: Reports: None Social & Family History - Family History Family Medical History: No Pertinent Family History Cardiac: Reports: CAD Neurological: Reports: CVA - Caffeine Use Caffeine Use: Reports: Coffee - Recreational Drug Use Recreational Drug Use: No H&P Review of Systems - Review of Systems: Review Of Systems: Comprehensive ROS is negative, except as noted in HPI. Exam - Exam Exam: See Below - Vital Signs Vital Signs: Last Vital Signs Temp 37.1 C 03/02/21 12:10 Pulse 99 03/02/21 16:04 Resp 25 H 03/02/21 12:10 BP 154/60 H 03/02/21 16:04 Pulse Ox 92 L 03/02/21 16:04 Weight: 53.07 kg - Exam General: Alert, Oriented HEENT: Mucosa Moist & [place] Neck: Supple Lungs: Normal Respiratory Effort, Rhonchi Cardiovascular: Regular Rate, Regular Rhythm GI/Abdominal Exam: Normal Bowel Sounds, Soft, Non-Tender Extremities: Non-Tender, No Pedal Edema Skin: Warm, Dry, Intact Neurological: Cranial Nerves Intact - Patient Data Lab Results Last 24 hrs: Laboratory Results - last 24 hr 03/02/21 03/02/21 03/02/21 Range/Units 12:51 12:51 12:51 WBC 19.97 H (4.0-11.0) K/uL RBC 4.25 L (4.30-5.90) M/uL Hgb 13.2 (12.0-16.0) g/dL Hct 40.2 (36.0-46.0) % MCV 94.6 (80.0-98.0) fL MCH 31.1 (27.0-32.0) pg MCHC 32.8 (31.0-37.0) g/dL RDW Std Deviation 49.1 (28.0-62.0) fl RDW Coeff of Murtaza 14 (11.0-15.0) % Plt Count 212 (150-400) K/uL MPV 9.30 (7.40-12.00) fL Neut % (Auto) 83.9 H (48.0-80.0) % Lymph % (Auto) 7.5 L (16.0-40.0) % Boyle % (Auto) 8.5 (0.0-15.0) % Eos % (Auto) 0.0 (0.0-7.0) % Baso % (Auto) 0.1 (0.0-1.5) % Neut # (Auto) 16.8 H (1.4-5.7) K/uL Lymph # (Auto) 1.5 (0.6-2.4) K/uL Boyle # (Auto) 1.7 H (0.0-0.8) K/uL Eos # (Auto) 0.0 (0.0-0.7) K/uL Baso # (Auto) 0.0 (0.0-0.1) K/uL Nucleated RBC % 0.0 /100WBC Nucleated RBCs # 0 K/uL INR 0.92 Sodium 137 (136-145) mmol/L Potassium 4.1 (3.5-5.1) mmol/L Chloride 96 L (98-107) mmol/L Carbon Dioxide 31.4 (21.0-32.0) mmol/L BUN 15 (7.0-18.0) mg/dL Creatinine 0.9 (0.6-1.0) mg/dL Est Cr Clr Drug Dosing 51.26 mL/min Estimated GFR (MDRD) > 60.0 ml/min Glucose 93 (74-106) mg/dL Lactic Acid (0.4-2.0) mmol/L Calcium 9.2 (8.5-10.1) mg/dL Magnesium 1.8 (1.8-2.4) mg/dL Total Bilirubin 0.7 (0.2-1.0) mg/dL AST 10 L (15-37) IU/L ALT 17 (14-63) IU/L Alkaline Phosphatase 82 (46-116) U/L Troponin I < 0.050 (0.000-0.056) ng/mL Total Protein 7.0 (6.4-8.2) g/dL Albumin 2.5 L (3.4-5.0) g/dL Globulin 4.5 H (2.6-4.0) g/dL Albumin/Globulin Ratio 0.6 L (0.9-1.6) SARS-CoV-2 RNA (AJ) (NEGATIVE) 03/02/21 03/02/21 Range/Units 13:10 13:25 WBC (4.0-11.0) K/uL RBC (4.30-5.90) M/uL Hgb (12.0-16.0) g/dL Hct (36.0-46.0) % MCV (80.0-98.0) fL MCH (27.0-32.0) pg MCHC (31.0-37.0) g/dL RDW Std Deviation (28.0-62.0) fl RDW Coeff of Murtaza (11.0-15.0) % Plt Count (150-400) K/uL MPV (7.40-12.00) fL Neut % (Auto) (48.0-80.0) % Lymph % (Auto) (16.0-40.0) % Boyle % (Auto) (0.0-15.0) % Eos % (Auto) (0.0-7.0) % Baso % (Auto) (0.0-1.5) % Neut # (Auto) (1.4-5.7) K/uL Lymph # (Auto) (0.6-2.4) K/uL Boyle # (Auto) (0.0-0.8) K/uL Eos # (Auto) (0.0-0.7) K/uL Baso # (Auto) (0.0-0.1) K/uL Nucleated RBC % /100WBC Nucleated RBCs # K/uL INR Sodium (136-145) mmol/L Potassium (3.5-5.1) mmol/L Chloride (98-107) mmol/L Carbon Dioxide (21.0-32.0) mmol/L BUN (7.0-18.0) mg/dL Creatinine (0.6-1.0) mg/dL Est Cr Clr Drug Dosing mL/min Estimated GFR (MDRD) ml/min Glucose (74-106) mg/dL Lactic Acid 0.8 (0.4-2.0) mmol/L Calcium (8.5-10.1) mg/dL Magnesium (1.8-2.4) mg/dL Total Bilirubin (0.2-1.0) mg/dL AST (15-37) IU/L ALT (14-63) IU/L Alkaline Phosphatase (46-116) U/L Troponin I (0.000-0.056) ng/mL Total Protein (6.4-8.2) g/dL Albumin (3.4-5.0) g/dL Globulin (2.6-4.0) g/dL Albumin/Globulin Ratio (0.9-1.6) SARS-CoV-2 RNA (AJ) NEGATIVE (NEGATIVE) Result Diagrams: 03/02/21 12:51 03/02/21 12:51 [place] Results Last 24 hrs: Microbiology 03/02/21 13:26 Influenza Type A Antigen Screen - Final Nasopharyngeal Swab NEGATIVE INFLUENZA A VIRUS AG REFERENCE RANGE: NEGATIVE Influenza Type B Antigen Screen - Final NEGATIVE INFLUENZA B VIRUS AG REFERENCE RANGE: NEGATIVE 03/02/21 13:10 Anaerobic Blood Culture - Final Blood - Venous - Lab Draw Sepsis Event Note - Evaluation Sepsis Screening Result: Possible Sepsis Risk - Focused Exam Vital Signs: Vital Signs Temp Pulse Resp BP Pulse Ox 03/02/21 16:04 99 154/60 H 92 L 03/02/21 12:10 37.1 C 108 H 25 H 137/68 83 L - Problem List (1) Pneumonia SNOMED Code(s): 537785021 ICD Code: J18.9 - PNEUMONIA, UNSPECIFIED ORGANISM Status: Acute Current Visit: Yes (2) COPD exacerbation SNOMED Code(s): 565488846, 357185991 ICD Code: J44.1 - CHRONIC OBSTRUCTIVE PULMONARY DISEASE W (ACUTE) EXACERBATION Status: Acute Current Visit: No (3) Respiratory failure with hypoxia SNOMED Code(s): 10601684600958447 ICD Code: J96.91 - RESPIRATORY FAILURE, UNSPECIFIED WITH HYPOXIA Status: Acute Current Visit: Yes Problem List Initiated/Reviewed/Updated: Yes Orders Last 24hrs: Active Orders 24 hr Category Date Time Status Admission Status [Patient Status] [ADT] Stat ADT 03/02/21 17:26 Active Antiembolic Devices [RC] PER UNIT ROUTINE Care 03/02/21 17:36 Ordered Cardiac Monitoring [RC] . DIRECTED Care 03/02/21 12:24 Active Oxygen Therapy [RC] PRN Care 03/02/21 17:35 Ordered Pulse Oximetry [RC] ASDIRECTED Care 03/02/21 12:24 Active RT Aerosol Therapy [RC] ASDIRECTED Care 03/02/21 12:44 Active RT Aerosol Therapy [RC] ASDIRECTED Care 03/02/21 17:31 Ordered RT Post Treatment Assessment [RC] Click to Edit Care 03/02/21 17:31 Ordered RT Pre-Treatment Assessment [RC] Click to Edit Care 03/02/21 17:31 Ordered Up ad [place] [RC] ASDIRECTED Care 03/02/21 17:35 Ordered VTE/DVT Education [RC] PER UNIT ROUTINE Care 03/02/21 17:35 Ordered Vital Signs [RC] Q4H Care 03/02/21 17:35 Ordered Regular Diet [DIET] Diet 03/02/21 Breakfast Ordered BASIC METABOLIC PANEL,BMP [CHEM] AM Lab 03/03/21 05:11 Ordered BASIC METABOLIC PANEL,BMP [CHEM] AM Lab 03/04/21 05:11 Ordered BASIC METABOLIC PANEL,BMP [CHEM] AM Lab 03/05/21 05:11 Ordered CBC WITH AUTO DIFF [HEME] AM Lab 03/03/21 05:11 Ordered CBC WITH AUTO DIFF [HEME] AM Lab 03/04/21 05:11 Ordered CBC WITH AUTO DIFF [HEME] AM Lab 03/05/21 05:11 Ordered CULTURE BLOOD [BC] Stat Lab 03/02/21 12:51 Received CULTURE BLOOD [BC] Stat Lab 03/02/21 13:10 Results Albuterol/Ipratropium [DuoNeb 3.0-0.5 MG/3 ML] Med 03/02/21 18:00 Active 3 ml NEB Q6HRRT Azithromycin [Zithromax] Med 03/02/21 17:45 Ordered 500 mg IV Q24H Benzonatate [Tessalon Perles] Med 03/02/21 17:34 Ordered 100 mg PO Q6H PRN Budesonide/Formoterol [Symbicort 160-4.5 MCG] Med 03/02/21 21:00 Ordered 2 puff INH BID Cholecalciferol (Vitamin D3) Med 03/03/21 09:00 Ordered 125 mcg PO DAILY FLUoxetine [PROzac] Med 03/03/21 09:00 Ordered 20 mg PO DAILY Lactated Ringers [Ringers, Lactated] 1,000 ml Med 03/02/21 12:45 Active IV ASDIRECTED Lactated Ringers [Ringers, Lactated] 1,000 ml Med 03/02/21 16:30 Active IV ASDIRECTED Tiotropium [Spiriva HandiHaler] Med 03/03/21 09:00 Ordered 18 mcg INH DAILY cefTRIAXone [Rocephin] Med 03/02/21 19:00 Ordered 1 gm IVPUSH Q24H hydrOXYzine pamoate [Vistaril] Med 03/02/21 17:29 Ordered 25 mg PO BID PRN predniSONE Med 03/02/21 17:30 Ordered 50 mg PO DAILY traMADol [Ultram] Med 03/02/21 17:29 Ordered 50 mg PO DAILY PRN Blood Culture x2 Reflex Set [OM.PC] Stat Oth 03/02/21 12:52 Ordered Isolation [COMM] Routine Oth 03/02/21 12:44 Active Sequential Compression Device [OM.PC] Per Unit Routine Oth 03/02/21 17:35 Ordered Resuscitation Status Routine Resus Stat 03/02/21 17:35 Ordered Medication Orders Albuterol/Ipratropium (Albuterol/Ipratropium 3.0-0.5 Mg/3 Ml Neb Soln) 3 ml NEB Q6HRRT [facility] Azithromycin (Azithromycin 500 Mg Vial) 500 mg IV Q24H [facility] Benzonatate (Benzonatate 100 Mg Cap) 100 mg PO Q6H PRN PRN Reason: Cough Ceftriaxone Sodium (Ceftriaxone 1 Gm Vial) 1 gm IVPUSH Q24H [facility] Fluoxetine HCl (Fluoxetine 20 Mg Cap) 20 mg PO DAILY [facility] Hydroxyzine Pamoate (Hydroxyzine Pamoate 25 Mg Cap) 25 mg PO BID PRN PRN Reason: Anxiety Lactated Ringer's (Ringers, Lactated) 1,000 mls @ 999 mls/hr IV ASDIRECTED [facility] Last Admin: 03/02/21 13:15 Dose: 999 mls/hr Documented by: COLBY Lactated Ringer's (Ringers, Lactated) 1,000 mls @ 125 mls/hr IV ASDIRECTED [facility] Last Admin: 03/02/21 16:31 Dose: 125 mls/hr Documented by: JEFFREY Non-Formulary Medication (Cholecalciferol (Vitamin D3)) 125 mcg PO DAILY [facility] Budesonide/Formoterol [ Symbicort 160-4.5 Mcg] 2 each INH BID [facility] Prednisone (Prednisone 20 Mg Tab) 50 mg PO DAILY [facility] Tiotropium Plessis (Tiotropium Inhaler 18 Mcg Inhalation Powder Cap Kit Of 5) 18 mcg INH DAILY [facility] Tramadol HCl (Tramadol 50 Mg Tab) 50 mg PO DAILY PRN PRN Reason: Pain Assessment/Plan Comment:: 60 yo female admitted for community acquired pneumonia Acute hypoxia: on 4 L NC which is up from baseline of 1-2 liters Pneumonia: treating puneet romero and azithromycin Acquired hemophilia: continue prednisone. COPD: duonebs prn
[2021-03-02] MEDS ORDERED: Azithromycin 500 MG Vial IV SCH (17:45)
[2021-03-02] MEDS: Albuterol/Ipratropium 3.0-0.5 MG/3 ML Neb Soln NEB SCH ×2 (18:07→23:29)
[2021-03-02] MEDS: predniSONE 20 MG Tab PO SCH ×2 (18:08→18:12)
[2021-03-02] MEDS ORDERED: cefTRIAXone 1 GM in Premix Bag 1 BAG IV ONE (18:10)
[2021-03-02] MEDS ORDERED: cefTRIAXone 1 GM Vial IVPUSH SCH (19:00)
[2021-03-02] MEDS: Azithromycin 500 MG in Sodium Chloride 0.9% 250 ML IV SCH (20:15)
[2021-03-02] MEDS: cefTRIAXone 1 GM in Premix Bag 1 BAG IV SCH (21:42)
[2021-03-02] MEDS ORDERED: Azithromycin 500 MG Vial ONE (22:32)
[2021-03-02] MEDS: Budesonide/Formoterol [Symbicort 160-4.5 Mcg] INH SCH (23:29)
[2021-03-03] MEDS: hydrOXYzine Pamoate 25 MG Cap PO PRN ×2 (00:10→19:52)
[2021-03-03] MEDS: Lactated Ringers 1,000 ML IV SCH ×2 (04:22→14:39)
[2021-03-03] MEDS: Albuterol/Ipratropium 3.0-0.5 MG/3 ML Neb Soln NEB SCH ×3 (06:41→17:57)
[2021-03-03 07:51] LABS: BLOOD UREA NITROGEN,BUN 11 mg/dL (7.0-18.0); CARBON DIOXIDE,CO2 29.3 mmol/L (21.0-32.0); CHLORIDE,CL 103 mmol/L (98-107); GLUCOSE RANDOM 83 mg/dL (74-106); POTASSIUM,K 4.4 mmol/L (3.5-5.1); SODIUM,NA 142 mmol/L (136-145)
[2021-03-03] MEDS: Cholecalciferol (Vitamin D3) 25 MCG Tab PO SCH (08:37)
[2021-03-03] MEDS: FLUoxetine 20 MG Cap PO SCH (08:38)
[2021-03-03] MEDS: predniSONE 20 MG Tab PO SCH (08:38)
[2021-03-03] MEDS: Azithromycin 500 MG in Sodium Chloride 0.9% 250 ML IV SCH (08:39)
[2021-03-03] MEDS: Budesonide/Formoterol [Symbicort 160-4.5 Mcg] INH SCH ×2 (09:14→23:59)
[2021-03-03] MEDS: Tiotropium Inhaler 18 MCG Inhalation Powder Cap Kit of 5 INH SCH (09:59)
[2021-03-03] MEDS: Pantoprazole 40 MG Tab.CR PO SCH (10:00)
--- NOTE | 2021-03-03 10:37 | PCM.PN ---
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 Upon interview with the patient today she continues to have productive cough producing yellow sputum, shortness of breath which is causing p ain in her upper back bilaterally, chills, and body aches in her ribs. She denies fever, chest pain, palpitations, nausea, vomiting, diarrhea, and any issues with urination. The patient is currently on 5 L of oxygen and saturating at 94%. Her white blood cells are elevated at 19.97. She has no other concerns at this time. - Review of Systems General: Reports: Fatigue, Chills. Denies: Fever HEENT: Denies: Headaches, Sore Throat Pulmonary: Reports: Shortness of Breath, Cough, Sputum Cardiovascular: Denies: Chest Pain, Palpitations Gastrointestinal: Denies: Abdominal Pain, Constipation, Diarrhea, Nausea, Vomiting Genitourinary: Denies: Dysuria Musculoskeletal: Reports: Back Pain - Patient Data Vitals - Most Recent: Last Vital Signs Temp 97.5 F 03/03/21 07:00 Pulse 88 03/03/21 07:00 Resp 18 03/03/21 07:00 BP 118/58 L 03/03/21 07:00 Pulse Ox 88 L 03/03/21 07:00 Weight - Most Recent: 117 lb 14.4 oz I&O - Last 24 Hours: Intake & Output 03/02/21 03/03/21 03/03/21 22:59 06:59 14:59 Intake Total 200 Balance 200 Lab Results Last 24 Hours: Laboratory Results - last 24 hr 03/02/21 03/02/21 03/02/21 Range/Units 12:51 12:51 12:51 WBC 19.97 H (4.0-11.0) K/uL RBC 4.25 L (4.30-5.90) M/uL Hgb 13.2 (12.0-16.0) g/dL Hct 40.2 (36.0-46.0) % MCV 94.6 (80.0-98.0) fL MCH 31.1 (27.0-32.0) pg MCHC 32.8 (31.0-37.0) g/dL RDW Std Deviation 49.1 (28.0-62.0) fl RDW Coeff of Murtaza 14 (11.0-15.0) % Plt Count 212 (150-400) K/uL MPV 9.30 (7.40-12.00) fL Neut % (Auto) 83.9 H (48.0-80.0) % Lymph % (Auto) 7.5 L (16.0-40.0) % [place] % (Auto) 8.5 (0.0-15.0) % Eos % (Auto) 0.0 (0.0-7.0) % Baso % (Auto) 0.1 (0.0-1.5) % Neut # (Auto) 16.8 H (1.4-5.7) K/uL Lymph # (Auto) 1.5 (0.6-2.4) K/uL Montgomery # (Auto) 1.7 H (0.0-0.8) K/uL Eos # (Auto) 0.0 (0.0-0.7) K/uL Baso # (Auto) 0.0 (0.0-0.1) K/uL Nucleated RBC % 0.0 /100WBC Nucleated RBCs # 0 K/uL INR 0.92 Sodium 137 (136-145) mmol/L Potassium 4.1 (3.5-5.1) mmol/L Chloride 96 L (98-107) mmol/L Carbon Dioxide 31.4 (21.0-32.0) mmol/L BUN 15 (7.0-18.0) mg/dL Creatinine 0.9 (0.6-1.0) mg/dL Est Cr Clr Drug Dosing 51.26 mL/min Estimated GFR (MDRD) > 60.0 ml/min Glucose 93 (74-106) mg/dL Lactic Acid (0.4-2.0) mmol/L Calcium 9.2 (8.5-10.1) mg/dL Magnesium 1.8 (1.8-2.4) mg/dL Total Bilirubin 0.7 (0.2-1.0) mg/dL AST 10 L (15-37) IU/L ALT 17 (14-63) IU/L Alkaline Phosphatase 82 (46-116) U/L Troponin I < 0.050 (0.000-0.056) ng/mL Total Protein 7.0 (6.4-8.2) g/dL Albumin 2.5 L (3.4-5.0) g/dL Globulin 4.5 H (2.6-4.0) g/dL Albumin/Globulin Ratio 0.6 L (0.9-1.6) SARS-CoV-2 RNA (AJ) (NEGATIVE) 03/02/21 03/02/21 03/03/21 Range/Units 13:10 13:25 06:00 WBC 11.63 H (4.0-11.0) K/uL RBC 3.46 L (4.30-5.90) M/uL Hgb 10.6 L (12.0-16.0) g/dL Hct 32.6 L (36.0-46.0) % MCV 94.2 (80.0-98.0) fL MCH 30.6 (27.0-32.0) pg MCHC 32.5 (31.0-37.0) g/dL RDW Std Deviation 48.9 (28.0-62.0) fl RDW Coeff of Murtaza 14 (11.0-15.0) % Plt Count 213 (150-400) K/uL MPV 9.30 (7.40-12.00) fL Neut % (Auto) 88.2 H (48.0-80.0) % Lymph % (Auto) 6.8 L (16.0-40.0) % Montgomery % (Auto) 5.0 (0.0-15.0) % Eos % (Auto) 0.0 (0.0-7.0) % Baso % (Auto) 0.0 (0.0-1.5) % Neut # (Auto) 10.3 H (1.4-5.7) K/uL Lymph # (Auto) 0.8 (0.6-2.4) K/uL [place] # (Auto) 0.6 (0.0-0.8) K/uL Eos # (Auto) 0.0 (0.0-0.7) K/uL Baso # (Auto) 0.0 (0.0-0.1) K/uL Nucleated RBC % 0.0 /100WBC Nucleated RBCs # 0 K/uL INR Sodium (136-145) mmol/L Potassium (3.5-5.1) mmol/L Chloride (98-107) mmol/L Carbon Dioxide (21.0-32.0) mmol/L BUN (7.0-18.0) mg/dL Creatinine (0.6-1.0) mg/dL Est Cr Clr Drug Dosing mL/min Estimated GFR (MDRD) ml/min Glucose (74-106) mg/dL Lactic Acid 0.8 (0.4-2.0) mmol/L Calcium (8.5-10.1) mg/dL Magnesium (1.8-2.4) mg/dL Total Bilirubin (0.2-1.0) mg/dL AST (15-37) IU/L ALT (14-63) IU/L Alkaline Phosphatase (46-116) U/L Troponin I (0.000-0.056) ng/mL Total Protein (6.4-8.2) g/dL Albumin (3.4-5.0) g/dL Globulin (2.6-4.0) g/dL Albumin/Globulin Ratio (0.9-1.6) SARS-CoV-2 RNA (AJ) NEGATIVE (NEGATIVE) 03/03/21 Range/Units 06:00 WBC (4.0-11.0) K/uL RBC (4.30-5.90) M/uL Hgb (12.0-16.0) g/dL Hct (36.0-46.0) % MCV (80.0-98.0) fL MCH (27.0-32.0) pg MCHC (31.0-37.0) g/dL RDW Std Deviation (28.0-62.0) fl RDW Coeff of Murtaza (11.0-15.0) % Plt Count (150-400) K/uL MPV (7.40-12.00) fL Neut % (Auto) (48.0-80.0) % Lymph % (Auto) (16.0-40.0) % Montgomery % (Auto) (0.0-15.0) % Eos % (Auto) (0.0-7.0) % Baso % (Auto) (0.0-1.5) % Neut # (Auto) (1.4-5.7) K/uL Lymph # (Auto) (0.6-2.4) K/uL [place] # (Auto) (0.0-0.8) K/uL Eos # (Auto) (0.0-0.7) K/uL Baso # (Auto) (0.0-0.1) K/uL Nucleated RBC % /100WBC Nucleated RBCs # K/uL INR Sodium 142 (136-145) mmol/L Potassium 4.4 (3.5-5.1) mmol/L Chloride 103 (98-107) mmol/L Carbon Dioxide 29.3 (21.0-32.0) mmol/L BUN 11 (7.0-18.0) mg/dL Creatinine 0.7 (0.6-1.0) mg/dL Est Cr Clr Drug Dosing 65.90 mL/min Estimated GFR (MDRD) > 60.0 ml/min Glucose 83 (74-106) mg/dL Lactic Acid (0.4-2.0) mmol/L Calcium 8.3 L (8.5-10.1) mg/dL Magnesium (1.8-2.4) mg/dL Total Bilirubin (0.2-1.0) mg/dL AST (15-37) IU/L ALT (14-63) IU/L Alkaline Phosphatase (46-116) U/L Troponin I (0.000-0.056) ng/mL Total Protein (6.4-8.2) g/dL Albumin (3.4-5.0) g/dL Globulin (2.6-4.0) g/dL Albumin/Globulin Ratio (0.9-1.6) SARS-CoV-2 RNA (AJ) (NEGATIVE) [place] Results Last 24 Hours: Microbiology 03/02/21 13:26 Influenza Type A Antigen Screen - Final Nasopharyngeal Swab NEGATIVE INFLUENZA A VIRUS AG REFERENCE RANGE: NEGATIVE Influenza Type B Antigen Screen - Final NEGATIVE INFLUENZA B VIRUS AG REFERENCE RANGE: NEGATIVE 03/02/21 13:10 Anaerobic Blood Culture - Final Blood - Venous - Lab Draw Med Orders - Current: Current Medications Albuterol/Ipratropium (Albuterol/Ipratropium 3.0-0.5 Mg/3 Ml Neb Soln) 3 ml NEB Q6HRRT [facility] Last Admin: 03/03/21 06:41 Dose: 3 ml Documented by: Benzonatate (Benzonatate 100 Mg Cap) 100 mg PO Q6H PRN PRN Reason: Cough Cholecalciferol (Cholecalciferol (Vitamin D3) 25 Mcg Tab) 125 mcg PO DAILY [facility] Last Admin: 03/03/21 08:37 Dose: 125 mcg Documented by: Fluoxetine HCl (Fluoxetine 20 Mg Cap) 20 mg PO DAILY [facility] Last Admin: 03/03/21 08:38 Dose: 20 mg Documented by: Hydroxyzine Pamoate (Hydroxyzine Pamoate 25 Mg Cap) 25 mg PO BID PRN PRN Reason: Anxiety Last Admin: 03/03/21 00:10 Dose: 25 mg Documented by: Lactated Ringer's (Ringers, Lactated) 1,000 mls @ 999 mls/hr IV ASDIRECTED [facility] Last Admin: 03/02/21 13:15 Dose: 999 mls/hr Documented by: Lactated Ringer's (Ringers, Lactated) 1,000 mls @ 125 mls/hr IV ASDIRECTED [facility] Last Admin: 03/03/21 04:22 Dose: 125 mls/hr Documented by: Azithromycin 500 mg/ Sodium (Chloride) 250 mls @ 250 mls/hr IV DAILY [facility] Last Admin: 03/03/21 08:39 Dose: 250 mls/hr Documented by: Ceftriaxone Sodium/Dextrose 1 (gm/ Premix) 50 mls @ 100 mls/hr IV Q24H [facility] Last Admin: 03/02/21 21:42 Dose: 100 mls/hr Documented by: Melatonin (Melatonin 3 Mg Tab) 6 mg PO BEDTIME PRN PRN Reason: Insomnia Pantoprazole Sodium (Pantoprazole 40 Mg Tab.Cr) 40 mg PO DAILY [facility] Last Admin: 03/03/21 10:00 Dose: 40 mg Documented by: Budesonide/Formoterol [ Symbicort 160-4.5 Mcg] 2 each INH BID [facility] Last Admin: 03/03/21 09:14 Dose: Not Given Documented by: Prednisone (Prednisone 20 Mg Tab) 50 mg PO DAILY [facility] Last Admin: 03/03/21 08:38 Dose: 50 mg Documented by: Tiotropium [place] (Tiotropium Inhaler 18 Mcg Inhalation Powder Cap Kit Of 5) 18 mcg INH DAILY [facility] Last Admin: 03/03/21 09:59 Dose: 1 cap Documented by: Tramadol HCl (Tramadol 50 Mg Tab) 50 mg PO DAILY PRN PRN Reason: Pain Discontinued Medications Albuterol/Ipratropium (Albuterol/Ipratropium 3.0-0.5 Mg/3 Ml Neb Soln) 3 ml NEB ONETIME ONE Stop: 03/02/21 12:45 Last Admin: 03/02/21 13:26 Dose: 3 ml Documented by: Albuterol/Ipratropium (Albuterol/Ipratropium 3.0-0.5 Mg/3 Ml Neb Soln) 3 ml NEB Q6H [facility] Last Admin: 03/03/21 05:08 Dose: Not Given Documented by: Azithromycin (Azithromycin 500 Mg Vial) 500 mg IV Q24H [facility] Last Admin: 03/03/21 05:09 Dose: Not Given Documented by: Azithromycin (Azithromycin 500 Mg Vial) Confirm Administered Dose 500 mg .ROUTE .STK-MED ONE Stop: 03/02/21 22:33 Last Admin: 03/02/21 23:28 Dose: Not Given Documented by: Ceftriaxone Sodium (Ceftriaxone 1 Gm Vial) 1 gm IVPUSH Q24H [facility] Ampicillin Sodium/Sulbactam (Sodium 3 gm/ Sodium Chloride) 100 mls @ 200 mls/hr IV ONETIME ONE Stop: 03/02/21 13:24 Last Admin: 03/02/21 13:57 Dose: 200 mls/hr Documented by: Ceftriaxone Sodium/Dextrose 1 (gm/ Premix) 50 mls @ 100 mls/hr IV ONETIME ONE Stop: 03/02/21 18:39 Last Admin: 03/03/21 05:10 Dose: Not Given Documented by: Iopamidol (Iopamidol 755 Mg/Ml 500 Ml Multipack Bottle) 100 ml IVPUSH ONETIME STA Stop: 03/02/21 15:33 Last Admin: 03/02/21 15:33 Dose: 100 ml Documented by: - Exam General: Alert, Oriented, Cooperative, Lethargic HEENT: Other (Dry mucous membranes) Neck: Trachea Midline Lungs: Rhonchi, Other (Increased respiratory effort) Cardiovascular: Regular Rate, Regular Rhythm, No Murmurs GI/Abdominal Exam: Normal Bowel Sounds, Soft, Non-Tender, No Organomegaly Extremities: No Pedal Edema - Patient Data Lab Results Last 24 hrs: Laboratory Results - last 24 hr 03/02/21 03/02/21 03/02/21 Range/Units 12:51 12:51 12:51 WBC 19.97 H (4.0-11.0) K/uL RBC 4.25 L (4.30-5.90) M/uL Hgb 13.2 (12.0-16.0) g/dL Hct 40.2 (36.0-46.0) % MCV 94.6 (80.0-98.0) fL MCH 31.1 (27.0-32.0) pg MCHC 32.8 (31.0-37.0) g/dL RDW Std Deviation 49.1 (28.0-62.0) fl RDW Coeff of Murtaza 14 (11.0-15.0) % Plt Count 212 (150-400) K/uL MPV 9.30 (7.40-12.00) fL Neut % (Auto) 83.9 H (48.0-80.0) % Lymph % (Auto) 7.5 L (16.0-40.0) % [place] % (Auto) 8.5 (0.0-15.0) % Eos % (Auto) 0.0 (0.0-7.0) % Baso % (Auto) 0.1 (0.0-1.5) % Neut # (Auto) 16.8 H (1.4-5.7) K/uL Lymph # (Auto) 1.5 (0.6-2.4) K/uL [place] # (Auto) 1.7 H (0.0-0.8) K/uL Eos # (Auto) 0.0 (0.0-0.7) K/uL Baso # (Auto) 0.0 (0.0-0.1) K/uL Nucleated RBC % 0.0 /100WBC Nucleated RBCs # 0 K/uL INR 0.92 Sodium 137 (136-145) mmol/L Potassium 4.1 (3.5-5.1) mmol/L Chloride 96 L (98-107) mmol/L Carbon Dioxide 31.4 (21.0-32.0) mmol/L BUN 15 (7.0-18.0) mg/dL Creatinine 0.9 (0.6-1.0) mg/dL Est Cr Clr Drug Dosing 51.26 mL/min Estimated GFR (MDRD) > 60.0 ml/min Glucose 93 (74-106) mg/dL Lactic Acid (0.4-2.0) mmol/L Calcium 9.2 (8.5-10.1) mg/dL Magnesium 1.8 (1.8-2.4) mg/dL Total Bilirubin 0.7 (0.2-1.0) mg/dL AST 10 L (15-37) IU/L ALT 17 (14-63) IU/L Alkaline Phosphatase 82 (46-116) U/L Troponin I < 0.050 (0.000-0.056) ng/mL Total Protein 7.0 (6.4-8.2) g/dL Albumin 2.5 L (3.4-5.0) g/dL Globulin 4.5 H (2.6-4.0) g/dL Albumin/Globulin Ratio 0.6 L (0.9-1.6) SARS-CoV-2 RNA (AJ) (NEGATIVE) 03/02/21 03/02/21 03/03/21 Range/Units 13:10 13:25 06:00 WBC 11.63 H (4.0-11.0) K/uL RBC 3.46 L (4.30-5.90) M/uL Hgb 10.6 L (12.0-16.0) g/dL Hct 32.6 L (36.0-46.0) % MCV 94.2 (80.0-98.0) fL MCH 30.6 (27.0-32.0) pg MCHC 32.5 (31.0-37.0) g/dL RDW Std Deviation 48.9 (28.0-62.0) fl RDW Coeff of Murtaza 14 (11.0-15.0) % Plt Count 213 (150-400) K/uL MPV 9.30 (7.40-12.00) fL Neut % (Auto) 88.2 H (48.0-80.0) % Lymph % (Auto) 6.8 L (16.0-40.0) % [place] % (Auto) 5.0 (0.0-15.0) % Eos % (Auto) 0.0 (0.0-7.0) % Baso % (Auto) 0.0 (0.0-1.5) % Neut # (Auto) 10.3 H (1.4-5.7) K/uL Lymph # (Auto) 0.8 (0.6-2.4) K/uL [place] # (Auto) 0.6 (0.0-0.8) K/uL Eos # (Auto) 0.0 (0.0-0.7) K/uL Baso # (Auto) 0.0 (0.0-0.1) K/uL Nucleated RBC % 0.0 /100WBC Nucleated RBCs # 0 K/uL INR Sodium (136-145) mmol/L Potassium (3.5-5.1) mmol/L Chloride (98-107) mmol/L Carbon Dioxide (21.0-32.0) mmol/L BUN (7.0-18.0) mg/dL Creatinine (0.6-1.0) mg/dL Est Cr Clr Drug Dosing mL/min Estimated GFR (MDRD) ml/min Glucose (74-106) mg/dL Lactic Acid 0.8 (0.4-2.0) mmol/L Calcium (8.5-10.1) mg/dL Magnesium (1.8-2.4) mg/dL Total Bilirubin (0.2-1.0) mg/dL AST (15-37) IU/L ALT (14-63) IU/L Alkaline Phosphatase (46-116) U/L Troponin I (0.000-0.056) ng/mL Total Protein (6.4-8.2) g/dL Albumin (3.4-5.0) g/dL Globulin (2.6-4.0) g/dL Albumin/Globulin Ratio (0.9-1.6) SARS-CoV-2 RNA (AJ) NEGATIVE (NEGATIVE) 03/03/21 Range/Units 06:00 WBC (4.0-11.0) K/uL RBC (4.30-5.90) M/uL Hgb (12.0-16.0) g/dL Hct (36.0-46.0) % MCV (80.0-98.0) fL MCH (27.0-32.0) pg MCHC (31.0-37.0) g/dL RDW Std Deviation (28.0-62.0) fl RDW Coeff of Murtaza (11.0-15.0) % Plt Count (150-400) K/uL MPV (7.40-12.00) fL Neut % (Auto) (48.0-80.0) % Lymph % (Auto) (16.0-40.0) % Montgomery % (Auto) (0.0-15.0) % Eos % (Auto) (0.0-7.0) % Baso % (Auto) (0.0-1.5) % Neut # (Auto) (1.4-5.7) K/uL Lymph # (Auto) (0.6-2.4) K/uL [place] # (Auto) (0.0-0.8) K/uL Eos # (Auto) (0.0-0.7) K/uL Baso # (Auto) (0.0-0.1) K/uL Nucleated RBC % /100WBC Nucleated RBCs # K/uL INR Sodium 142 (136-145) mmol/L Potassium 4.4 (3.5-5.1) mmol/L Chloride 103 (98-107) mmol/L Carbon Dioxide 29.3 (21.0-32.0) mmol/L BUN 11 (7.0-18.0) mg/dL Creatinine 0.7 (0.6-1.0) mg/dL Est Cr Clr Drug Dosing 65.90 mL/min Estimated GFR (MDRD) > 60.0 ml/min Glucose 83 (74-106) mg/dL Lactic Acid (0.4-2.0) mmol/L Calcium 8.3 L (8.5-10.1) mg/dL Magnesium (1.8-2.4) mg/dL Total Bilirubin (0.2-1.0) mg/dL AST (15-37) IU/L ALT (14-63) IU/L Alkaline Phosphatase (46-116) U/L Troponin I (0.000-0.056) ng/mL Total Protein (6.4-8.2) g/dL Albumin (3.4-5.0) g/dL Globulin (2.6-4.0) g/dL Albumin/Globulin Ratio (0.9-1.6) SARS-CoV-2 RNA (AJ) (NEGATIVE) Result Diagrams: 03/03/21 06:00 03/03/21 06:00 [place] Results Last 24 hrs: Microbiology 03/02/21 13:26 Influenza Type A Antigen Screen - Final Nasopharyngeal Swab NEGATIVE INFLUENZA A VIRUS AG REFERENCE RANGE: NEGATIVE Influenza Type B Antigen Screen - Final NEGATIVE INFLUENZA B VIRUS AG REFERENCE RANGE: NEGATIVE 03/02/21 13:10 Anaerobic Blood Culture - Final Blood - Venous - Lab Draw Sepsis Event Note - Evaluation Sepsis Screening Result: No Definite Risk - Focused Exam Vital Signs: Vital Signs Temp Pulse Resp BP Pulse Ox 03/03/21 07:00 97.5 F 88 18 118/58 L 88 L 03/03/21 03:00 96.8 F L 77 20 123/61 94 L 03/02/21 23:00 97.4 F 89 20 113/65 94 L - Problem List & Annotations (1) Hemophilia SNOMED Code(s): 51667038 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 Status: Acute Current Visit: Yes (2) Anxiety SNOMED Code(s): 55362919 Code(s): F41.9 - ANXIETY DISORDER, UNSPECIFIED Status: Acute Current Visit: Yes (3) Depression SNOMED Code(s): 70700001 Code(s): F32.A - DEPRESSION, UNSPECIFIED Status: Acute Current Visit: Yes (4) Insomnia SNOMED Code(s): 668511091 Code(s): G47.00 - INSOMNIA, UNSPECIFIED Status: Acute Current Visit: Yes (5) GERD (gastroesophageal reflux disease) SNOMED Code(s): 418210508 Code(s): K21.9 - GASTRO-ESOPHAGEAL REFLUX DISEASE WITHOUT ESOPHAGITIS Status: Acute Current Visit: Yes (6) Pneumonia SNOMED Code(s): 919754284 Code(s): J18.9 - PNEUMONIA, UNSPECIFIED ORGANISM Status: Acute Current Visit: Yes (7) Back pain SNOMED Code(s): 990914294 Code(s): M54.9 - DORSALGIA, UNSPECIFIED Status: Acute Current Visit: No Qualifiers: Back pain location: low back pain Chronicity: acute Back pain laterality: bilateral Sciatica presence: with sciatica Sciatica laterality: sciatica laterality unspecified Qualified Code(s): M54.40 - Lumbago with sciatica, unspecified side (8) COPD exacerbation SNOMED Code(s): 514115150, 151346068 Code(s): J44.1 - CHRONIC OBSTRUCTIVE PULMONARY DISEASE W (ACUTE) EXACERBATION Status: Acute Current Visit: No - Problem List Review Problem List Initiated/Reviewed/Updated: Yes - My Orders Last 24 Hours: My Active Orders 03/03/21 09:00 Pantoprazole [ProTONIX] 40 mg PO DAILY 03/03/21 21:00 Melatonin 6 mg PO BEDTIME PRN - Plan Plan:: 1. Community-acquired pneumonia -We will continue with azithromycin 500 mg per IV route every 24 hours -We will continue with Rocephin 1 g per IV route every 24 hours -Patient is currently on 5 L of oxygen saturating at 94%, continue to supply oxygen as needed -Daily CBC/CMP to check for white blood cell status and/or any abnormalities 2. Hemophilia -Continue home prednisone dosage of 50 mg per oral route once a day, last dose was held 3. COPD -Duo nebs are on board 3 mL every 6 hours scheduled 4. Anxiety -Continue hydroxyzine 25 mg per oral route twice a day as needed 5. Depression -Continue fluoxetine 20 mg per oral route once a day 6. GERD -Pantoprazole 40 mg per oral route once a day is on board 7. Insomnia -We have started the patient on melatonin at bedtime
[2021-03-03] MEDS: Benzonatate 100 MG Cap PO PRN ×2 (10:45→19:58)
[2021-03-03] MEDS: traMADol 50 MG Tab PO PRN (10:46)
[2021-03-03] MEDS: Docusate Sodium 100 MG Cap PO PRN (14:38)
[2021-03-03] MEDS: Melatonin 3 MG Tab PO PRN (19:52)
[2021-03-03] MEDS: cefTRIAXone 1 GM in Premix Bag 1 BAG IV SCH (19:54)
[2021-03-03] MEDS ORDERED: traMADol 50 MG Tab PO ONE (21:54)
[2021-03-04] MEDS: Albuterol/Ipratropium 3.0-0.5 MG/3 ML Neb Soln NEB SCH ×5 (00:07→23:04)
[2021-03-04] MEDS: Benzonatate 100 MG Cap PO PRN ×3 (05:48→20:33)
[2021-03-04 07:04] LABS: BLOOD UREA NITROGEN,BUN 10 mg/dL (7.0-18.0); CARBON DIOXIDE,CO2 32.5 mmol/L (21.0-32.0); CHLORIDE,CL 104 mmol/L (98-107); GLUCOSE RANDOM 85 mg/dL (74-106); POTASSIUM,K 3.9 mmol/L (3.5-5.1); SODIUM,NA 144 mmol/L (136-145)
[2021-03-04] MEDS: Pantoprazole 40 MG Tab.CR PO SCH (08:36)
[2021-03-04] MEDS: FLUoxetine 20 MG Cap PO SCH (08:37)
[2021-03-04] MEDS: Cholecalciferol (Vitamin D3) 25 MCG Tab PO SCH (08:38)
[2021-03-04] MEDS: Azithromycin 500 MG in Sodium Chloride 0.9% 250 ML IV SCH (08:38)
[2021-03-04] MEDS: predniSONE 20 MG Tab PO SCH (08:43)
[2021-03-04] MEDS: Lactated Ringers 1,000 ML IV SCH (08:47)
[2021-03-04] MEDS: traMADol 50 MG Tab PO PRN (08:56)
[2021-03-04] MEDS: Tiotropium Inhaler 18 MCG Inhalation Powder Cap Kit of 5 INH SCH (09:14)
[2021-03-04] MEDS: hydrOXYzine Pamoate 25 MG Cap PO PRN ×2 (10:06→22:49)
[2021-03-04] MEDS: Budesonide/Formoterol [Symbicort 160-4.5 Mcg] INH SCH ×2 (12:44→21:23)
--- NOTE | 2021-03-04 15:40 | PCM.PN ---
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 Upon interview with the patient today she feels extremely weak and is having trouble ambulating. Physical therapy was notified and worked with the patient and expressed that she will need continuous skilled help. The patient continues to have productive cough producing yellow sputum, but admits her shortness of breath has improved. She denies fever, chest pain, palpitations, nausea, vomiting, diarrhea, and any issues with urination. The patient is currently on 3 liters of oxygen and saturating at 89 %. Her white blood cells have decreased significantly since being admitted from 19.97 to 9.55. The patient does not eat much but does like boost and Ensure and will be provided with this as nutrition moving forward. She has no other concerns at this time. - Review of Systems General: Reports: Weakness, Fatigue. Denies: Fever HEENT: Denies: Headaches, Sore Throat Pulmonary: Reports: Shortness of Breath, Cough, Sputum. Denies: Pleuritic Chest Pain Cardiovascular: Denies: Chest Pain, Palpitations Gastrointestinal: Denies: Abdominal Pain Genitourinary: Denies: Dysuria - Patient Data Vitals - Most Recent: Last Vital Signs Temp 97.3 F 03/04/21 11:30 Pulse 87 03/04/21 11:30 Resp 20 03/04/21 11:30 BP 169/76 H 03/04/21 11:30 Pulse Ox 93 L 03/04/21 11:30 Weight - Most Recent: 122 lb 4.8 oz I&O - Last 24 Hours: Intake & Output 03/04/21 03/04/21 03/04/21 06:59 14:59 22:59 Intake Total 300 420 Balance 300 420 Lab Results Last 24 Hours: Laboratory Results - last 24 hr 03/04/21 03/04/21 Range/Units 05:27 05:27 WBC 9.55 (4.0-11.0) K/uL RBC 3.62 L (4.30-5.90) M/uL Hgb 11.2 L (12.0-16.0) g/dL Hct 34.2 L (36.0-46.0) % MCV 94.5 (80.0-98.0) fL MCH 30.9 (27.0-32.0) pg MCHC 32.7 (31.0-37.0) g/dL RDW Std Deviation 48.6 (28.0-62.0) fl RDW Coeff of Murtaza 14 (11.0-15.0) % Plt Count 227 (150-400) K/uL MPV 9.30 (7.40-12.00) fL Neut % (Auto) 73.9 (48.0-80.0) % Lymph % (Auto) 15.3 L (16.0-40.0) % [place] % (Auto) 10.4 (0.0-15.0) % Eos % (Auto) 0.3 (0.0-7.0) % Baso % (Auto) 0.1 (0.0-1.5) % Neut # (Auto) 7.1 H (1.4-5.7) K/uL Lymph # (Auto) 1.5 (0.6-2.4) K/uL [place] # (Auto) 1.0 H (0.0-0.8) K/uL Eos # (Auto) 0.0 (0.0-0.7) K/uL Baso # (Auto) 0.0 (0.0-0.1) K/uL Nucleated RBC % 0.0 /100WBC Nucleated RBCs # 0 K/uL Sodium 144 (136-145) mmol/L Potassium 3.9 (3.5-5.1) mmol/L Chloride 104 (98-107) mmol/L Carbon Dioxide 32.5 H (21.0-32.0) mmol/L BUN 10 (7.0-18.0) mg/dL Creatinine 0.9 (0.6-1.0) mg/dL Est Cr Clr Drug Dosing 51.26 mL/min Estimated GFR (MDRD) > 60.0 ml/min Glucose 85 (74-106) mg/dL Calcium 8.8 (8.5-10.1) mg/dL [place] Results Last 24 Hours: Microbiology 03/02/21 13:10 Aerobic Blood Culture - Preliminary Blood - Venous - Lab Draw NO GROWTH AFTER 2 DAYS Anaerobic Blood Culture - Final 03/02/21 12:51 Aerobic Blood Culture - Preliminary Blood - Venous NO GROWTH AFTER 2 DAYS Anaerobic Blood Culture - Preliminary NO GROWTH AFTER 2 DAYS Med Orders - Current: Current Medications Albuterol/Ipratropium (Albuterol/Ipratropium 3.0-0.5 Mg/3 Ml Neb Soln) 3 ml NEB Q6HRRT [facility] Last Admin: 03/04/21 12:24 Dose: 3 ml Documented by: Benzonatate (Benzonatate 100 Mg Cap) 100 mg PO Q6H PRN PRN Reason: Cough Last Admin: 03/04/21 11:52 Dose: 100 mg Documented by: Cholecalciferol (Cholecalciferol (Vitamin D3) 25 Mcg Tab) 125 mcg PO DAILY [facility] Last Admin: 03/04/21 08:38 Dose: 125 mcg Documented by: Docusate Sodium (Docusate Sodium 100 Mg Cap) 100 mg PO Q12H PRN PRN Reason: Constipation Last Admin: 03/03/21 14:38 Dose: 100 mg Documented by: Fluoxetine HCl (Fluoxetine 20 Mg Cap) 20 mg PO DAILY [facility] Last Admin: 03/04/21 08:37 Dose: 20 mg Documented by: Hydroxyzine Pamoate (Hydroxyzine Pamoate 25 Mg Cap) 25 mg PO BID PRN PRN Reason: Anxiety Last Admin: 03/04/21 10:06 Dose: 25 mg Documented by: Azithromycin 500 mg/ Sodium (Chloride) 250 mls @ 250 mls/hr IV DAILY [facility] Last Admin: 03/04/21 08:38 Dose: 250 mls/hr Documented by: Ceftriaxone Sodium/Dextrose 1 (gm/ Premix) 50 mls @ 100 mls/hr IV Q24H [facility] Last Admin: 03/03/21 19:54 Dose: 100 mls/hr Documented by: Melatonin (Melatonin 3 Mg Tab) 6 mg PO BEDTIME PRN PRN Reason: Insomnia Last Admin: 03/03/21 19:52 Dose: 6 mg Documented by: Pantoprazole Sodium (Pantoprazole 40 Mg Tab.Cr) 40 mg PO DAILY [facility] Last Admin: 03/04/21 08:36 Dose: 40 mg Documented by: Budesonide/Formoterol [ Symbicort 160-4.5 Mcg] 2 each INH BID [facility] Last Admin: 03/04/21 12:44 Dose: Not Given Documented by: Prednisone (Prednisone 20 Mg Tab) 50 mg PO DAILY [facility] Last Admin: 03/04/21 08:43 Dose: 50 mg Documented by: Tiotropium [place] (Tiotropium Inhaler 18 Mcg Inhalation Powder Cap Kit Of 5) 18 mcg INH DAILY [facility] Last Admin: 03/04/21 09:14 Dose: 1 cap Documented by: Tramadol HCl (Tramadol 50 Mg Tab) 50 mg PO DAILY PRN PRN Reason: Pain Last Admin: 03/04/21 08:56 Dose: 50 mg Documented by: Discontinued Medications Albuterol/Ipratropium (Albuterol/Ipratropium 3.0-0.5 Mg/3 Ml Neb Soln) 3 ml NEB ONETIME ONE Stop: 03/02/21 12:45 Last Admin: 03/02/21 13:26 Dose: 3 ml Documented by: Albuterol/Ipratropium (Albuterol/Ipratropium 3.0-0.5 Mg/3 Ml Neb Soln) 3 ml NEB Q6H [facility] Last Admin: 03/03/21 05:08 Dose: Not Given Documented by: Azithromycin (Azithromycin 500 Mg Vial) 500 mg IV Q24H [facility] Last Admin: 03/03/21 05:09 Dose: Not Given Documented by: Azithromycin (Azithromycin 500 Mg Vial) Confirm Administered Dose 500 mg .ROUTE .STK-MED ONE Stop: 03/02/21 22:33 Last Admin: 03/02/21 23:28 Dose: Not Given Documented by: Ceftriaxone Sodium (Ceftriaxone 1 Gm Vial) 1 gm IVPUSH Q24H [facility] Lactated Ringer's (Ringers, Lactated) 1,000 mls @ 999 mls/hr IV ASDIRECTED [facility] Last Admin: 03/02/21 13:15 Dose: 999 mls/hr Documented by: Ampicillin Sodium/Sulbactam (Sodium 3 gm/ Sodium Chloride) 100 mls @ 200 mls/hr IV ONETIME ONE Stop: 03/02/21 13:24 Last Admin: 03/02/21 13:57 Dose: 200 mls/hr Documented by: Lactated Ringer's (Ringers, Lactated) 1,000 mls @ 125 mls/hr IV ASDIRECTED [facility] Last Admin: 03/04/21 08:47 Dose: 125 mls/hr Documented by: Ceftriaxone Sodium/Dextrose 1 (gm/ Premix) 50 mls @ 100 mls/hr IV ONETIME ONE Stop: 03/02/21 18:39 Last Admin: 03/03/21 05:10 Dose: Not Given Documented by: Iopamidol (Iopamidol 755 Mg/Ml 500 Ml Multipack Bottle) 100 ml IVPUSH ONETIME STA Stop: 03/02/21 15:33 Last Admin: 03/02/21 15:33 Dose: 100 ml Documented by: Tramadol HCl (Tramadol 50 Mg Tab) 50 mg PO ONETIME ONE Stop: 03/03/21 21:55 Last Admin: 03/04/21 00:06 Dose: Not Given Documented by: - Exam General: Alert, Oriented, Cooperative, No Acute Distress HEENT: Other (Dry mucous membranes) Neck: Trachea Midline Lungs: Rhonchi Cardiovascular: Regular Rate, Regular Rhythm, No Murmurs GI/Abdominal Exam: Normal Bowel Sounds, Soft, Non-Tender, No Organomegaly Extremities: No Pedal Edema - Patient Data Lab Results Last 24 hrs: Laboratory Results - last 24 hr 03/04/21 03/04/21 Range/Units 05:27 05:27 WBC 9.55 (4.0-11.0) K/uL RBC 3.62 L (4.30-5.90) M/uL Hgb 11.2 L (12.0-16.0) g/dL Hct 34.2 L (36.0-46.0) % MCV 94.5 (80.0-98.0) fL MCH 30.9 (27.0-32.0) pg MCHC 32.7 (31.0-37.0) g/dL RDW Std Deviation 48.6 (28.0-62.0) fl RDW Coeff of [place]ta[place] 14 (11.0-15.0) % Plt Count 227 (150-400) K/uL MPV 9.30 (7.40-12.00) fL Neut % (Auto) 73.9 (48.0-80.0) % Lymph % (Auto) 15.3 L (16.0-40.0) % [place] % (Auto) 10.4 (0.0-15.0) % Eos % (Auto) 0.3 (0.0-7.0) % Baso % (Auto) 0.1 (0.0-1.5) % Neut # (Auto) 7.1 H (1.4-5.7) K/uL Lymph # (Auto) 1.5 (0.6-2.4) K/uL [place] # (Auto) 1.0 H (0.0-0.8) K/uL Eos # (Auto) 0.0 (0.0-0.7) K/uL Baso # (Auto) 0.0 (0.0-0.1) K/uL Nucleated RBC % 0.0 /100WBC Nucleated RBCs # 0 K/uL Sodium 144 (136-145) mmol/L Potassium 3.9 (3.5-5.1) mmol/L Chloride 104 (98-107) mmol/L Carbon Dioxide 32.5 H (21.0-32.0) mmol/L BUN 10 (7.0-18.0) mg/dL Creatinine 0.9 (0.6-1.0) mg/dL Est Cr Clr Drug Dosing 51.26 mL/min Estimated GFR (MDRD) > 60.0 ml/min Glucose 85 (74-106) mg/dL Calcium 8.8 (8.5-10.1) mg/dL Result Diagrams: 03/04/21 05:27 03/04/21 05:27 [place] Results Last 24 hrs: Microbiology 03/02/21 13:10 Aerobic Blood Culture - Preliminary Blood - Venous - Lab Draw NO GROWTH AFTER 2 DAYS Anaerobic Blood Culture - Final 03/02/21 12:51 Aerobic Blood Culture - Preliminary Blood - Venous NO GROWTH AFTER 2 DAYS Anaerobic Blood Culture - Preliminary NO GROWTH AFTER 2 DAYS Sepsis Event Note - Evaluation Sepsis Screening Result: No Definite Risk - Focused Exam Vital Signs: Vital Signs Temp Pulse Resp BP Pulse Ox 03/04/21 11:30 97.3 F 87 20 169/76 H 93 L 03/04/21 09:02 90 L 03/04/21 07:27 98.4 F 97 22 H 140/78 89 L 03/04/21 04:00 98.2 F 92 22 H 167/76 H 92 L - Problem List & Annotations (1) Hemophilia SNOMED Code(s): 84315012 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 Status: Acute Current Visit: Yes (2) Anxiety SNOMED Code(s): 39100311 Code(s): F41.9 - ANXIETY DISORDER, UNSPECIFIED Status: Acute Current Visit: Yes (3) Depression SNOMED Code(s): 84520794 Code(s): F32.A - DEPRESSION, UNSPECIFIED Status: Acute Current Visit: Yes (4) Insomnia SNOMED Code(s): 761335704 Code(s): G47.00 - INSOMNIA, UNSPECIFIED Status: Acute Current Visit: Yes (5) GERD (gastroesophageal reflux disease) SNOMED Code(s): 107183587 Code(s): K21.9 - GASTRO-ESOPHAGEAL REFLUX DISEASE WITHOUT ESOPHAGITIS Status: Acute Current Visit: Yes (6) Pneumonia SNOMED Code(s): 519839286 Code(s): J18.9 - PNEUMONIA, UNSPECIFIED ORGANISM Status: Acute Current Visit: Yes (7) COPD exacerbation SNOMED Code(s): 300316304, 630986661 Code(s): J44.1 - CHRONIC OBSTRUCTIVE PULMONARY DISEASE W (ACUTE) EXACERBATION Status: Acute Current Visit: No (8) Weakness SNOMED Code(s): 26496157 Code(s): R53.1 - WEAKNESS Status: Acute Current Visit: Yes - Problem List Review Problem List Initiated/Reviewed/Updated: Yes - My Orders Last 24 Hours: My Active Orders 03/03/21 21:00 Melatonin 6 mg PO BEDTIME PRN 03/04/21 09:41 Consult to Physical Therapy [PT Evaluation and Treatment] [CONS] Routine - Plan Plan:: 1. Community-acquired pneumonia -Continue with azithromycin 500 mg per IV route every 24 hours -Continue with Rocephin 1 g per IV route every 24 hours -Patient is currently on 3 L of oxygen saturating at 89%, which is an improvement from yesterday, continue to supply oxygen as needed -Daily CBC/CMP to check for white blood cell status and/or any abnormalities 2. Weakness -PT came to see the patient today for an assessment, will meeting with them today and they expressed that the patient will need ongoing skilled help in order to build up her strength 3. COPD -Duo nebs are on board 3 mL every 6 hours scheduled 4. Anxiety -Continue hydroxyzine 25 mg per oral route twice daily 5. Depression -Continue fluoxetine 20 mg per oral route OD 6. GERD -Continue pantoprazole 40 mg per oral route OD 7. Insomnia -Continue melatonin at bedtime 8. Hemophilia -Continue home prednisone dosage of 50 mg per oral OD
[2021-03-04] MEDS: cefTRIAXone 1 GM in Premix Bag 1 BAG IV SCH (20:31)
[2021-03-04] MEDS: Melatonin 3 MG Tab PO PRN (20:33)
[2021-03-05] MEDS: Albuterol/Ipratropium 3.0-0.5 MG/3 ML Neb Soln NEB SCH ×3 (05:58→17:25)
[2021-03-05 06:31] LABS: BLOOD UREA NITROGEN,BUN 10 mg/dL (7.0-18.0); CARBON DIOXIDE,CO2 36.2 mmol/L (21.0-32.0); CHLORIDE,CL 105 mmol/L (98-107); GLUCOSE RANDOM 82 mg/dL (74-106); POTASSIUM,K 3.8 mmol/L (3.5-5.1); SODIUM,NA 145 mmol/L (136-145)
[2021-03-05] MEDS: Cholecalciferol (Vitamin D3) 25 MCG Tab PO SCH (09:26)
[2021-03-05] MEDS: FLUoxetine 20 MG Cap PO SCH (09:26)
[2021-03-05] MEDS: Pantoprazole 40 MG Tab.CR PO SCH (09:26)
[2021-03-05] MEDS: predniSONE 20 MG Tab PO SCH (09:26)
[2021-03-05] MEDS: Tiotropium Inhaler 18 MCG Inhalation Powder Cap Kit of 5 INH SCH (09:29)
[2021-03-05] MEDS: Azithromycin 500 MG in Sodium Chloride 0.9% 250 ML IV SCH (09:30)
[2021-03-05] MEDS: Budesonide/Formoterol [Symbicort 160-4.5 Mcg] INH SCH ×2 (09:35→20:44)
[2021-03-05] MEDS: traMADol 50 MG Tab PO PRN (12:56)
[2021-03-05] MEDS: hydrOXYzine Pamoate 25 MG Cap PO PRN ×2 (12:57→22:03)
--- NOTE | 2021-03-05 15:25 | PCM.PN ---
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 The patient continues to have productive cough producing yellow sput um, but admits her shortness of breath has improved. She denies fever, chest pain, palpitations, nausea, vomiting, diarrhea, and any issues with urination. The patient is currently on 3 liters of oxygen and saturating at 89 %. Daughter at bedside, all questions and concerns answered Functional Status: Reports: Tolerating Diet, Ambulating - Review of Systems General: Reports: Weakness, Fatigue, Malaise. Denies: Fever Pulmonary: Reports: Shortness of Breath, Cough, Sputum, Wheezing Cardiovascular: Reports: Dyspnea on Exertion. Denies: Chest Pain, Palpitations Gastrointestinal: Denies: Abdominal Pain, Constipation, Decreased Appetite Genitourinary: Denies: Dysuria, Frequency, Burning Musculoskeletal: Denies: Neck Pain, Shoulder Pain, Arm Pain, Hand Pain Skin: Denies: Cyanosis, Jaundice, Mottled, Pallor Neurological: Denies: Confusion, Dizziness, Headache - Patient Data Vitals - Most Recent: Last Vital Signs Temp 36.6 C 03/05/21 12:00 Pulse 92 03/05/21 13:00 Resp 18 03/05/21 12:00 BP 183/79 H 03/05/21 13:00 Pulse Ox 88 L 03/05/21 12:00 Weight - Most Recent: 55.474 kg I&O - Last 24 Hours: Intake & Output 03/05/21 03/05/21 03/05/21 06:59 14:59 22:59 Intake Total 900 Output Total 1050 Balance -150 Lab Results Last 24 Hours: Laboratory Results - last 24 hr 03/05/21 03/05/21 Range/Units 05:20 05:20 WBC 7.43 (4.0-11.0) K/uL RBC 3.62 L (4.30-5.90) M/uL Hgb 11.0 L (12.0-16.0) g/dL Hct 34.1 L (36.0-46.0) % MCV 94.2 (80.0-98.0) fL MCH 30.4 (27.0-32.0) pg MCHC 32.3 (31.0-37.0) g/dL RDW Std Deviation 48.1 (28.0-62.0) fl RDW Coeff of [place] 14 (11.0-15.0) % Plt Count 239 (150-400) K/uL MPV 8.90 (7.40-12.00) fL Add Manual Diff YES Neutrophils % (Manual) 76 (48.0-80.0) % Band Neutrophils % 3 % Lymphocytes % (Manual) 11 L (16.0-40.0) % Monocytes % (Manual) 10 (0.0-15.0) % Nucleated RBC % 0.0 /100WBC Absolute Seg Neuts 5.6 (1.4-5.7) Band Neutrophils # 0.2 Lymphocytes # (Manual) 0.8 (0.6-2.4) Monocytes # (Manual) 0.7 (0.0-0.8) Nucleated RBCs # 0 K/uL Sodium 145 (136-145) mmol/L Potassium 3.8 (3.5-5.1) mmol/L Chloride 105 (98-107) mmol/L Carbon Dioxide 36.2 H (21.0-32.0) mmol/L BUN 10 (7.0-18.0) mg/dL Creatinine 0.7 (0.6-1.0) mg/dL Est Cr Clr Drug Dosing 65.90 mL/min Estimated GFR (MDRD) > 60.0 ml/min Glucose 82 (74-106) mg/dL Calcium 9.0 (8.5-10.1) mg/dL [place] Results Last 24 Hours: Microbiology 03/02/21 13:10 Aerobic Blood Culture - Preliminary Blood - Venous - Lab Draw NO GROWTH AFTER 3 DAYS Anaerobic Blood Culture - Final 03/02/21 12:51 Aerobic Blood Culture - Preliminary Blood - Venous NO GROWTH AFTER 3 DAYS Anaerobic Blood Culture - Preliminary NO GROWTH AFTER 3 DAYS Med Orders - Current: Current Medications Albuterol/Ipratropium (Albuterol/Ipratropium 3.0-0.5 Mg/3 Ml Neb Soln) 3 ml NEB Q6HRRT [facility] Last Admin: 03/05/21 11:25 Dose: 3 ml Documented by: Benzonatate (Benzonatate 100 Mg Cap) 100 mg PO Q6H PRN PRN Reason: Cough Last Admin: 03/04/21 20:33 Dose: 100 mg Documented by: Cholecalciferol (Cholecalciferol (Vitamin D3) 25 Mcg Tab) 125 mcg PO DAILY [facility] Last Admin: 03/05/21 09:26 Dose: 125 mcg Documented by: Docusate Sodium (Docusate Sodium 100 Mg Cap) 100 mg PO Q12H PRN PRN Reason: Constipation Last Admin: 03/03/21 14:38 Dose: 100 mg Documented by: Fluoxetine HCl (Fluoxetine 20 Mg Cap) 20 mg PO DAILY [facility] Last Admin: 03/05/21 09:26 Dose: 20 mg Documented by: Hydroxyzine Pamoate (Hydroxyzine Pamoate 25 Mg Cap) 25 mg PO BID PRN PRN Reason: Anxiety Last Admin: 03/05/21 12:57 Dose: 25 mg Documented by: Azithromycin 500 mg/ Sodium (Chloride) 250 mls @ 250 mls/hr IV DAILY [facility] Last Admin: 03/05/21 09:30 Dose: 250 mls/hr Documented by: Ceftriaxone Sodium/Dextrose 1 (gm/ Premix) 50 mls @ 100 mls/hr IV Q24H [facility] Last Admin: 03/04/21 20:31 Dose: 100 mls/hr Documented by: Melatonin (Melatonin 3 Mg Tab) 6 mg PO BEDTIME PRN PRN Reason: Insomnia Last Admin: 03/04/21 20:33 Dose: 6 mg Documented by: Pantoprazole Sodium (Pantoprazole 40 Mg Tab.Cr) 40 mg PO ACBREAKFAST [facility] Budesonide/Formoterol [ Symbicort 160-4.5 Mcg] 2 each INH BID [facility] Last Admin: 03/05/21 09:35 Dose: Not Given Documented by: Prednisone (Prednisone 20 Mg Tab) 50 mg PO DAILY [facility] Last Admin: 03/05/21 09:26 Dose: 50 mg Documented by: Tiotropium [place] (Tiotropium Inhaler 18 Mcg Inhalation Powder Cap Kit Of 5) 18 mcg INH DAILY [facility] Last Admin: 03/05/21 09:29 Dose: 1 cap Documented by: Tramadol HCl (Tramadol 50 Mg Tab) 50 mg PO DAILY PRN PRN Reason: Pain Last Admin: 03/05/21 12:56 Dose: 50 mg Documented by: Discontinued Medications Albuterol/Ipratropium (Albuterol/Ipratropium 3.0-0.5 Mg/3 Ml Neb Soln) 3 ml NEB ONETIME ONE Stop: 03/02/21 12:45 Last Admin: 03/02/21 13:26 Dose: 3 ml Documented by: Albuterol/Ipratropium (Albuterol/Ipratropium 3.0-0.5 Mg/3 Ml Neb Soln) 3 ml NEB Q6H [facility] Last Admin: 03/03/21 05:08 Dose: Not Given Documented by: Azithromycin (Azithromycin 500 Mg Vial) 500 mg IV Q24H [facility] Last Admin: 03/03/21 05:09 Dose: Not Given Documented by: Azithromycin (Azithromycin 500 Mg Vial) Confirm Administered Dose 500 mg .ROUTE .STK-MED ONE Stop: 03/02/21 22:33 Last Admin: 03/02/21 23:28 Dose: Not Given Documented by: Ceftriaxone Sodium (Ceftriaxone 1 Gm Vial) 1 gm IVPUSH Q24H [facility] Lactated Ringer's (Ringers, Lactated) 1,000 mls @ 999 mls/hr IV ASDIRECTED [facility] Last Admin: 03/02/21 13:15 Dose: 999 mls/hr Documented by: Ampicillin Sodium/Sulbactam (Sodium 3 gm/ Sodium Chloride) 100 mls @ 200 mls/hr IV ONETIME ONE Stop: 03/02/21 13:24 Last Admin: 03/02/21 13:57 Dose: 200 mls/hr Documented by: Lactated Ringer's (Ringers, Lactated) 1,000 mls @ 125 mls/hr IV ASDIRECTED [facility] Last Admin: 03/04/21 08:47 Dose: 125 mls/hr Documented by: Ceftriaxone Sodium/Dextrose 1 (gm/ Premix) 50 mls @ 100 mls/hr IV ONETIME ONE Stop: 03/02/21 18:39 Last Admin: 03/03/21 05:10 Dose: Not Given Documented by: Iopamidol (Iopamidol 755 Mg/Ml 500 Ml Multipack Bottle) 100 ml IVPUSH ONETIME STA Stop: 03/02/21 15:33 Last Admin: 03/02/21 15:33 Dose: 100 ml Documented by: Pantoprazole Sodium (Pantoprazole 40 Mg Tab.Cr) 40 mg PO DAILY [facility] Last Admin: 03/05/21 09:26 Dose: 40 mg Documented by: Tramadol HCl (Tramadol 50 Mg Tab) 50 mg PO ONETIME ONE Stop: 03/03/21 21:55 Last Admin: 03/04/21 00:06 Dose: Not Given Documented by: - Exam Quality Assessment: Supplemental Oxygen General: Alert, Oriented, Mild Distress Lungs: Decreased Breath Sounds, Rales, Rhonchi, Wheezing Cardiovascular: Regular Rate, Regular Rhythm GI/Abdominal Exam: Normal Bowel Sounds, Soft, Non-Tender - Patient Data Lab Results Last 24 hrs: Laboratory Results - last 24 hr 03/05/21 03/05/21 Range/Units 05:20 05:20 WBC 7.43 (4.0-11.0) K/uL RBC 3.62 L (4.30-5.90) M/uL Hgb 11.0 L (12.0-16.0) g/dL Hct 34.1 L (36.0-46.0) % MCV 94.2 (80.0-98.0) fL MCH 30.4 (27.0-32.0) pg MCHC 32.3 (31.0-37.0) g/dL RDW Std Deviation 48.1 (28.0-62.0) fl RDW Coeff of [place] 14 (11.0-15.0) % Plt Count 239 (150-400) K/uL MPV 8.90 (7.40-12.00) fL Add Manual Diff YES Neutrophils % (Manual) 76 (48.0-80.0) % Band Neutrophils % 3 % Lymphocytes % (Manual) 11 L (16.0-40.0) % Monocytes % (Manual) 10 (0.0-15.0) % Nucleated RBC % 0.0 /100WBC Absolute Seg Neuts 5.6 (1.4-5.7) Band Neutrophils # 0.2 Lymphocytes # (Manual) 0.8 (0.6-2.4) Monocytes # (Manual) 0.7 (0.0-0.8) Nucleated RBCs # 0 K/uL Sodium 145 (136-145) mmol/L Potassium 3.8 (3.5-5.1) mmol/L Chloride 105 (98-107) mmol/L Carbon Dioxide 36.2 H (21.0-32.0) mmol/L BUN 10 (7.0-18.0) mg/dL Creatinine 0.7 (0.6-1.0) mg/dL Est Cr Clr Drug Dosing 65.90 mL/min Estimated GFR (MDRD) > 60.0 ml/min Glucose 82 (74-106) mg/dL Calcium 9.0 (8.5-10.1) mg/dL Result Diagrams: 03/05/21 05:20 03/05/21 05:20 [place] Results Last 24 hrs: Microbiology 03/02/21 13:10 Aerobic Blood Culture - Preliminary Blood - Venous - Lab Draw NO GROWTH AFTER 3 DAYS Anaerobic Blood Culture - Final 03/02/21 12:51 Aerobic Blood Culture - Preliminary Blood - Venous NO GROWTH AFTER 3 DAYS Anaerobic Blood Culture - Preliminary NO GROWTH AFTER 3 DAYS Sepsis Event Note - Evaluation Sepsis Screening Result: No Definite Risk - Focused Exam Vital Signs: Vital Signs Temp Pulse Resp BP Pulse Ox 03/05/21 13:00 92 183/79 H 03/05/21 12:47 175/85 H 03/05/21 12:00 36.6 C 94 18 200/74 H 88 L 03/05/21 08:10 36.6 C 93 20 177/73 H 92 L 03/05/21 05:56 77 22 H 165/80 H 94 L 03/05/21 04:00 36.3 C 80 21 H 98 - Problem List & Annotations (1) Anxiety SNOMED Code(s): 57639062 Code(s): F41.9 - ANXIETY DISORDER, UNSPECIFIED Status: Acute Current Visit: Yes (2) Depression SNOMED Code(s): 95830657 Code(s): F32.A - DEPRESSION, UNSPECIFIED Status: Acute Current Visit: Yes (3) GERD (gastroesophageal reflux disease) SNOMED Code(s): 587177518 Code(s): K21.9 - GASTRO-ESOPHAGEAL REFLUX DISEASE WITHOUT ESOPHAGITIS Status: Acute Current Visit: Yes (4) Pneumonia SNOMED Code(s): 978348660 Code(s): J18.9 - PNEUMONIA, UNSPECIFIED ORGANISM Status: Acute Current Visit: Yes (5) Respiratory failure with hypoxia SNOMED Code(s): 96585141815251201 Code(s): J96.91 - RESPIRATORY FAILURE, UNSPECIFIED WITH HYPOXIA Status: Acute Current Visit: Yes (6) Acquired hemophilia SNOMED Code(s): 396321904 Code(s): D68.311 - ACQUIRED HEMOPHILIA Status: Acute Current Visit: No (7) COPD exacerbation SNOMED Code(s): 628713308, 622689654 Code(s): J44.1 - CHRONIC OBSTRUCTIVE PULMONARY DISEASE W (ACUTE) EXACERBATION Status: Acute Current Visit: No (8) HTN (hypertension) SNOMED Code(s): 38157277 Code(s): I10 - ESSENTIAL (PRIMARY) HYPERTENSION Status: Acute Current Visit: Yes - Problem List Review Problem List Initiated/Reviewed/Updated: Yes - Plan Plan:: 60 yo female admitted for community acquired pneumonia Acute hypoxia: on 3 L NC which is up from baseline of 1-2 liters Pneumonia: treating with rocephin and azithromycin Acquired hemophilia: continue steroids COPD: duonebs prn, patient is having decreased air entry as well as wheezing start patient on IV steroids for COPD exacerbation Overall since patient's second exacerbation in last 2 weeks, looks like patient's underlying COPD is progressing and might end up needing more oxygen at baseline that she previously needed Patient will need to follow-up with a car body mechanic upon discharge Patient blood pressure seems to be higher side could be secondary to steroids she has been taking, will start patient on low-dose amlodipine and monitor closely
[2021-03-05] MEDS: amLODIPine 5 MG Tab PO SCH (16:27)
[2021-03-05] MEDS: cefTRIAXone 1 GM in Premix Bag 1 BAG IV SCH (19:52)
[2021-03-05] MEDS: methylPREDNISolone Sodium Succinate 40 MG/1 ML SDV IVPUSH SCH (20:42)
[2021-03-05] MEDS ORDERED: traMADol 50 MG Tab PO ONE (21:00)
[2021-03-05] MEDS: Benzonatate 100 MG Cap PO PRN (22:02)
[2021-03-05] MEDS: Melatonin 3 MG Tab PO PRN (22:02)
[2021-03-06] MEDS: Albuterol/Ipratropium 3.0-0.5 MG/3 ML Neb Soln NEB SCH ×5 (00:23→23:44)
[2021-03-06] MEDS: methylPREDNISolone Sodium Succinate 40 MG/1 ML SDV IVPUSH SCH ×3 (04:40→21:43)
[2021-03-06] MEDS: Pantoprazole 40 MG Tab.CR PO SCH (06:49)
[2021-03-06 06:53] LABS: BLOOD UREA NITROGEN,BUN 13 mg/dL (7.0-18.0); CARBON DIOXIDE,CO2 31.4 mmol/L (21.0-32.0); CHLORIDE,CL 103 mmol/L (98-107); GLUCOSE RANDOM 136 mg/dL (74-106); POTASSIUM,K 4.5 mmol/L (3.5-5.1); SODIUM,NA 144 mmol/L (136-145)
[2021-03-06] MEDS: amLODIPine 5 MG Tab PO SCH (08:14)
[2021-03-06] MEDS: Cholecalciferol (Vitamin D3) 25 MCG Tab PO SCH (08:15)
[2021-03-06] MEDS: FLUoxetine 20 MG Cap PO SCH (08:15)
[2021-03-06] MEDS: Budesonide/Formoterol [Symbicort 160-4.5 Mcg] INH SCH ×2 (08:15→21:51)
[2021-03-06] MEDS: Tiotropium Inhaler 18 MCG Inhalation Powder Cap Kit of 5 INH SCH (08:17)
[2021-03-06] MEDS: Azithromycin 500 MG in Sodium Chloride 0.9% 250 ML IV SCH (08:19)
--- NOTE | 2021-03-06 14:14 | PCM.PN ---
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 Upon interview with the patient today she admits that she feels a lot better, and stronger with physical therapy working with her. She has been participating in different exercises which improved her breathing. She is sleeping well while taking the melatonin and states that her shortness of breath and cough have significantly decreased although not 100%. The patient has been educated on smoking cessation and will make attempts to quit. Her current O2 saturation is 90% on 1.5 L of oxygen. The patient was slightly hypertensive and is receiving amlodipine. She was started on IV steroids yesterday which may be contributing to her significant improvement as well. She has no other complaints at this time. - Review of Systems General: Reports: Weakness, Fatigue. Denies: Fever HEENT: Denies: Headaches, Sore Throat Pulmonary: Reports: Shortness of Breath, Cough Cardiovascular: Denies: Chest Pain, Palpitations Gastrointestinal: Denies: Abdominal Pain, Constipation, Diarrhea Genitourinary: Denies: Dysuria Skin: Denies: Cyanosis - Patient Data Vitals - Most Recent: Last Vital Signs Temp 97.5 F 03/06/21 12:00 Pulse 89 03/06/21 12:00 Resp 18 03/06/21 12:00 BP 127/71 03/06/21 12:00 Pulse Ox 90 L 03/06/21 12:00 Weight - Most Recent: 55.474 kg I&O - Last 24 Hours: Intake & Output 03/05/21 03/06/21 03/06/21 22:59 06:59 14:59 Intake Total 990 900 Output Total 2400 1700 Balance -1410 -800 Lab Results Last 24 Hours: Laboratory Results - last 24 hr 03/06/21 03/06/21 Range/Units 05:30 05:30 WBC 5.85 (4.0-11.0) K/uL RBC 3.86 L (4.30-5.90) M/uL Hgb 11.8 L (12.0-16.0) g/dL Hct 36.1 (36.0-46.0) % MCV 93.5 (80.0-98.0) fL MCH 30.6 (27.0-32.0) pg MCHC 32.7 (31.0-37.0) g/dL RDW Std Deviation 47.1 (28.0-62.0) fl RDW Coeff of Murtaza 14 (11.0-15.0) % Plt Count 254 (150-400) K/uL MPV 8.90 (7.40-12.00) fL Neut % (Auto) 85.7 H (48.0-80.0) % Lymph % (Auto) 9.9 L (16.0-40.0) % [place] % (Auto) 4.4 (0.0-15.0) % Eos % (Auto) 0.0 (0.0-7.0) % Baso % (Auto) 0.0 (0.0-1.5) % Neut # (Auto) 5.0 (1.4-5.7) K/uL Lymph # (Auto) 0.6 (0.6-2.4) K/uL [place] # (Auto) 0.3 (0.0-0.8) K/uL Eos # (Auto) 0.0 (0.0-0.7) K/uL Baso # (Auto) 0.0 (0.0-0.1) K/uL Nucleated RBC % 0.0 /100WBC Nucleated RBCs # 0 K/uL Sodium 144 (136-145) mmol/L Potassium 4.5 (3.5-5.1) mmol/L Chloride 103 (98-107) mmol/L Carbon Dioxide 31.4 (21.0-32.0) mmol/L BUN 13 (7.0-18.0) mg/dL Creatinine 0.7 (0.6-1.0) mg/dL Est Cr Clr Drug Dosing 65.90 mL/min Estimated GFR (MDRD) > 60.0 ml/min Glucose 136 H (74-106) mg/dL Calcium 8.8 (8.5-10.1) mg/dL [place] Results Last 24 Hours: Microbiology 03/02/21 13:10 Aerobic Blood Culture - Preliminary Blood - Venous - Lab Draw NO GROWTH AFTER 4 DAYS Anaerobic Blood Culture - Final 03/02/21 12:51 Aerobic Blood Culture - Preliminary Blood - Venous NO GROWTH AFTER 4 DAYS Anaerobic Blood Culture - Preliminary NO GROWTH AFTER 4 DAYS Med Orders - Current: Current Medications Albuterol/Ipratropium (Albuterol/Ipratropium 3.0-0.5 Mg/3 Ml Neb Soln) 3 ml NEB Q6HRRT [facility] Last Admin: 03/06/21 11:13 Dose: 3 ml Documented by: Amlodipine Besylate (Amlodipine 5 Mg Tab) 5 mg PO DAILY [facility] Last Admin: 03/06/21 08:14 Dose: 5 mg Documented by: Benzonatate (Benzonatate 100 Mg Cap) 100 mg PO Q6H PRN PRN Reason: Cough Last Admin: 03/05/21 22:02 Dose: 100 mg Documented by: Cholecalciferol (Cholecalciferol (Vitamin D3) 25 Mcg Tab) 125 mcg PO DAILY [facility] Last Admin: 03/06/21 08:15 Dose: 125 mcg Documented by: Docusate Sodium (Docusate Sodium 100 Mg Cap) 100 mg PO Q12H PRN PRN Reason: Constipation Last Admin: 03/03/21 14:38 Dose: 100 mg Documented by: Fluoxetine HCl (Fluoxetine 20 Mg Cap) 20 mg PO DAILY [facility] Last Admin: 03/06/21 08:15 Dose: 20 mg Documented by: Hydroxyzine Pamoate (Hydroxyzine Pamoate 25 Mg Cap) 25 mg PO BID PRN PRN Reason: Anxiety Last Admin: 03/05/21 22:03 Dose: 25 mg Documented by: Azithromycin 500 mg/ Sodium (Chloride) 250 mls @ 250 mls/hr IV DAILY [facility] Last Admin: 03/06/21 08:19 Dose: 250 mls/hr Documented by: Ceftriaxone Sodium/Dextrose 1 (gm/ Premix) 50 mls @ 100 mls/hr IV Q24H [facility] Last Admin: 03/05/21 19:52 Dose: 100 mls/hr Documented by: Melatonin (Melatonin 3 Mg Tab) 6 mg PO BEDTIME PRN PRN Reason: Insomnia Last Admin: 03/05/21 22:02 Dose: 6 mg Documented by: Methylprednisolone Sodium Succinate (Methylprednisolone Sodium Succinate 40 Mg/1 Ml Sdv) 40 mg IVPUSH Q8H [facility] Last Admin: 03/06/21 13:05 Dose: 40 mg Documented by: Pantoprazole Sodium (Pantoprazole 40 Mg Tab.Cr) 40 mg PO ACBREAKFAST [facility] Last Admin: 03/06/21 06:49 Dose: 40 mg Documented by: Budesonide/Formoterol [ Symbicort 160-4.5 Mcg] 2 each INH BID [facility] Last Admin: 03/06/21 08:15 Dose: Not Given Documented by: Tiotropium Elbert (Tiotropium Inhaler 18 Mcg Inhalation Powder Cap Kit Of 5) 18 mcg INH DAILY [facility] Last Admin: 03/06/21 08:17 Dose: 1 cap Documented by: Tramadol HCl (Tramadol 50 Mg Tab) 50 mg PO DAILY PRN PRN Reason: Pain Last Admin: 03/05/21 12:56 Dose: 50 mg Documented by: Discontinued Medications Albuterol/Ipratropium (Albuterol/Ipratropium 3.0-0.5 Mg/3 Ml Neb Soln) 3 ml NEB ONETIME ONE Stop: 03/02/21 12:45 Last Admin: 03/02/21 13:26 Dose: 3 ml Documented by: Albuterol/Ipratropium (Albuterol/Ipratropium 3.0-0.5 Mg/3 Ml Neb Soln) 3 ml NEB Q6H [facility] Last Admin: 03/03/21 05:08 Dose: Not Given Documented by: Azithromycin (Azithromycin 500 Mg Vial) 500 mg IV Q24H [facility] Last Admin: 03/03/21 05:09 Dose: Not Given Documented by: Azithromycin (Azithromycin 500 Mg Vial) Confirm Administered Dose 500 mg .ROUTE .STK-MED ONE Stop: 03/02/21 22:33 Last Admin: 03/02/21 23:28 Dose: Not Given Documented by: Ceftriaxone Sodium (Ceftriaxone 1 Gm Vial) 1 gm IVPUSH Q24H [facility] Lactated Ringer's (Ringers, Lactated) 1,000 mls @ 999 mls/hr IV ASDIRECTED [facility] Last Admin: 03/02/21 13:15 Dose: 999 mls/hr Documented by: Ampicillin Sodium/Sulbactam (Sodium 3 gm/ Sodium Chloride) 100 mls @ 200 mls/hr IV ONETIME ONE Stop: 03/02/21 13:24 Last Admin: 03/02/21 13:57 Dose: 200 mls/hr Documented by: Lactated Ringer's (Ringers, Lactated) 1,000 mls @ 125 mls/hr IV ASDIRECTED [facility] Last Admin: 03/04/21 08:47 Dose: 125 mls/hr Documented by: Ceftriaxone Sodium/Dextrose 1 (gm/ Premix) 50 mls @ 100 mls/hr IV ONETIME ONE Stop: 03/02/21 18:39 Last Admin: 03/03/21 05:10 Dose: Not Given Documented by: Iopamidol (Iopamidol 755 Mg/Ml 500 Ml Multipack Bottle) 100 ml IVPUSH ONETIME STA Stop: 03/02/21 15:33 Last Admin: 03/02/21 15:33 Dose: 100 ml Documented by: Pantoprazole Sodium (Pantoprazole 40 Mg Tab.Cr) 40 mg PO DAILY [facility] Last Admin: 03/05/21 09:26 Dose: 40 mg Documented by: Prednisone (Prednisone 20 Mg Tab) 50 mg PO DAILY [facility] Last Admin: 03/05/21 09:26 Dose: 50 mg Documented by: Tramadol HCl (Tramadol 50 Mg Tab) 50 mg PO ONETIME ONE Stop: 03/03/21 21:55 Last Admin: 03/04/21 00:06 Dose: Not Given Documented by: Tramadol HCl (Tramadol 50 Mg Tab) 25 mg PO ONETIME ONE Stop: 03/05/21 21:01 Last Admin: 03/05/21 22:02 Dose: 25 mg Documented by: - Exam General: Alert, Oriented, Cooperative HEENT: Mucous Membr. Moist/[place] Neck: Trachea Midline Lungs: Clear to Auscultation, Normal Respiratory Effort Cardiovascular: Regular Rate, Regular Rhythm, No Murmurs GI/Abdominal Exam: Normal Bowel Sounds, Soft, Non-Tender, No Organomegaly - Patient Data Lab Results Last 24 hrs: Laboratory Results - last 24 hr 03/06/21 03/06/21 Range/Units 05:30 05:30 WBC 5.85 (4.0-11.0) K/uL RBC 3.86 L (4.30-5.90) M/uL Hgb 11.8 L (12.0-16.0) g/dL Hct 36.1 (36.0-46.0) % MCV 93.5 (80.0-98.0) fL MCH 30.6 (27.0-32.0) pg MCHC 32.7 (31.0-37.0) g/dL RDW Std Deviation 47.1 (28.0-62.0) fl RDW Coeff of Murta[place] 14 (11.0-15.0) % Plt Count 254 (150-400) K/uL MPV 8.90 (7.40-12.00) fL Neut % (Auto) 85.7 H (48.0-80.0) % Lymph % (Auto) 9.9 L (16.0-40.0) % [place] % (Auto) 4.4 (0.0-15.0) % Eos % (Auto) 0.0 (0.0-7.0) % Baso % (Auto) 0.0 (0.0-1.5) % Neut # (Auto) 5.0 (1.4-5.7) K/uL Lymph # (Auto) 0.6 (0.6-2.4) K/uL [place] # (Auto) 0.3 (0.0-0.8) K/uL Eos # (Auto) 0.0 (0.0-0.7) K/uL Baso # (Auto) 0.0 (0.0-0.1) K/uL Nucleated RBC % 0.0 /100WBC Nucleated RBCs # 0 K/uL Sodium 144 (136-145) mmol/L Potassium 4.5 (3.5-5.1) mmol/L Chloride 103 (98-107) mmol/L Carbon Dioxide 31.4 (21.0-32.0) mmol/L BUN 13 (7.0-18.0) mg/dL Creatinine 0.7 (0.6-1.0) mg/dL Est Cr Clr Drug Dosing 65.90 mL/min Estimated GFR (MDRD) > 60.0 ml/min Glucose 136 H (74-106) mg/dL Calcium 8.8 (8.5-10.1) mg/dL Result Diagrams: 03/06/21 05:30 03/06/21 05:30 [place] Results Last 24 hrs: Microbiology 03/02/21 13:10 Aerobic Blood Culture - Preliminary Blood - Venous - Lab Draw NO GROWTH AFTER 4 DAYS Anaerobic Blood Culture - Final 03/02/21 12:51 Aerobic Blood Culture - Preliminary Blood - Venous NO GROWTH AFTER 4 DAYS Anaerobic Blood Culture - Preliminary NO GROWTH AFTER 4 DAYS Sepsis Event Note - Evaluation Sepsis Screening Result: No Definite Risk - Focused Exam Vital Signs: Vital Signs Temp Pulse Resp BP BP Pulse Ox 03/06/21 12:00 97.5 F 89 18 127/71 90 L 03/06/21 08:14 139/66 03/06/21 08:00 98.9 F 92 18 139/66 90 L 03/06/21 04:45 98.2 F 74 20 140/68 94 L - Problem List & Annotations (1) Hemophilia SNOMED Code(s): 90696662 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 Status: Acute (2) Anxiety SNOMED Code(s): 30159966 Code(s): F41.9 - ANXIETY DISORDER, UNSPECIFIED Status: Acute (3) Depression SNOMED Code(s): 77474073 Code(s): F32.A - DEPRESSION, UNSPECIFIED Status: Acute (4) Insomnia SNOMED Code(s): 035810133 Code(s): G47.00 - INSOMNIA, UNSPECIFIED Status: Acute (5) GERD (gastroesophageal reflux disease) SNOMED Code(s): 565596651 Code(s): K21.9 - GASTRO-ESOPHAGEAL REFLUX DISEASE WITHOUT ESOPHAGITIS Status: Acute (6) Pneumonia SNOMED Code(s): 368941186 Code(s): J18.9 - PNEUMONIA, UNSPECIFIED ORGANISM Status: Acute (7) COPD exacerbation SNOMED Code(s): 849218758, 498251629 Code(s): J44.1 - CHRONIC OBSTRUCTIVE PULMONARY DISEASE W (ACUTE) EXACERBATION Status: Acute (8) Weakness SNOMED Code(s): 69015014 Code(s): R53.1 - WEAKNESS Status: Acute - Problem List Review Problem List Initiated/Reviewed/Updated: Yes - My Orders Last 24 Hours: My Active Orders 03/06/21 07:30 Pantoprazole [ProTONIX] 40 mg PO ACBREAKFAST - Plan Plan:: 1. Community-acquired pneumonia -Continue with azithromycin 500 mg per IV route every 24 hours -Continue with Rocephin 1 g per IV route every 24 hours -Patient is currently on 1.5 L of oxygen saturating at 90%, continue to supply oxygen as needed -Daily CBC/CMP to check for white blood cell status and/or any abnormalities 2. Weakness -Physical therapy has come to work with the patient in order to build up her strength. The patient admits that exercises have been helping her, her shortness of breath and cough have decreased. Physical therapy will continue to work with this patient until discharge or cleared. 3. COPD -Duo nebs are on board 3 mL every 6 hours scheduled -Patient has been started on IV Solu-Medrol 40 mg per IV route every 8 hours. 4. Anxiety -Continue hydroxyzine 25 mg per oral route twice daily 5. Depression -Continue fluoxetine 20 mg per oral route OD 6. GERD -Continue pantoprazole 40 mg per oral route OD 7. Insomnia -Continue melatonin at bedtime 8. Hemophilia -Continue home prednisone dosage of 50 mg per oral OD 9. HTN -Patient has been started on amlodipine <Pina Henry - Last Filed: 03/08/21 23:14> - Patient Data Vitals - Most Recent: Last Vital Signs Temp 36.9 C 03/08/21 08:00 Pulse 88 03/08/21 08:00 Resp 21 H 03/08/21 08:00 BP 135/63 03/08/21 08:21 Pulse Ox 91 L 03/08/21 08:00 Lab Results Last 24 Hours: Laboratory Results - last 24 hr 03/08/21 03/08/21 Range/Units 05:50 05:50 WBC 10.68 (4.0-11.0) K/uL RBC 4.04 L (4.30-5.90) M/uL Hgb 12.3 (12.0-16.0) g/dL Hct 37.7 (36.0-46.0) % MCV 93.3 (80.0-98.0) fL MCH 30.4 (27.0-32.0) pg MCHC 32.6 (31.0-37.0) g/dL RDW Std Deviation 46.7 (28.0-62.0) fl RDW Coeff of Murtaza 14 (11.0-15.0) % Plt Count 277 (150-400) K/uL MPV 8.80 (7.40-12.00) fL Add Manual Diff YES Neutrophils % (Manual) 88 H (48.0-80.0) % Band Neutrophils % 2 % Lymphocytes % (Manual) 7 L (16.0-40.0) % Monocytes % (Manual) 3 (0.0-15.0) % Nucleated RBC % 0.0 /100WBC Absolute Seg Neuts 9.4 H (1.4-5.7) Band Neutrophils # 0.2 Lymphocytes # (Manual) 0.7 (0.6-2.4) Monocytes # (Manual) 0.3 (0.0-0.8) Nucleated RBCs # 0 K/uL Sodium 144 (136-145) mmol/L Potassium 4.4 (3.5-5.1) mmol/L Chloride 104 (98-107) mmol/L Carbon Dioxide 34.4 H (21.0-32.0) mmol/L BUN 20 H (7.0-18.0) mg/dL Creatinine 0.9 (0.6-1.0) mg/dL Est Cr Clr Drug Dosing 51.26 mL/min Estimated GFR (MDRD) > 60.0 ml/min Glucose 121 H (74-106) mg/dL Calcium 8.9 (8.5-10.1) mg/dL Total Bilirubin 0.3 (0.2-1.0) mg/dL AST 10 L (15-37) IU/L ALT 21 (14-63) IU/L Alkaline Phosphatase 66 (46-116) U/L Total Protein 5.9 L (6.4-8.2) g/dL Albumin 2.4 L (3.4-5.0) g/dL Globulin 3.5 (2.6-4.0) g/dL Albumin/Globulin Ratio 0.7 L (0.9-1.6) Med Orders - Current: Current Medications Discontinued Medications Albuterol/Ipratropium (Albuterol/Ipratropium 3.0-0.5 Mg/3 Ml Neb Soln) 3 ml NEB ONETIME ONE Stop: 03/02/21 12:45 Last Admin: 03/02/21 13:26 Dose: 3 ml Documented by: Albuterol/Ipratropium (Albuterol/Ipratropium 3.0-0.5 Mg/3 Ml Neb Soln) 3 ml NEB Q6H [facility] Last Admin: 03/03/21 05:08 Dose: Not Given Documented by: Albuterol/Ipratropium (Albuterol/Ipratropium 3.0-0.5 Mg/3 Ml Neb Soln) 3 ml NEB Q6HRRT [facility] Last Admin: 03/08/21 05:46 Dose: 3 ml Documented by: Amlodipine Besylate (Amlodipine 5 Mg Tab) 5 mg PO DAILY [facility] Last Admin: 03/08/21 08:21 Dose: 5 mg Documented by: Azithromycin (Azithromycin 500 Mg Vial) 500 mg IV Q24H [facility] Last Admin: 03/03/21 05:09 Dose: Not Given Documented by: Azithromycin (Azithromycin 500 Mg Vial) Confirm Administered Dose 500 mg .ROUTE .STK-MED ONE Stop: 03/02/21 22:33 Last Admin: 03/02/21 23:28 Dose: Not Given Documented by: Benzonatate (Benzonatate 100 Mg Cap) 100 mg PO Q6H PRN PRN Reason: Cough Last Admin: 03/07/21 21:11 Dose: 100 mg Documented by: Ceftriaxone Sodium (Ceftriaxone 1 Gm Vial) 1 gm IVPUSH Q24H [facility] Cholecalciferol (Cholecalciferol (Vitamin D3) 25 Mcg Tab) 125 mcg PO DAILY [facility] Last Admin: 03/08/21 09:00 Dose: Not Given Documented by: Docusate Sodium (Docusate Sodium 100 Mg Cap) 100 mg PO Q12H PRN PRN Reason: Constipation Last Admin: 03/07/21 21:14 Dose: 100 mg Documented by: Fluoxetine HCl (Fluoxetine 20 Mg Cap) 20 mg PO DAILY [facility] Last Admin: 03/08/21 08:22 Dose: 20 mg Documented by: Hydroxyzine Pamoate (Hydroxyzine Pamoate 25 Mg Cap) 25 mg PO BID PRN PRN Reason: Anxiety Last Admin: 03/07/21 21:11 Dose: 25 mg Documented by: Lactated Ringer's (Ringers, Lactated) 1,000 mls @ 999 mls/hr IV ASDIRECTED [facility] Last Admin: 03/02/21 13:15 Dose: 999 mls/hr Documented by: Ampicillin Sodium/Sulbactam (Sodium 3 gm/ Sodium Chloride) 100 mls @ 200 mls/hr IV ONETIME ONE Stop: 03/02/21 13:24 Last Admin: 03/02/21 13:57 Dose: 200 mls/hr Documented by: Lactated Ringer's (Ringers, Lactated) 1,000 mls @ 125 mls/hr IV ASDIRECTED [facility] Last Admin: 03/04/21 08:47 Dose: 125 mls/hr Documented by: Ceftriaxone Sodium/Dextrose 1 (gm/ Premix) 50 mls @ 100 mls/hr IV ONETIME ONE Stop: 03/02/21 18:39 Last Admin: 03/03/21 05:10 Dose: Not Given Documented by: Azithromycin 500 mg/ Sodium (Chloride) 250 mls @ 250 mls/hr IV DAILY [facility] Last Admin: 03/08/21 08:22 Dose: 250 mls/hr Documented by: Ceftriaxone Sodium/Dextrose 1 (gm/ Premix) 50 mls @ 100 mls/hr IV Q24H [facility] Last Admin: 03/07/21 20:03 Dose: 100 mls/hr Documented by: Iopamidol (Iopamidol 755 Mg/Ml 500 Ml Multipack Bottle) 100 ml IVPUSH ONETIME STA Stop: 03/02/21 15:33 Last Admin: 03/02/21 15:33 Dose: 100 ml Documented by: Melatonin (Melatonin 3 Mg Tab) 6 mg PO BEDTIME PRN PRN Reason: Insomnia Last Admin: 03/07/21 21:11 Dose: 6 mg Documented by: Methylprednisolone Sodium Succinate (Methylprednisolone Sodium Succinate 40 Mg/1 Ml Sdv) 40 mg IVPUSH Q8H [facility] Last Admin: 03/08/21 05:34 Dose: 40 mg Documented by: Pantoprazole Sodium (Pantoprazole 40 Mg Tab.Cr) 40 mg PO DAILY [facility] Last Admin: 03/05/21 09:26 Dose: 40 mg Documented by: Pantoprazole Sodium (Pantoprazole 40 Mg Tab.Cr) 40 mg PO ACBREAKFAST [facility] Last Admin: 03/08/21 08:22 Dose: 40 mg Documented by: Budesonide/Formoterol [ Symbicort 160-4.5 Mcg] 2 each INH BID [facility] Last Admin: 03/08/21 08:25 Dose: Not Given Documented by: Prednisone (Prednisone 20 Mg Tab) 50 mg PO DAILY [facility] Last Admin: 03/05/21 09:26 Dose: 50 mg Documented by: Tiotropium Elbert (Tiotropium Inhaler 18 Mcg Inhalation Powder Cap Kit Of 5) 18 mcg INH DAILY [facility] Last Admin: 03/08/21 08:25 Dose: 1 cap Documented by: Tramadol HCl (Tramadol 50 Mg Tab) 50 mg PO DAILY PRN PRN Reason: Pain Last Admin: 03/07/21 09:55 Dose: 50 mg Documented by: Tramadol HCl (Tramadol 50 Mg Tab) 50 mg PO ONETIME ONE Stop: 03/03/21 21:55 Last Admin: 03/04/21 00:06 Dose: Not Given Documented by: Tramadol HCl (Tramadol 50 Mg Tab) 25 mg PO ONETIME ONE Stop: 03/05/21 21:01 Last Admin: 03/05/21 22:02 Dose: 25 mg Documented by: - Patient Data Lab Results Last 24 hrs: Laboratory Results - last 24 hr 03/08/21 03/08/21 Range/Units 05:50 05:50 WBC 10.68 (4.0-11.0) K/uL RBC 4.04 L (4.30-5.90) M/uL Hgb 12.3 (12.0-16.0) g/dL Hct 37.7 (36.0-46.0) % MCV 93.3 (80.0-98.0) fL MCH 30.4 (27.0-32.0) pg MCHC 32.6 (31.0-37.0) g/dL RDW Std Deviation 46.7 (28.0-62.0) fl RDW Coeff of Murtaza 14 (11.0-15.0) % Plt Count 277 (150-400) K/uL MPV 8.80 (7.40-12.00) fL Add Manual Diff YES Neutrophils % (Manual) 88 H (48.0-80.0) % Band Neutrophils % 2 % Lymphocytes % (Manual) 7 L (16.0-40.0) % Monocytes % (Manual) 3 (0.0-15.0) % Nucleated RBC % 0.0 /100WBC Absolute Seg Neuts 9.4 H (1.4-5.7) Band Neutrophils # 0.2 Lymphocytes # (Manual) 0.7 (0.6-2.4) Monocytes # (Manual) 0.3 (0.0-0.8) Nucleated RBCs # 0 K/uL Sodium 144 (136-145) mmol/L Potassium 4.4 (3.5-5.1) mmol/L Chloride 104 (98-107) mmol/L Carbon Dioxide 34.4 H (21.0-32.0) mmol/L BUN 20 H (7.0-18.0) mg/dL Creatinine 0.9 (0.6-1.0) mg/dL Est Cr Clr Drug Dosing 51.26 mL/min Estimated GFR (MDRD) > 60.0 ml/min Glucose 121 H (74-106) mg/dL Calcium 8.9 (8.5-10.1) mg/dL Total Bilirubin 0.3 (0.2-1.0) mg/dL AST 10 L (15-37) IU/L ALT 21 (14-63) IU/L Alkaline Phosphatase 66 (46-116) U/L Total Protein 5.9 L (6.4-8.2) g/dL Albumin 2.4 L (3.4-5.0) g/dL Globulin 3.5 (2.6-4.0) g/dL Albumin/Globulin Ratio 0.7 L (0.9-1.6) Result Diagrams: 03/08/21 05:50 03/08/21 05:50 - Problem List & Annotations (1) Anxiety SNOMED Code(s): 44943915 Code(s): F41.9 - ANXIETY DISORDER, UNSPECIFIED Status: Acute (2) Depression SNOMED Code(s): 13690993 Code(s): F32.A - DEPRESSION, UNSPECIFIED Status: Acute (3) GERD (gastroesophageal reflux disease) SNOMED Code(s): 315545396 Code(s): K21.9 - GASTRO-ESOPHAGEAL REFLUX DISEASE WITHOUT ESOPHAGITIS Status: Acute (4) Pneumonia SNOMED Code(s): 797866253 Code(s): J18.9 - PNEUMONIA, UNSPECIFIED ORGANISM Status: Acute (5) Respiratory failure with hypoxia SNOMED Code(s): 36846191947062321 Code(s): J96.91 - RESPIRATORY FAILURE, UNSPECIFIED WITH HYPOXIA Status: Acute (6) Acquired hemophilia SNOMED Code(s): 146223440 Code(s): D68.311 - ACQUIRED HEMOPHILIA Status: Acute (7) COPD exacerbation SNOMED Code(s): 180546894, 170724844 Code(s): J44.1 - CHRONIC OBSTRUCTIVE PULMONARY DISEASE W (ACUTE) EXACERBATION Status: Acute (8) HTN (hypertension) SNOMED Code(s): 85537643 Code(s): I10 - ESSENTIAL (PRIMARY) HYPERTENSION Status: Acute - Plan Plan:: I have seen and evaluated the patient and agree with the residents note unless specified in my note
[2021-03-06] MEDS: traMADol 50 MG Tab PO PRN (17:27)
[2021-03-06] MEDS: cefTRIAXone 1 GM in Premix Bag 1 BAG IV SCH (19:54)
[2021-03-06] MEDS: Docusate Sodium 100 MG Cap PO PRN (21:48)
[2021-03-06] MEDS: Benzonatate 100 MG Cap PO PRN (21:48)
[2021-03-06] MEDS: Melatonin 3 MG Tab PO PRN (21:48)
[2021-03-06] MEDS: hydrOXYzine Pamoate 25 MG Cap PO PRN (21:48)
[2021-03-07] MEDS: methylPREDNISolone Sodium Succinate 40 MG/1 ML SDV IVPUSH SCH ×3 (05:46→21:10)
[2021-03-07] MEDS: Albuterol/Ipratropium 3.0-0.5 MG/3 ML Neb Soln NEB SCH ×3 (05:58→17:00)
[2021-03-07] MEDS: Pantoprazole 40 MG Tab.CR PO SCH (06:30)
[2021-03-07 06:41] LABS: BLOOD UREA NITROGEN,BUN 17 mg/dL (7.0-18.0); CARBON DIOXIDE,CO2 33.8 mmol/L (21.0-32.0); CHLORIDE,CL 104 mmol/L (98-107); GLUCOSE RANDOM 129 mg/dL (74-106); POTASSIUM,K 4.3 mmol/L (3.5-5.1); SODIUM,NA 142 mmol/L (136-145)
[2021-03-07] MEDS: Cholecalciferol (Vitamin D3) 25 MCG Tab PO SCH (09:13)
[2021-03-07] MEDS: FLUoxetine 20 MG Cap PO SCH (09:14)
[2021-03-07] MEDS: Tiotropium Inhaler 18 MCG Inhalation Powder Cap Kit of 5 INH SCH (09:15)
[2021-03-07] MEDS: Azithromycin 500 MG in Sodium Chloride 0.9% 250 ML IV SCH (09:15)
[2021-03-07] MEDS: Budesonide/Formoterol [Symbicort 160-4.5 Mcg] INH SCH ×2 (09:17→20:33)
[2021-03-07] MEDS: amLODIPine 5 MG Tab PO SCH (09:17)
[2021-03-07] MEDS: traMADol 50 MG Tab PO PRN (09:55)
--- NOTE | 2021-03-07 14:06 | PCM.PN ---
<Holli Valle - Last Filed: 03/07/21 14:01> - General Info Date of Service: 03/07/21 Admission Dx/Problem (Free Text): Admission Diagnosis/Problem Admission Diagnosis/Problem Community acquired pneumonia Subjective Update: 60-year-old female on day 6 of service. Past medical history of COPD oxygen dependent on 1.5 L at home. Acquired hemophilia. Patient was admitted for community-acquired pneumonia. She has been working with physical therapy and continues to experience fatigue and exhaustion. Patient will work with physical therapy today for stair exercises. She continues to be short of breath at rest. Discussed smoking cessation with patient. Currently saturating at 90% on 1.5 L nasal cannula. Tolerating diet. No nausea or vomiting. Patient had 2 bowel movements yesterday. - Review of Systems General: Denies: Fever HEENT: Denies: Headaches, Sinus Congestion Pulmonary: Reports: Shortness of Breath. Denies: Pleuritic Chest Pain Cardiovascular: Denies: Chest Pain, Palpitations Gastrointestinal: Denies: Abdominal Pain, Constipation, Diarrhea, Nausea, Vomiting Genitourinary: Denies: Dysuria Musculoskeletal: Denies: Leg Pain Skin: Denies: Cyanosis Neurological: Denies: Confusion, Headache, Numbness, Syncope - Patient Data Vitals - Most Recent: Last Vital Signs Temp 96.4 F L 03/07/21 12:00 Pulse 78 03/07/21 12:00 Resp 18 03/07/21 13:35 BP 146/79 H 03/07/21 12:00 Pulse Ox 90 L 03/07/21 13:35 Weight - Most Recent: 55.474 kg I&O - Last 24 Hours: Intake & Output 03/06/21 03/07/21 03/07/21 22:59 06:59 14:59 Intake Total 950 1300 250 Output Total 750 1400 Balance 200 -100 250 Lab Results Last 24 Hours: Laboratory Results - last 24 hr 03/07/21 03/07/21 Range/Units 05:20 05:20 WBC 11.25 H (4.0-11.0) K/uL RBC 3.84 L (4.30-5.90) M/uL Hgb 11.7 L (12.0-16.0) g/dL Hct 35.7 L (36.0-46.0) % MCV 93.0 (80.0-98.0) fL MCH 30.5 (27.0-32.0) pg MCHC 32.8 (31.0-37.0) g/dL RDW Std Deviation 46.5 (28.0-62.0) fl RDW Coeff of Murtaza 14 (11.0-15.0) % Plt Count 270 (150-400) K/uL MPV 8.80 (7.40-12.00) fL Add Manual Diff YES Neutrophils % (Manual) 78 (48.0-80.0) % Band Neutrophils % 1 % Lymphocytes % (Manual) 11 L (16.0-40.0) % Monocytes % (Manual) 8 (0.0-15.0) % Basophils % (Manual) 2 H (0.0-1.5) % Nucleated RBC % 0.0 /100WBC Absolute Seg Neuts 8.8 H (1.4-5.7) Band Neutrophils # 0.1 Lymphocytes # (Manual) 1.2 (0.6-2.4) Monocytes # (Manual) 0.9 H (0.0-0.8) Basophils # (Manual) 0.2 H (0.0-0.1) Nucleated RBCs # 0 K/uL Sodium 142 (136-145) mmol/L Potassium 4.3 (3.5-5.1) mmol/L Chloride 104 (98-107) mmol/L Carbon Dioxide 33.8 H (21.0-32.0) mmol/L BUN 17 (7.0-18.0) mg/dL Creatinine 0.8 (0.6-1.0) mg/dL Est Cr Clr Drug Dosing 57.67 mL/min Estimated GFR (MDRD) > 60.0 ml/min Glucose 129 H (74-106) mg/dL Calcium 9.0 (8.5-10.1) mg/dL Total Bilirubin 0.3 (0.2-1.0) mg/dL AST 10 L (15-37) IU/L ALT 19 (14-63) IU/L Alkaline Phosphatase 67 (46-116) U/L Total Protein 5.6 L (6.4-8.2) g/dL Albumin 2.4 L (3.4-5.0) g/dL Globulin 3.2 (2.6-4.0) g/dL Albumin/Globulin Ratio 0.8 L (0.9-1.6) [place] Results Last 24 Hours: Microbiology 03/02/21 13:10 Aerobic Blood Culture - Final Blood - Venous - Lab Draw NO GROWTH AFTER 5 DAYS Anaerobic Blood Culture - Final 03/02/21 12:51 Aerobic Blood Culture - Final Blood - Venous NO GROWTH AFTER 5 DAYS Anaerobic Blood Culture - Final NO GROWTH AFTER 5 DAYS Med Orders - Current: Current Medications Albuterol/Ipratropium (Albuterol/Ipratropium 3.0-0.5 Mg/3 Ml Neb Soln) 3 ml NEB Q6HRRT [facility] Last Admin: 03/07/21 11:14 Dose: 3 ml Documented by: Amlodipine Besylate (Amlodipine 5 Mg Tab) 5 mg PO DAILY [facility] Last Admin: 03/07/21 09:17 Dose: 5 mg Documented by: Benzonatate (Benzonatate 100 Mg Cap) 100 mg PO Q6H PRN PRN Reason: Cough Last Admin: 03/06/21 21:48 Dose: 100 mg Documented by: Cholecalciferol (Cholecalciferol (Vitamin D3) 25 Mcg Tab) 125 mcg PO DAILY [facility] Last Admin: 03/07/21 09:13 Dose: 125 mcg Documented by: Docusate Sodium (Docusate Sodium 100 Mg Cap) 100 mg PO Q12H PRN PRN Reason: Constipation Last Admin: 03/06/21 21:48 Dose: 100 mg Documented by: Fluoxetine HCl (Fluoxetine 20 Mg Cap) 20 mg PO DAILY [facility] Last Admin: 03/07/21 09:14 Dose: 20 mg Documented by: Hydroxyzine Pamoate (Hydroxyzine Pamoate 25 Mg Cap) 25 mg PO BID PRN PRN Reason: Anxiety Last Admin: 03/06/21 21:48 Dose: 25 mg Documented by: Azithromycin 500 mg/ Sodium (Chloride) 250 mls @ 250 mls/hr IV DAILY [facility] Last Admin: 03/07/21 09:15 Dose: 250 mls/hr Documented by: Ceftriaxone Sodium/Dextrose 1 (gm/ Premix) 50 mls @ 100 mls/hr IV Q24H [facility] Last Admin: 03/06/21 19:54 Dose: 100 mls/hr Documented by: Melatonin (Melatonin 3 Mg Tab) 6 mg PO BEDTIME PRN PRN Reason: Insomnia Last Admin: 03/06/21 21:48 Dose: 6 mg Documented by: Methylprednisolone Sodium Succinate (Methylprednisolone Sodium Succinate 40 Mg/1 Ml Sdv) 40 mg IVPUSH Q8H [facility] Last Admin: 03/07/21 13:50 Dose: 40 mg Documented by: Pantoprazole Sodium (Pantoprazole 40 Mg Tab.Cr) 40 mg PO ACBREAKFAST [facility] Last Admin: 03/07/21 06:30 Dose: 40 mg Documented by: Budesonide/Formoterol [ Symbicort 160-4.5 Mcg] 2 each INH BID [facility] Last Admin: 03/07/21 09:17 Dose: Not Given Documented by: Tiotropium Guild (Tiotropium Inhaler 18 Mcg Inhalation Powder Cap Kit Of 5) 18 mcg INH DAILY [facility] Last Admin: 03/07/21 09:15 Dose: 1 cap Documented by: Tramadol HCl (Tramadol 50 Mg Tab) 50 mg PO DAILY PRN PRN Reason: Pain Last Admin: 03/07/21 09:55 Dose: 50 mg Documented by: Discontinued Medications Albuterol/Ipratropium (Albuterol/Ipratropium 3.0-0.5 Mg/3 Ml Neb Soln) 3 ml NEB ONETIME ONE Stop: 03/02/21 12:45 Last Admin: 03/02/21 13:26 Dose: 3 ml Documented by: Albuterol/Ipratropium (Albuterol/Ipratropium 3.0-0.5 Mg/3 Ml Neb Soln) 3 ml NEB Q6H [facility] Last Admin: 03/03/21 05:08 Dose: Not Given Documented by: Azithromycin (Azithromycin 500 Mg Vial) 500 mg IV Q24H [facility] Last Admin: 03/03/21 05:09 Dose: Not Given Documented by: Azithromycin (Azithromycin 500 Mg Vial) Confirm Administered Dose 500 mg .ROUTE .STK-MED ONE Stop: 03/02/21 22:33 Last Admin: 03/02/21 23:28 Dose: Not Given Documented by: Ceftriaxone Sodium (Ceftriaxone 1 Gm Vial) 1 gm IVPUSH Q24H [facility] Lactated Ringer's (Ringers, Lactated) 1,000 mls @ 999 mls/hr IV ASDIRECTED [facility] Last Admin: 03/02/21 13:15 Dose: 999 mls/hr Documented by: Ampicillin Sodium/Sulbactam (Sodium 3 gm/ Sodium Chloride) 100 mls @ 200 mls/hr IV ONETIME ONE Stop: 03/02/21 13:24 Last Admin: 03/02/21 13:57 Dose: 200 mls/hr Documented by: Lactated Ringer's (Ringers, Lactated) 1,000 mls @ 125 mls/hr IV ASDIRECTED [facility] Last Admin: 03/04/21 08:47 Dose: 125 mls/hr Documented by: Ceftriaxone Sodium/Dextrose 1 (gm/ Premix) 50 mls @ 100 mls/hr IV ONETIME ONE Stop: 03/02/21 18:39 Last Admin: 03/03/21 05:10 Dose: Not Given Documented by: Iopamidol (Iopamidol 755 Mg/Ml 500 Ml Multipack Bottle) 100 ml IVPUSH ONETIME STA Stop: 03/02/21 15:33 Last Admin: 03/02/21 15:33 Dose: 100 ml Documented by: Pantoprazole Sodium (Pantoprazole 40 Mg Tab.Cr) 40 mg PO DAILY [facility] Last Admin: 03/05/21 09:26 Dose: 40 mg Documented by: Prednisone (Prednisone 20 Mg Tab) 50 mg PO DAILY [facility] Last Admin: 03/05/21 09:26 Dose: 50 mg Documented by: Tramadol HCl (Tramadol 50 Mg Tab) 50 mg PO ONETIME ONE Stop: 03/03/21 21:55 Last Admin: 03/04/21 00:06 Dose: Not Given Documented by: Tramadol HCl (Tramadol 50 Mg Tab) 25 mg PO ONETIME ONE Stop: 03/05/21 21:01 Last Admin: 03/05/21 22:02 Dose: 25 mg Documented by: - Exam Quality Assessment: Supplemental Oxygen General: Alert, Oriented, Cooperative HEENT: Pupils Equal, Pupils Reactive Neck: Supple, Trachea Midline Lungs: Decreased Breath Sounds. No: Crackles Cardiovascular: Regular Rate, Regular Rhythm, No Murmurs GI/Abdominal Exam: Normal Bowel Sounds, Soft, Non-Tender Extremities: Normal Inspection, Non-Tender, No Pedal Edema. No: Telma's Sign, Leg Pain Peripheral Pulses: 2+: Posterior Tibial (L), Posterior Tibial (R) Skin: Warm, Dry, Intact Wound/Incisions: Healing Well Neurological: No New Focal Deficit - Patient Data Lab Results Last 24 hrs: Laboratory Results - last 24 hr 03/07/21 03/07/21 Range/Units 05:20 05:20 WBC 11.25 H (4.0-11.0) K/uL RBC 3.84 L (4.30-5.90) M/uL Hgb 11.7 L (12.0-16.0) g/dL Hct 35.7 L (36.0-46.0) % MCV 93.0 (80.0-98.0) fL MCH 30.5 (27.0-32.0) pg MCHC 32.8 (31.0-37.0) g/dL RDW Std Deviation 46.5 (28.0-62.0) fl RDW Coeff of Murtaza 14 (11.0-15.0) % Plt Count 270 (150-400) K/uL MPV 8.80 (7.40-12.00) fL Add Manual Diff YES Neutrophils % (Manual) 78 (48.0-80.0) % Band Neutrophils % 1 % Lymphocytes % (Manual) 11 L (16.0-40.0) % Monocytes % (Manual) 8 (0.0-15.0) % Basophils % (Manual) 2 H (0.0-1.5) % Nucleated RBC % 0.0 /100WBC Absolute Seg Neuts 8.8 H (1.4-5.7) Band Neutrophils # 0.1 Lymphocytes # (Manual) 1.2 (0.6-2.4) Monocytes # (Manual) 0.9 H (0.0-0.8) Basophils # (Manual) 0.2 H (0.0-0.1) Nucleated RBCs # 0 K/uL Sodium 142 (136-145) mmol/L Potassium 4.3 (3.5-5.1) mmol/L Chloride 104 (98-107) mmol/L Carbon Dioxide 33.8 H (21.0-32.0) mmol/L BUN 17 (7.0-18.0) mg/dL Creatinine 0.8 (0.6-1.0) mg/dL Est Cr Clr Drug Dosing 57.67 mL/min Estimated GFR (MDRD) > 60.0 ml/min Glucose 129 H (74-106) mg/dL Calcium 9.0 (8.5-10.1) mg/dL Total Bilirubin 0.3 (0.2-1.0) mg/dL AST 10 L (15-37) IU/L ALT 19 (14-63) IU/L Alkaline Phosphatase 67 (46-116) U/L Total Protein 5.6 L (6.4-8.2) g/dL Albumin 2.4 L (3.4-5.0) g/dL Globulin 3.2 (2.6-4.0) g/dL Albumin/Globulin Ratio 0.8 L (0.9-1.6) Result Diagrams: 03/07/21 05:20 03/07/21 05:20 [place] Results Last 24 hrs: Microbiology 03/02/21 13:10 Aerobic Blood Culture - Final Blood - Venous - Lab Draw NO GROWTH AFTER 5 DAYS Anaerobic Blood Culture - Final 03/02/21 12:51 Aerobic Blood Culture - Final Blood - Venous NO GROWTH AFTER 5 DAYS Anaerobic Blood Culture - Final NO GROWTH AFTER 5 DAYS Sepsis Event Note - Evaluation Sepsis Screening Result: No Definite Risk - Focused Exam Vital Signs: Vital Signs Temp Pulse Resp BP BP Pulse Ox 03/07/21 13:35 18 90 L 03/07/21 12:00 96.4 F L 78 20 146/79 H 87 L 03/07/21 09:17 142/73 H 03/07/21 08:50 97.7 F 79 22 H 142/73 H 95 03/07/21 04:00 98.5 F 80 19 139/63 95 - Problem List Review Problem List Initiated/Reviewed/Updated: Yes - Plan Plan:: 1. Community-acquired pneumonia -Continue with azithromycin 500 mg per IV route every 24 hours -Continue with Rocephin 1 g per IV route every 24 hours -Patient is currently on 1.5 L of oxygen saturating at 90%, continue to supply oxygen as needed -Daily CBC/CMP to check for white blood cell status and/or any abnormalities 2. Weakness -Physical therapy has come to work with the patient in order to build up her strength. The patient admits that exercises have been helping her, her pradip rtness of breath and cough have decreased. Physical therapy will continue to work with this patient until discharge or cleared. 3. COPD -Duo nebs are on board 3 mL every 6 hours scheduled -Patient has been started on IV Solu-Medrol 40 mg per IV route every 8 hours. 4. Anxiety -Continue hydroxyzine 25 mg per oral route twice daily 5. Depression -Continue fluoxetine 20 mg per oral route OD 6. GERD -Continue pantoprazole 40 mg per oral route OD 7. Insomnia -Continue melatonin at bedtime 8. Hemophilia -Continue home prednisone dosage of 50 mg per oral OD 9. HTN -Continue amlodipine <CarlPina - Last Filed: 03/08/21 23:16> - Patient Data Vitals - Most Recent: Last Vital Signs Temp 36.9 C 03/08/21 08:00 Pulse 88 03/08/21 08:00 Resp 21 H 03/08/21 08:00 BP 135/63 03/08/21 08:21 Pulse Ox 91 L 03/08/21 08:00 Lab Results Last 24 Hours: Laboratory Results - last 24 hr 03/08/21 03/08/21 Range/Units 05:50 05:50 WBC 10.68 (4.0-11.0) K/uL RBC 4.04 L (4.30-5.90) M/uL Hgb 12.3 (12.0-16.0) g/dL Hct 37.7 (36.0-46.0) % MCV 93.3 (80.0-98.0) fL MCH 30.4 (27.0-32.0) pg MCHC 32.6 (31.0-37.0) g/dL RDW Std Deviation 46.7 (28.0-62.0) fl RDW Coeff of Murtaza 14 (11.0-15.0) % Plt Count 277 (150-400) K/uL MPV 8.80 (7.40-12.00) fL Add Manual Diff YES Neutrophils % (Manual) 88 H (48.0-80.0) % Band Neutrophils % 2 % Lymphocytes % (Manual) 7 L (16.0-40.0) % Monocytes % (Manual) 3 (0.0-15.0) % Nucleated RBC % 0.0 /100WBC Absolute Seg Neuts 9.4 H (1.4-5.7) Band Neutrophils # 0.2 Lymphocytes # (Manual) 0.7 (0.6-2.4) Monocytes # (Manual) 0.3 (0.0-0.8) Nucleated RBCs # 0 K/uL Sodium 144 (136-145) mmol/L Potassium 4.4 (3.5-5.1) mmol/L Chloride 104 (98-107) mmol/L Carbon Dioxide 34.4 H (21.0-32.0) mmol/L BUN 20 H (7.0-18.0) mg/dL Creatinine 0.9 (0.6-1.0) mg/dL Est Cr Clr Drug Dosing 51.26 mL/min Estimated GFR (MDRD) > 60.0 ml/min Glucose 121 H (74-106) mg/dL Calcium 8.9 (8.5-10.1) mg/dL Total Bilirubin 0.3 (0.2-1.0) mg/dL AST 10 L (15-37) IU/L ALT 21 (14-63) IU/L Alkaline Phosphatase 66 (46-116) U/L Total Protein 5.9 L (6.4-8.2) g/dL Albumin 2.4 L (3.4-5.0) g/dL Globulin 3.5 (2.6-4.0) g/dL Albumin/Globulin Ratio 0.7 L (0.9-1.6) Med Orders - Current: Current Medications Discontinued Medications Albuterol/Ipratropium (Albuterol/Ipratropium 3.0-0.5 Mg/3 Ml Neb Soln) 3 ml NEB ONETIME ONE Stop: 03/02/21 12:45 Last Admin: 03/02/21 13:26 Dose: 3 ml Documented by: Albuterol/Ipratropium (Albuterol/Ipratropium 3.0-0.5 Mg/3 Ml Neb Soln) 3 ml NEB Q6H [facility] Last Admin: 03/03/21 05:08 Dose: Not Given Documented by: Albuterol/Ipratropium (Albuterol/Ipratropium 3.0-0.5 Mg/3 Ml Neb Soln) 3 ml NEB Q6HRRT [facility] Last Admin: 03/08/21 05:46 Dose: 3 ml Documented by: Amlodipine Besylate (Amlodipine 5 Mg Tab) 5 mg PO DAILY [facility] Last Admin: 03/08/21 08:21 Dose: 5 mg Documented by: Azithromycin (Azithromycin 500 Mg Vial) 500 mg IV Q24H [facility] Last Admin: 03/03/21 05:09 Dose: Not Given Documented by: Azithromycin (Azithromycin 500 Mg Vial) Confirm Administered Dose 500 mg .ROUTE .STK-MED ONE Stop: 03/02/21 22:33 Last Admin: 03/02/21 23:28 Dose: Not Given Documented by: Benzonatate (Benzonatate 100 Mg Cap) 100 mg PO Q6H PRN PRN Reason: Cough Last Admin: 03/07/21 21:11 Dose: 100 mg Documented by: Ceftriaxone Sodium (Ceftriaxone 1 Gm Vial) 1 gm IVPUSH Q24H [facility] Cholecalciferol (Cholecalciferol (Vitamin D3) 25 Mcg Tab) 125 mcg PO DAILY [facility] Last Admin: 03/08/21 09:00 Dose: Not Given Documented by: Docusate Sodium (Docusate Sodium 100 Mg Cap) 100 mg PO Q12H PRN PRN Reason: Constipation Last Admin: 03/07/21 21:14 Dose: 100 mg Documented by: Fluoxetine HCl (Fluoxetine 20 Mg Cap) 20 mg PO DAILY [facility] Last Admin: 03/08/21 08:22 Dose: 20 mg Documented by: Hydroxyzine Pamoate (Hydroxyzine Pamoate 25 Mg Cap) 25 mg PO BID PRN PRN Reason: Anxiety Last Admin: 03/07/21 21:11 Dose: 25 mg Documented by: Lactated Ringer's (Ringers, Lactated) 1,000 mls @ 999 mls/hr IV ASDIRECTED [facility] Last Admin: 03/02/21 13:15 Dose: 999 mls/hr Documented by: Ampicillin Sodium/Sulbactam (Sodium 3 gm/ Sodium Chloride) 100 mls @ 200 mls/hr IV ONETIME ONE Stop: 03/02/21 13:24 Last Admin: 03/02/21 13:57 Dose: 200 mls/hr Documented by: Lactated Ringer's (Ringers, Lactated) 1,000 mls @ 125 mls/hr IV ASDIRECTED [facility] Last Admin: 03/04/21 08:47 Dose: 125 mls/hr Documented by: Ceftriaxone Sodium/Dextrose 1 (gm/ Premix) 50 mls @ 100 mls/hr IV ONETIME ONE Stop: 03/02/21 18:39 Last Admin: 03/03/21 05:10 Dose: Not Given Documented by: Azithromycin 500 mg/ Sodium (Chloride) 250 mls @ 250 mls/hr IV DAILY [facility] Last Admin: 03/08/21 08:22 Dose: 250 mls/hr Documented by: Ceftriaxone Sodium/Dextrose 1 (gm/ Premix) 50 mls @ 100 mls/hr IV Q24H [facility] Last Admin: 03/07/21 20:03 Dose: 100 mls/hr Documented by: Iopamidol (Iopamidol 755 Mg/Ml 500 Ml Multipack Bottle) 100 ml IVPUSH ONETIME STA Stop: 03/02/21 15:33 Last Admin: 03/02/21 15:33 Dose: 100 ml Documented by: Melatonin (Melatonin 3 Mg Tab) 6 mg PO BEDTIME PRN PRN Reason: Insomnia Last Admin: 03/07/21 21:11 Dose: 6 mg Documented by: Methylprednisolone Sodium Succinate (Methylprednisolone Sodium Succinate 40 Mg/1 Ml Sdv) 40 mg IVPUSH Q8H [facility] Last Admin: 03/08/21 05:34 Dose: 40 mg Documented by: Pantoprazole Sodium (Pantoprazole 40 Mg Tab.Cr) 40 mg PO DAILY [facility] Last Admin: 03/05/21 09:26 Dose: 40 mg Documented by: Pantoprazole Sodium (Pantoprazole 40 Mg Tab.Cr) 40 mg PO ACBREAKFAST [facility] Last Admin: 03/08/21 08:22 Dose: 40 mg Documented by: Budesonide/Formoterol [ Symbicort 160-4.5 Mcg] 2 each INH BID [facility] Last Admin: 03/08/21 08:25 Dose: Not Given Documented by: Prednisone (Prednisone 20 Mg Tab) 50 mg PO DAILY [facility] Last Admin: 03/05/21 09:26 Dose: 50 mg Documented by: Tiotropium Guild (Tiotropium Inhaler 18 Mcg Inhalation Powder Cap Kit Of 5) 18 mcg INH DAILY [facility] Last Admin: 03/08/21 08:25 Dose: 1 cap Documented by: Tramadol HCl (Tramadol 50 Mg Tab) 50 mg PO DAILY PRN PRN Reason: Pain Last Admin: 03/07/21 09:55 Dose: 50 mg Documented by: Tramadol HCl (Tramadol 50 Mg Tab) 50 mg PO ONETIME ONE Stop: 03/03/21 21:55 Last Admin: 03/04/21 00:06 Dose: Not Given Documented by: Tramadol HCl (Tramadol 50 Mg Tab) 25 mg PO ONETIME ONE Stop: 03/05/21 21:01 Last Admin: 03/05/21 22:02 Dose: 25 mg Documented by: - Patient Data Lab Results Last 24 hrs: Laboratory Results - last 24 hr 03/08/21 03/08/21 Range/Units 05:50 05:50 WBC 10.68 (4.0-11.0) K/uL RBC 4.04 L (4.30-5.90) M/uL Hgb 12.3 (12.0-16.0) g/dL Hct 37.7 (36.0-46.0) % MCV 93.3 (80.0-98.0) fL MCH 30.4 (27.0-32.0) pg MCHC 32.6 (31.0-37.0) g/dL RDW Std Deviation 46.7 (28.0-62.0) fl RDW Coeff of Murtaza 14 (11.0-15.0) % Plt Count 277 (150-400) K/uL MPV 8.80 (7.40-12.00) fL Add Manual Diff YES Neutrophils % (Manual) 88 H (48.0-80.0) % Band Neutrophils % 2 % Lymphocytes % (Manual) 7 L (16.0-40.0) % Monocytes % (Manual) 3 (0.0-15.0) % Nucleated RBC % 0.0 /100WBC Absolute Seg Neuts 9.4 H (1.4-5.7) Band Neutrophils # 0.2 Lymphocytes # (Manual) 0.7 (0.6-2.4) Monocytes # (Manual) 0.3 (0.0-0.8) Nucleated RBCs # 0 K/uL Sodium 144 (136-145) mmol/L Potassium 4.4 (3.5-5.1) mmol/L Chloride 104 (98-107) mmol/L Carbon Dioxide 34.4 H (21.0-32.0) mmol/L BUN 20 H (7.0-18.0) mg/dL Creatinine 0.9 (0.6-1.0) mg/dL Est Cr Clr Drug Dosing 51.26 mL/min Estimated GFR (MDRD) > 60.0 ml/min Glucose 121 H (74-106) mg/dL Calcium 8.9 (8.5-10.1) mg/dL Total Bilirubin 0.3 (0.2-1.0) mg/dL AST 10 L (15-37) IU/L ALT 21 (14-63) IU/L Alkaline Phosphatase 66 (46-116) U/L Total Protein 5.9 L (6.4-8.2) g/dL Albumin 2.4 L (3.4-5.0) g/dL Globulin 3.5 (2.6-4.0) g/dL Albumin/Globulin Ratio 0.7 L (0.9-1.6) Result Diagrams: 03/08/21 05:50 03/08/21 05:50 - Problem List & Annotations (1) Anxiety SNOMED Code(s): 79306711 Code(s): F41.9 - ANXIETY DISORDER, UNSPECIFIED Status: Acute (2) Depression SNOMED Code(s): 53235344 Code(s): F32.A - DEPRESSION, UNSPECIFIED Status: Acute (3) GERD (gastroesophageal reflux disease) SNOMED Code(s): 895633096 Code(s): K21.9 - GASTRO-ESOPHAGEAL REFLUX DISEASE WITHOUT ESOPHAGITIS Status: Acute (4) Pneumonia SNOMED Code(s): 528093163 Code(s): J18.9 - PNEUMONIA, UNSPECIFIED ORGANISM Status: Acute (5) Respiratory failure with hypoxia SNOMED Code(s): 00319263357571588 Code(s): J96.91 - RESPIRATORY FAILURE, UNSPECIFIED WITH HYPOXIA Status: Acute (6) Acquired hemophilia SNOMED Code(s): 636355954 Code(s): D68.311 - ACQUIRED HEMOPHILIA Status: Acute (7) COPD exacerbation SNOMED Code(s): 635822597, 333633498 Code(s): J44.1 - CHRONIC OBSTRUCTIVE PULMONARY DISEASE W (ACUTE) EXACERBATION Status: Acute (8) HTN (hypertension) SNOMED Code(s): 61521430 Code(s): I10 - ESSENTIAL (PRIMARY) HYPERTENSION Status: Acute - Plan Plan:: I have seen and evaluated the patient and agree with the residents note unless specified in my note
[2021-03-07] MEDS: cefTRIAXone 1 GM in Premix Bag 1 BAG IV SCH (20:03)
[2021-03-07] MEDS: hydrOXYzine Pamoate 25 MG Cap PO PRN (21:11)
[2021-03-07] MEDS: Melatonin 3 MG Tab PO PRN (21:11)
[2021-03-07] MEDS: Benzonatate 100 MG Cap PO PRN (21:11)
[2021-03-07] MEDS: Docusate Sodium 100 MG Cap PO PRN (21:14)
[2021-03-08] MEDS: Albuterol/Ipratropium 3.0-0.5 MG/3 ML Neb Soln NEB SCH ×2 (00:40→05:46)
[2021-03-08] MEDS: methylPREDNISolone Sodium Succinate 40 MG/1 ML SDV IVPUSH SCH (05:34)
[2021-03-08 06:44] LABS: BLOOD UREA NITROGEN,BUN 20 mg/dL (7.0-18.0); CARBON DIOXIDE,CO2 34.4 mmol/L (21.0-32.0); CHLORIDE,CL 104 mmol/L (98-107); GLUCOSE RANDOM 121 mg/dL (74-106); POTASSIUM,K 4.4 mmol/L (3.5-5.1); SODIUM,NA 144 mmol/L (136-145)
--- NOTE | 2021-03-08 07:52 | PCM.DCSUM1 ---
<Holli Valle - Last Filed: 03/08/21 11:41> Discharge Summary - Hospital Course Free Text/Narrative:: 60-year-old female with a history of COPD oxygen dependent on 1.5 L at home was admitted for community-acquired pneumonia. Patient was treated with azithromycin and Rocephin. Patient required physical therapy for weakness. She participated in different exercises which improved her breathing. Patient is a smoker and smoking cessation education was provided. Patient agreed to attempt to quit. Refused medical therapy assistance. Patient required 1.5 L of oxygen at rest. Patient received amlodipine for hypertension in the hospital. Patient was receiving Solu-Medrol and duo nebs. 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 Patient stable for discharge. Patient given prescription for 5 days of Levaquin and provided instructions for prednisone taper. Patient to follow-up with shuttler car regarding ongoing prednisone use. - Discharge Data Discharge Date: 03/08/21 Discharge Disposition: Home, Home Health Agency 06 Condition: Good - Referral to Home Health Date of Face to Face Encounter: 03/08/21 Reason for Homebound Status: Deconditioning and weakness from CAP and hospitalization. Primary Care Physician: Jen Ryan NP Skilled Need: Nursing care - Discharge Diagnosis/Problem(s) (1) Pneumonia SNOMED Code(s): 777236736 ICD Code: J18.9 - PNEUMONIA, UNSPECIFIED ORGANISM Status: Acute - Patient Summary/Data Consults: Consultations 03/04/21 09:41 Consult to Physical Therapy [PT Evaluation and Treatment] [CONS] Routine 03/06/21 13:09 Consult to Case Management/Reservations Clerk [CONS] Routine 03/06/21 13:12 Consult to Home Health [CONS] Routine - Patient Instructions Diet: Regular Diet as Tolerated Activity: As Tolerated Notify Provider of: Fever Other/Special Instructions: He will be discharged with an antibiotic for 5 days, levofloxacin. Please take 1 tablet daily for 5 days. You will complete a prednisone (steroid) taper. You will not have a prescription for this since you already have a bottle. Please follow the directions: -Take 40 mg for 3 days. -Take 20 mg for 3 days. -Take 10 mg for 3 days. -Take 5 mg for 3 days. -Take 2.5 mg for 3 days. This is a total of 15 days of prednisone. After this please consult with your shuttler car regarding ongoing steroid therapy. Your prescription for Symbicort has been refilled. If you experience fever, chills, chest pain, palpitations, increased sputum production, difficulty breathing, please seek medical attention immediately. - Discharge Plan *PRESCRIPTION DRUG MONITORING PROGRAM REVIEWED*: Not Applicable *COPY OF PRESCRIPTION DRUG MONITORING REPORT IN PATIENT CHRISTA: Not Applicable Prescriptions/Med Rec: Levofloxacin 750 mg PO DAILY 5 Days #5 tablet amLODIPine [Norvasc] 5 mg PO DAILY 30 Days #30 tab Budesonide/Formoterol [Symbicort 160-4.5 MCG] 2 puff INH BID #1 inhaler Home Medications: Home Meds Albuterol [Ventolin HFA] 2 puff INH Q6H PRN 10/25/19 [History] Albuterol/Ipratropium [DuoNeb 3.0-0.5 MG/3 ML] 3 ml NEB Q6H PRN 01/28/21 [History] Cholecalciferol (Vitamin D3) [Vitamin D3] 1,250 mcg PO MOFR@0900 01/28/21 [History] FLUoxetine HCl [Fluoxetine HCl] 20 mg PO DAILY 01/28/21 [History] Pantoprazole 40 mg PO DAILY 01/28/21 [History] Tiotropium [Spiriva HandiHaler] 18 mcg IH DAILY 01/28/21 [History] hydrOXYzine pamoate [Hydroxyzine Pamoate] 25 mg PO BID PRN 01/28/21 [History] predniSONE [Prednisone] 60 mg PO DAILY 01/28/21 [History] traMADol [Ultram] 50 mg PO BID 01/28/21 [History] guaiFENesin [Mucus Relief] 400 mg PO Q4H PRN #20 tablet 01/30/21 [Rx] Cholecalciferol (Vitamin D3) [Vitamin D3] 125 mcg PO DAILY 03/02/21 [History] Budesonide/Formoterol [Symbicort 160-4.5 MCG] 2 puff INH BID #1 inhaler 03/08/21 [Rx] Levofloxacin 750 mg PO DAILY 5 Days #5 tablet 03/08/21 [Rx] amLODIPine [Norvasc] 5 mg PO DAILY tablet 03/08/21 [Rx] amLODIPine [Norvasc] 5 mg PO DAILY 30 Days #30 tab 03/08/21 [Rx] Oxygen Therapy Mode: Nasal Cannula Oxygen Flow Rate (L/min): 1.5 Patient Handouts: Budesonide; Formoterol Inhalation aerosol, Levofloxacin tablets, Community-Acquired Pneumonia, Adult, [id number] Referrals: Isauro Griffin MD [Ordering Only Provider] - 03/15/21 12:30 pm - Discharge Summary/Plan Comment DC Time >30 min.: Yes Total # of Minutes for Discharge Time: 45min - General Info Admission Dx/Problem (Free Text: Admission Diagnosis/Problem Admission Diagnosis/Problem Community acquired pneumonia - Review of Systems General: Denies: Fever HEENT: Denies: Headaches, Sinus Congestion, Sore Throat Pulmonary: Reports: Shortness of Breath. Denies: Pleuritic Chest Pain Cardiovascular: Denies: Chest Pain, Palpitations, Edema Gastrointestinal: Denies: Abdominal Pain, Constipation, Diarrhea, Nausea, Vomiting Genitourinary: Denies: Dysuria Musculoskeletal: Denies: Leg Pain Skin: Denies: Cyanosis Neurological: Denies: Confusion, Dizziness Psychiatric: Denies: Confusion - Patient Data Vitals - Most Recent: Last Vital Signs Temp 98 F 03/08/21 05:32 Pulse 75 03/08/21 05:32 Resp 19 03/08/21 05:32 BP 145/66 H 03/08/21 05:32 Pulse Ox 95 03/08/21 05:32 Weight - Most Recent: 55.474 kg I&O - Last 24 hours: Intake & Output 03/07/21 03/08/21 03/08/21 22:59 06:59 14:59 Intake Total 800 950 Output Total 900 1200 Balance -100 -250 Lab Results - Last 24 hrs: Laboratory Results - last 24 hr 03/08/21 03/08/21 Range/Units 05:50 05:50 WBC 10.68 (4.0-11.0) K/uL RBC 4.04 L (4.30-5.90) M/uL Hgb 12.3 (12.0-16.0) g/dL Hct 37.7 (36.0-46.0) % MCV 93.3 (80.0-98.0) fL MCH 30.4 (27.0-32.0) pg MCHC 32.6 (31.0-37.0) g/dL RDW Std Deviation 46.7 (28.0-62.0) fl RDW Coeff of Murtaza 14 (11.0-15.0) % Plt Count 277 (150-400) K/uL MPV 8.80 (7.40-12.00) fL Add Manual Diff YES Neutrophils % (Manual) 88 H (48.0-80.0) % Band Neutrophils % 2 % Lymphocytes % (Manual) 7 L (16.0-40.0) % Monocytes % (Manual) 3 (0.0-15.0) % Nucleated RBC % 0.0 /100WBC Absolute Seg Neuts 9.4 H (1.4-5.7) Band Neutrophils # 0.2 Lymphocytes # (Manual) 0.7 (0.6-2.4) Monocytes # (Manual) 0.3 (0.0-0.8) Nucleated RBCs # 0 K/uL Sodium 144 (136-145) mmol/L Potassium 4.4 (3.5-5.1) mmol/L Chloride 104 (98-107) mmol/L Carbon Dioxide 34.4 H (21.0-32.0) mmol/L BUN 20 H (7.0-18.0) mg/dL Creatinine 0.9 (0.6-1.0) mg/dL Est Cr Clr Drug Dosing 51.26 mL/min Estimated GFR (MDRD) > 60.0 ml/min Glucose 121 H (74-106) mg/dL Calcium 8.9 (8.5-10.1) mg/dL Total Bilirubin 0.3 (0.2-1.0) mg/dL AST 10 L (15-37) IU/L ALT 21 (14-63) IU/L Alkaline Phosphatase 66 (46-116) U/L Total Protein 5.9 L (6.4-8.2) g/dL Albumin 2.4 L (3.4-5.0) g/dL Globulin 3.5 (2.6-4.0) g/dL Albumin/Globulin Ratio 0.7 L (0.9-1.6) VIKI Results - Last 24 hrs: Microbiology 03/02/21 13:10 Aerobic Blood Culture - Final Blood - Venous - Lab Draw NO GROWTH AFTER 5 DAYS Anaerobic Blood Culture - Final 03/02/21 12:51 Aerobic Blood Culture - Final Blood - Venous NO GROWTH AFTER 5 DAYS Anaerobic Blood Culture - Final NO GROWTH AFTER 5 DAYS Med Orders - Current: Current Medications Albuterol/Ipratropium (Albuterol/Ipratropium 3.0-0.5 Mg/3 Ml Neb Soln) 3 ml NEB Q6HRRT [facility] Last Admin: 03/08/21 05:46 Dose: 3 ml Documented by: Amlodipine Besylate (Amlodipine 5 Mg Tab) 5 mg PO DAILY [facility] Last Admin: 03/07/21 09:17 Dose: 5 mg Documented by: Benzonatate (Benzonatate 100 Mg Cap) 100 mg PO Q6H PRN PRN Reason: Cough Last Admin: 03/07/21 21:11 Dose: 100 mg Documented by: Cholecalciferol (Cholecalciferol (Vitamin D3) 25 Mcg Tab) 125 mcg PO DAILY [facility] Last Admin: 03/07/21 09:13 Dose: 125 mcg Documented by: Docusate Sodium (Docusate Sodium 100 Mg Cap) 100 mg PO Q12H PRN PRN Reason: Constipation Last Admin: 03/07/21 21:14 Dose: 100 mg Documented by: Fluoxetine HCl (Fluoxetine 20 Mg Cap) 20 mg PO DAILY [facility] Last Admin: 03/07/21 09:14 Dose: 20 mg Documented by: Hydroxyzine Pamoate (Hydroxyzine Pamoate 25 Mg Cap) 25 mg PO BID PRN PRN Reason: Anxiety Last Admin: 03/07/21 21:11 Dose: 25 mg Documented by: Azithromycin 500 mg/ Sodium (Chloride) 250 mls @ 250 mls/hr IV DAILY [facility] Last Admin: 03/07/21 09:15 Dose: 250 mls/hr Documented by: Ceftriaxone Sodium/Dextrose 1 (gm/ Premix) 50 mls @ 100 mls/hr IV Q24H [facility] Last Admin: 03/07/21 20:03 Dose: 100 mls/hr Documented by: Melatonin (Melatonin 3 Mg Tab) 6 mg PO BEDTIME PRN PRN Reason: Insomnia Last Admin: 03/07/21 21:11 Dose: 6 mg Documented by: Methylprednisolone Sodium Succinate (Methylprednisolone Sodium Succinate 40 Mg/1 Ml Sdv) 40 mg IVPUSH Q8H [facility] Last Admin: 03/08/21 05:34 Dose: 40 mg Documented by: Pantoprazole Sodium (Pantoprazole 40 Mg Tab.Cr) 40 mg PO ACBREAKFAST [facility] Last Admin: 03/07/21 06:30 Dose: 40 mg Documented by: Budesonide/Formoterol [ Symbicort 160-4.5 Mcg] 2 each INH BID [facility] Last Admin: 03/07/21 20:33 Dose: Not Given Documented by: Tiotropium [place] (Tiotropium Inhaler 18 Mcg Inhalation Powder Cap Kit Of 5) 18 mcg INH DAILY [facility] Last Admin: 03/07/21 09:15 Dose: 1 cap Documented by: Tramadol HCl (Tramadol 50 Mg Tab) 50 mg PO DAILY PRN PRN Reason: Pain Last Admin: 03/07/21 09:55 Dose: 50 mg Documented by: Discontinued Medications Albuterol/Ipratropium (Albuterol/Ipratropium 3.0-0.5 Mg/3 Ml Neb Soln) 3 ml NEB ONETIME ONE Stop: 03/02/21 12:45 Last Admin: 03/02/21 13:26 Dose: 3 ml Documented by: Albuterol/Ipratropium (Albuterol/Ipratropium 3.0-0.5 Mg/3 Ml Neb Soln) 3 ml NEB Q6H [facility] Last Admin: 03/03/21 05:08 Dose: Not Given Documented by: Azithromycin (Azithromycin 500 Mg Vial) 500 mg IV Q24H [facility] Last Admin: 03/03/21 05:09 Dose: Not Given Documented by: Azithromycin (Azithromycin 500 Mg Vial) Confirm Administered Dose 500 mg .ROUTE .STK-MED ONE Stop: 03/02/21 22:33 Last Admin: 03/02/21 23:28 Dose: Not Given Documented by: Ceftriaxone Sodium (Ceftriaxone 1 Gm Vial) 1 gm IVPUSH Q24H [facility] Lactated Ringer's (Ringers, Lactated) 1,000 mls @ 999 mls/hr IV ASDIRECTED [facility] Last Admin: 03/02/21 13:15 Dose: 999 mls/hr Documented by: Ampicillin Sodium/Sulbactam (Sodium 3 gm/ Sodium Chloride) 100 mls @ 200 mls/hr IV ONETIME ONE Stop: 03/02/21 13:24 Last Admin: 03/02/21 13:57 Dose: 200 mls/hr Documented by: Lactated Ringer's (Ringers, Lactated) 1,000 mls @ 125 mls/hr IV ASDIRECTED [facility] Last Admin: 03/04/21 08:47 Dose: 125 mls/hr Documented by: Ceftriaxone Sodium/Dextrose 1 (gm/ Premix) 50 mls @ 100 mls/hr IV ONETIME ONE Stop: 03/02/21 18:39 Last Admin: 03/03/21 05:10 Dose: Not Given Documented by: Iopamidol (Iopamidol 755 Mg/Ml 500 Ml Multipack Bottle) 100 ml IVPUSH ONETIME STA Stop: 03/02/21 15:33 Last Admin: 03/02/21 15:33 Dose: 100 ml Documented by: Pantoprazole Sodium (Pantoprazole 40 Mg Tab.Cr) 40 mg PO DAILY [facility] Last Admin: 03/05/21 09:26 Dose: 40 mg Documented by: Prednisone (Prednisone 20 Mg Tab) 50 mg PO DAILY [facility] Last Admin: 03/05/21 09:26 Dose: 50 mg Documented by: Tramadol HCl (Tramadol 50 Mg Tab) 50 mg PO ONETIME ONE Stop: 03/03/21 21:55 Last Admin: 03/04/21 00:06 Dose: Not Given Documented by: Tramadol HCl (Tramadol 50 Mg Tab) 25 mg PO ONETIME ONE Stop: 03/05/21 21:01 Last Admin: 03/05/21 22:02 Dose: 25 mg Documented by: - Exam Quality Assessment: Reports: Supplemental Oxygen General: Reports: Alert, Oriented, Cooperative HEENT: Reports: Pupils Equal, Pupils Reactive, Mucous Membr. Moist/[place] Neck: Reports: Supple, Trachea Midline Lungs: Reports: Clear to Auscultation, Decreased Breath Sounds Cardiovascular: Reports: Regular Rate, Regular Rhythm, No Murmurs GI/Abdominal Exam: Normal Bowel Sounds, Soft, Non-Tender Back Exam: Reports: Normal Inspection Extremities: Normal Inspection, No Pedal Edema. No: Telma's Sign, Leg Pain Skin: Reports: Warm, Dry, Intact Neurological: Reports: No New Focal Deficit Psy/Mental Status: Reports: Alert, Normal Affect, Normal Mood <Pina Henry - Last Filed: 03/08/21 23:21> Discharge Summary - Hospital Course Free Text/Narrative:: I have seen and evaluated the patient and agree with the residents note unless specified in my note - Referral to Home Health Primary Care Physician: Jen Ryan NP - Discharge Diagnosis/Problem(s) (1) Anxiety SNOMED Code(s): 83592132 ICD Code: F41.9 - ANXIETY DISORDER, UNSPECIFIED Status: Acute (2) Depression SNOMED Code(s): 21065937 ICD Code: F32.A - DEPRESSION, UNSPECIFIED Status: Acute (3) GERD (gastroesophageal reflux disease) SNOMED Code(s): 426445479 ICD Code: K21.9 - GASTRO-ESOPHAGEAL REFLUX DISEASE WITHOUT ESOPHAGITIS Status: Acute (4) Pneumonia SNOMED Code(s): 619105141 ICD Code: J18.9 - PNEUMONIA, UNSPECIFIED ORGANISM Status: Acute (5) Respiratory failure with hypoxia SNOMED Code(s): 03457013285958849 ICD Code: J96.91 - RESPIRATORY FAILURE, UNSPECIFIED WITH HYPOXIA Status: Acute (6) Acquired hemophilia SNOMED Code(s): 093300462 ICD Code: D68.311 - ACQUIRED HEMOPHILIA Status: Acute (7) COPD exacerbation SNOMED Code(s): 985407060, 695351309 ICD Code: J44.1 - CHRONIC OBSTRUCTIVE PULMONARY DISEASE W (ACUTE) EXACERBATION Status: Acute (8) HTN (hypertension) SNOMED Code(s): 83575225 ICD Code: I10 - ESSENTIAL (PRIMARY) HYPERTENSION Status: Acute - Patient Summary/Data Consults: Consultations 03/04/21 09:41 Consult to Physical Therapy [PT Evaluation and Treatment] [CONS] Routine 03/06/21 13:09 Consult to Case Management/Reservations Clerk [CONS] Routine 03/06/21 13:12 Consult to Home Health [CONS] Routine - Patient Data Vitals - Most Recent: Last Vital Signs Temp 36.9 C 03/08/21 08:00 Pulse 88 03/08/21 08:00 Resp 21 H 03/08/21 08:00 BP 135/63 03/08/21 08:21 Pulse Ox 91 L 03/08/21 08:00 Lab Results - Last 24 hrs: Laboratory Results - last 24 hr 03/08/21 03/08/21 Range/Units 05:50 05:50 WBC 10.68 (4.0-11.0) K/uL RBC 4.04 L (4.30-5.90) M/uL Hgb 12.3 (12.0-16.0) g/dL Hct 37.7 (36.0-46.0) % MCV 93.3 (80.0-98.0) fL MCH 30.4 (27.0-32.0) pg MCHC 32.6 (31.0-37.0) g/dL RDW Std Deviation 46.7 (28.0-62.0) fl RDW Coeff of Murtaza 14 (11.0-15.0) % Plt Count 277 (150-400) K/uL MPV 8.80 (7.40-12.00) fL Add Manual Diff YES Neutrophils % (Manual) 88 H (48.0-80.0) % Band Neutrophils % 2 % Lymphocytes % (Manual) 7 L (16.0-40.0) % Monocytes % (Manual) 3 (0.0-15.0) % Nucleated RBC % 0.0 /100WBC Absolute Seg Neuts 9.4 H (1.4-5.7) Band Neutrophils # 0.2 Lymphocytes # (Manual) 0.7 (0.6-2.4) Monocytes # (Manual) 0.3 (0.0-0.8) Nucleated RBCs # 0 K/uL Sodium 144 (136-145) mmol/L Potassium 4.4 (3.5-5.1) mmol/L Chloride 104 (98-107) mmol/L Carbon Dioxide 34.4 H (21.0-32.0) mmol/L BUN 20 H (7.0-18.0) mg/dL Creatinine 0.9 (0.6-1.0) mg/dL Est Cr Clr Drug Dosing 51.26 mL/min Estimated GFR (MDRD) > 60.0 ml/min Glucose 121 H (74-106) mg/dL Calcium 8.9 (8.5-10.1) mg/dL Total Bilirubin 0.3 (0.2-1.0) mg/dL AST 10 L (15-37) IU/L ALT 21 (14-63) IU/L Alkaline Phosphatase 66 (46-116) U/L Total Protein 5.9 L (6.4-8.2) g/dL Albumin 2.4 L (3.4-5.0) g/dL Globulin 3.5 (2.6-4.0) g/dL Albumin/Globulin Ratio 0.7 L (0.9-1.6) Med Orders - Current: Current Medications Discontinued Medications Albuterol/Ipratropium (Albuterol/Ipratropium 3.0-0.5 Mg/3 Ml Neb Soln) 3 ml NEB ONETIME ONE Stop: 03/02/21 12:45 Last Admin: 03/02/21 13:26 Dose: 3 ml Documented by: Albuterol/Ipratropium (Albuterol/Ipratropium 3.0-0.5 Mg/3 Ml Neb Soln) 3 ml NEB Q6H [facility] Last Admin: 03/03/21 05:08 Dose: Not Given Documented by: Albuterol/Ipratropium (Albuterol/Ipratropium 3.0-0.5 Mg/3 Ml Neb Soln) 3 ml NEB Q6HRRT [facility] Last Admin: 03/08/21 05:46 Dose: 3 ml Documented by: Amlodipine Besylate (Amlodipine 5 Mg Tab) 5 mg PO DAILY [facility] Last Admin: 03/08/21 08:21 Dose: 5 mg Documented by: Azithromycin (Azithromycin 500 Mg Vial) 500 mg IV Q24H [facility] Last Admin: 03/03/21 05:09 Dose: Not Given Documented by: Azithromycin (Azithromycin 500 Mg Vial) Confirm Administered Dose 500 mg .ROUTE .STK-MED ONE Stop: 03/02/21 22:33 Last Admin: 03/02/21 23:28 Dose: Not Given Documented by: Benzonatate (Benzonatate 100 Mg Cap) 100 mg PO Q6H PRN PRN Reason: Cough Last Admin: 03/07/21 21:11 Dose: 100 mg Documented by: Ceftriaxone Sodium (Ceftriaxone 1 Gm Vial) 1 gm IVPUSH Q24H [facility] Cholecalciferol (Cholecalciferol (Vitamin D3) 25 Mcg Tab) 125 mcg PO DAILY [facility] Last Admin: 03/08/21 09:00 Dose: Not Given Documented by: Docusate Sodium (Docusate Sodium 100 Mg Cap) 100 mg PO Q12H PRN PRN Reason: Constipation Last Admin: 03/07/21 21:14 Dose: 100 mg Documented by: Fluoxetine HCl (Fluoxetine 20 Mg Cap) 20 mg PO DAILY [facility] Last Admin: 03/08/21 08:22 Dose: 20 mg Documented by: Hydroxyzine Pamoate (Hydroxyzine Pamoate 25 Mg Cap) 25 mg PO BID PRN PRN Reason: Anxiety Last Admin: 03/07/21 21:11 Dose: 25 mg Documented by: Lactated Ringer's (Ringers, Lactated) 1,000 mls @ 999 mls/hr IV ASDIRECTED [facility] Last Admin: 03/02/21 13:15 Dose: 999 mls/hr Documented by: Ampicillin Sodium/Sulbactam (Sodium 3 gm/ Sodium Chloride) 100 mls @ 200 mls/hr IV ONETIME ONE Stop: 03/02/21 13:24 Last Admin: 03/02/21 13:57 Dose: 200 mls/hr Documented by: Lactated Ringer's (Ringers, Lactated) 1,000 mls @ 125 mls/hr IV ASDIRECTED [facility] Last Admin: 03/04/21 08:47 Dose: 125 mls/hr Documented by: Ceftriaxone Sodium/Dextrose 1 (gm/ Premix) 50 mls @ 100 mls/hr IV ONETIME ONE Stop: 03/02/21 18:39 Last Admin: 03/03/21 05:10 Dose: Not Given Documented by: Azithromycin 500 mg/ Sodium (Chloride) 250 mls @ 250 mls/hr IV DAILY [facility] Last Admin: 03/08/21 08:22 Dose: 250 mls/hr Documented by: Ceftriaxone Sodium/Dextrose 1 (gm/ Premix) 50 mls @ 100 mls/hr IV Q24H [facility] Last Admin: 03/07/21 20:03 Dose: 100 mls/hr Documented by: Iopamidol (Iopamidol 755 Mg/Ml 500 Ml Multipack Bottle) 100 ml IVPUSH ONETIME STA Stop: 03/02/21 15:33 Last Admin: 03/02/21 15:33 Dose: 100 ml Documented by: Melatonin (Melatonin 3 Mg Tab) 6 mg PO BEDTIME PRN PRN Reason: Insomnia Last Admin: 03/07/21 21:11 Dose: 6 mg Documented by: Methylprednisolone Sodium Succinate (Methylprednisolone Sodium Succinate 40 Mg/1 Ml Sdv) 40 mg IVPUSH Q8H [facility] Last Admin: 03/08/21 05:34 Dose: 40 mg Documented by: Pantoprazole Sodium (Pantoprazole 40 Mg Tab.Cr) 40 mg PO DAILY [facility] Last Admin: 03/05/21 09:26 Dose: 40 mg Documented by: Pantoprazole Sodium (Pantoprazole 40 Mg Tab.Cr) 40 mg PO ACBREAKFAST [facility] Last Admin: 03/08/21 08:22 Dose: 40 mg Documented by: Budesonide/Formoterol [ Symbicort 160-4.5 Mcg] 2 each INH BID [facility] Last Admin: 03/08/21 08:25 Dose: Not Given Documented by: Prednisone (Prednisone 20 Mg Tab) 50 mg PO DAILY [facility] Last Admin: 03/05/21 09:26 Dose: 50 mg Documented by: Tiotropium [place] (Tiotropium Inhaler 18 Mcg Inhalation Powder Cap Kit Of 5) 18 mcg INH DAILY [facility] Last Admin: 03/08/21 08:25 Dose: 1 cap Documented by: Tramadol HCl (Tramadol 50 Mg Tab) 50 mg PO DAILY PRN PRN Reason: Pain Last Admin: 03/07/21 09:55 Dose: 50 mg Documented by: Tramadol HCl (Tramadol 50 Mg Tab) 50 mg PO ONETIME ONE Stop: 03/03/21 21:55 Last Admin: 03/04/21 00:06 Dose: Not Given Documented by: Tramadol HCl (Tramadol 50 Mg Tab) 25 mg PO ONETIME ONE Stop: 03/05/21 21:01 Last Admin: 03/05/21 22:02 Dose: 25 mg Documented by:
[2021-03-08] MEDS: amLODIPine 5 MG Tab PO SCH (08:21)
[2021-03-08] MEDS: FLUoxetine 20 MG Cap PO SCH (08:22)
[2021-03-08] MEDS: Pantoprazole 40 MG Tab.CR PO SCH (08:22)
[2021-03-08] MEDS: Azithromycin 500 MG in Sodium Chloride 0.9% 250 ML IV SCH (08:22)
[2021-03-08] MEDS: Budesonide/Formoterol [Symbicort 160-4.5 Mcg] INH SCH (08:25)
[2021-03-08] MEDS: Tiotropium Inhaler 18 MCG Inhalation Powder Cap Kit of 5 INH SCH (08:25)
[2021-03-08 08:26] VITALS: BP 135/63
[2021-03-08 08:45] VITALS: PULSE 88
[2021-03-08] MEDS: Cholecalciferol (Vitamin D3) 25 MCG Tab PO SCH (09:00)
== END 2021-03-08 10:50 | disposition home health service (06) | DRG 193 ==
LOC: MW.ED 11:49 → MW.MS 17:26 → OBSVTOIN 17:26
PROVIDERS: ADMIT Internal Medicine; ATTEND Internal Medicine
DX: J18.9 Pneumonia, unspecified organism (principal); J96.01 Acute respiratory failure with hypoxia; D68.311 Acquired hemophilia; J44.0 Chronic obstructive pulmonary disease with (acute) lower respiratory infection; J44.1 Chronic obstructive pulmonary disease with (acute) exacerbation; K21.9 Gastro-esophageal reflux disease without esophagitis; I10 Essential (primary) hypertension; F41.9 Anxiety disorder, unspecified; F32.9 Major depressive disorder, single episode, unspecified; K59.09 Other constipation; M54.40 Lumbago with sciatica, unspecified side; Z20.822 Contact with and (suspected) exposure to COVID-19; Z88.6 Allergy status to analgesic agent; Z88.5 Allergy status to narcotic agent; Z88.2 Allergy status to sulfonamides; Z79.899 Other long term (current) drug therapy
CPT/HCPCS: 36415; 71045; 71045-26; 71275; 71275-26; 80048; 80053; 83605; 83735; 84484; 85025; 85610; 87040; 87804; 93005; 94640; 96365; 97110-GP; 97161-GP; 99291; A9270-GY; J0295; J0456; J0696; J2920; J7050; J7120; J7620-GY; Q9967; U0002

== ENCOUNTER 2022-02-25 14:45 | Emergency (ER) | payer MEDICAID | END 2022-02-25 18:16 | LOC: MW.ED 14:45 | DX: J44.1 Chronic obstructive pulmonary disease with (acute) exacerbation (principal); I10 Essential (primary) hypertension; Z79.899 Other long term (current) drug therapy | CPT/HCPCS: 71046; 71046-26; 96361; 96374; 96375; 99284-25 ==

== ENCOUNTER 2022-07-25 17:53 | Emergency (ER) | payer MEDICAID, OTHER ==
[2022-07-25] MEDS ORDERED: methylPREDNISolone Sodium Succinate 125 MG/2 ML SDV IVPUSH ONE (18:05)
[2022-07-25] MEDS ORDERED: Albuterol/Ipratropium 3.0-0.5 MG/3 ML Neb Soln NEB ONE (18:05)
[2022-07-25] MEDS ORDERED: Azithromycin 500 MG in Sodium Chloride 0.9% 250 ML IV ONE (18:06)
[2022-07-25 18:08] VITALS: BP 121/64
[2022-07-25 18:52] LABS: CARBON DIOXIDE,CO2 29.4 mmol/L (21.0-32.0); POTASSIUM,K 3.7 mmol/L (3.5-5.1)
[2022-07-25] MEDS ORDERED: cefTRIAXone 1 GM in Sodium Chloride 0.9% 50 ML IV ONE (18:53)
[2022-07-25 19:10] LABS: CORONAVIRUS COVID-19 NAA POSITIVE (NEGATIVE); INFLUENZA A NAA NEGATIVE (NEGATIVE); INFLUENZA B NAA NEGATIVE (NEGATIVE); RESPIRATORY SYNCYTIAL VIR NAA NEGATIVE (NEGATIVE)
[2022-07-25 20:09] VITALS: PULSE 91
== END 2022-07-25 20:23 | disposition home or self-care (01) ==
LOC: MW.ED 17:53
DX: U07.1 COVID-19 (principal); J44.1 Chronic obstructive pulmonary disease with (acute) exacerbation; E66.9 Obesity, unspecified; Z68.21 Body mass index [BMI] 21.0-21.9, adult; Z88.5 Allergy status to narcotic agent; Z91.09 Other allergy status, other than to drugs and biological substances
CPT/HCPCS: 0241U; 36415; 71045; 71045-26; 80053; 82550; 83605; 85025; 87040; 93005; 96365; 96367; 96375; 99285-25; J0456; J0696; J2930; J7050; J7620-GY

== ENCOUNTER 2022-08-20 10:46 | Emergency (ER) | payer MEDICAID ==
[2022-08-20] MEDS ORDERED: Sodium Chloride 0.9% 10 ML Syringe FLUSH PRN (10:56)
[2022-08-20] MEDS ORDERED: Sodium Chloride 0.9% 2.5 ML Syringe FLUSH PRN (10:56)
[2022-08-20] MEDS ORDERED: Albuterol/Ipratropium 3.0-0.5 MG/3 ML Neb Soln NEB ONE (11:19)
[2022-08-20 11:57] LABS: CARBON DIOXIDE,CO2 29.2 mmol/L (21.0-32.0); POTASSIUM,K 4.3 mmol/L (3.5-5.1)
[2022-08-20 12:01] LABS: CORONAVIRUS COVID-19 NAA NEGATIVE (NEGATIVE); INFLUENZA A NAA NEGATIVE (NEGATIVE); INFLUENZA B NAA NEGATIVE (NEGATIVE); RESPIRATORY SYNCYTIAL VIR NAA NEGATIVE (NEGATIVE)
[2022-08-20] MEDS ORDERED: LORazepam 0.5 MG Tab PO ONE (12:19)
[2022-08-20 14:53] VITALS: BP 144/80; PULSE 113
== END 2022-08-20 14:53 | disposition home or self-care (01) ==
LOC: MW.ED 10:46
DX: R06.02 Shortness of breath (principal); R05.9 Cough, unspecified; J44.9 Chronic obstructive pulmonary disease, unspecified; F17.210 Nicotine dependence, cigarettes, uncomplicated; E66.9 Obesity, unspecified; Z68.21 Body mass index [BMI] 21.0-21.9, adult; Z86.16 Personal history of COVID-19; Z88.5 Allergy status to narcotic agent; Z88.8 Allergy status to other drugs, medicaments and biological substances; Z79.899 Other long term (current) drug therapy; Z20.822 Contact with and (suspected) exposure to COVID-19
CPT/HCPCS: 0241U; 36415; 71045; 80053; 82803; 83605; 85025; 87040; 93005; 94640; 99285; A9270; J3490; J7620-GY

== ENCOUNTER 2023-05-21 14:10 | Emergency (ER) | payer MEDICAID, MEDICARE ==
[2023-05-21] MEDS ORDERED: Albuterol/Ipratropium 3.0-0.5 MG/3 ML Neb Soln ONE (14:15)
[2023-05-21] MEDS ORDERED: Albuterol/Ipratropium 3.0-0.5 MG/3 ML Neb Soln NEB STA (14:16)
[2023-05-21] MEDS ORDERED: Sodium Chloride 0.9% 2.5 ML Syringe FLUSH PRN (14:17)
[2023-05-21] MEDS ORDERED: Sodium Chloride 0.9% 10 ML Syringe FLUSH PRN (14:17)
[2023-05-21] MEDS ORDERED: LORazepam 2 MG/ML SDV IVPUSH STA (14:21)
[2023-05-21] MEDS ORDERED: Magnesium Sulfate/Water 2 GM in Premix Bag 1 BAG IV STA (14:21)
[2023-05-21] MEDS ORDERED: Levofloxacin/Dextrose 5%-Water 500 MG in Premix Bag 1 BAG IV STA (14:29)
[2023-05-21 14:51] LABS: BASE EXCESS VENOUS 0.6 (-2.0-3.0); PH,VENOUS 7.25 (7.31-7.41)
[2023-05-21] MEDS ORDERED: Ketorolac 30 MG/ML SDV IVPUSH ONE (14:54)
[2023-05-21] MEDS ORDERED: Acetaminophen 1,000 MG in Premix Bag 1 BAG IV ONE (14:54)
[2023-05-21 15:00] LABS: CORONAVIRUS COVID-19 NAA NEGATIVE (NEGATIVE); INFLUENZA A NAA NEGATIVE (NEGATIVE); INFLUENZA B NAA NEGATIVE (NEGATIVE); RESPIRATORY SYNCYTIAL VIR NAA NEGATIVE (NEGATIVE)
[2023-05-21 15:06] LABS: HEMATOCRIT 42.8 % (37.0-47.0); HEMOGLOBIN 14.1 g/dL (12.0-16.0); MEAN CORPUSCULAR HEMOGLOBIN 30.9 pg (28.0-32.0); MEAN CORPUSCULAR HGB CONC 32.9 g/dL (32.0-36.0); MEAN CORPUSCULAR VOLUME 93.9 fL (83.0-99.0); MEAN PLATELET VOLUME 9.6 fL (9.4-12.3); PLATELET COUNT,PLT 271 K/uL (150-400); RED BLOOD CELL COUNT 4.56 M/uL (4.10-5.30); WHITE BLOOD CELL COUNT,WBC 10.61 K/uL (3.9-11.3)
[2023-05-21] MEDS ORDERED: Rocuronium 50 MG/5 ML Vial IV ONE (15:09)
[2023-05-21] MEDS ORDERED: Ketamine 500 mg/10 ML MDV IV ONE ×3 (15:09→18:15)
[2023-05-21] MEDS ORDERED: Lactated Ringers 1,000 ML IV SCH (15:15)
[2023-05-21 15:17] LABS: LACTIC ACID 0.9 mmol/L (0.4-2.0)
[2023-05-21 15:26] LABS: BAND ABSOLUTE MAN 0.64; BAND PERCENT MAN 6 %; EOSINOPHILS ABSOLUTE MAN 0.11 K/uL (0.00-0.45); EOSINOPHILS PERCENT MAN 1 % (0-6); LYMPHOCYTES ABSOLUTE MAN 1.38 K/uL (1.00-4.80); LYMPHOCYTES PERCENT MAN 13 % (24-44); MONOCYTES ABSOLUTE MAN 2.23 K/uL (0.00-0.80); MONOCYTES PERCENT MAN 21 % (0-8); SEG NEUTROPHILS ABSOLUTE MAN 6.26 K/uL (1.80-7.70); SEG NEUTROPHILS PERCENT MAN 59 % (41-71)
[2023-05-21 15:41] LABS: A/G RATIO 0.8 (0.9-1.6); ALBUMIN 3.4 g/dL (3.4-5.0); BILIRUBIN TOTAL 0.4 mg/dL (0.2-1.0); CALCIUM 9.2 mg/dL (8.5-10.1); CARBON DIOXIDE,CO2 30.3 mmol/L (21.0-32.0); CREATININE 0.8 mg/dL (0.6-1.0); EST CRCL DRUG DOSING (CG) 56.19 mL/min; POTASSIUM,K 4.2 mmol/L (3.5-5.1); PROTEIN TOTAL,TP 7.5 g/dL (6.4-8.2)
[2023-05-21] MEDS: propofoL 100 ML IV SCH ×2 (15:50→18:14)
[2023-05-21] MEDS ORDERED: HYDROmorphone 1 MG/ML Syringe ONE ×2 (15:53→16:25)
[2023-05-21] MEDS ORDERED: HYDROmorphone 1 MG/ML Syringe IVPUSH ONE ×3 (15:54→17:05)
[2023-05-21] MEDS ORDERED: HYDROmorphone 2 MG/ML Syringe IVPUSH ONE ×3 (15:54→17:15)
[2023-05-21 16:12] LABS: BASE EXCESS VENOUS -1.8 (-2.0-3.0); PH,VENOUS 7.26 (7.31-7.41)
[2023-05-21] MEDS ORDERED: Azithromycin 500 MG in Sodium Chloride 0.9% 250 ML IV ONE (16:19)
[2023-05-21] MEDS ORDERED: Propofol 200 MG/20 ML SDV IVPUSH ONE (17:10)
[2023-05-21 17:29] LABS: PH,VENOUS 7.32 (7.31-7.41)
[2023-05-21] MEDS ORDERED: Benzocaine 20% Topical Spray UD MUCMEM ONE (18:17)
[2023-05-21] MEDS ORDERED: propofoL 100 ML IV ONE (18:20)
[2023-05-22 08:07] VITALS: BP 99/69; PULSE 101
== END 2023-05-21 18:45 ==
LOC: MW.ED 14:10
DX: J44.1 Chronic obstructive pulmonary disease with (acute) exacerbation (principal); K21.9 Gastro-esophageal reflux disease without esophagitis; E66.9 Obesity, unspecified; Z68.21 Body mass index [BMI] 21.0-21.9, adult; Z88.5 Allergy status to narcotic agent; Z88.2 Allergy status to sulfonamides; Z79.899 Other long term (current) drug therapy; Z86.16 Personal history of COVID-19
CPT/HCPCS: 0241U; 31500; 36415; 43752; 51702; 71045; 80053; 82803; 83605; 84484; 85025; 87040; 93005; 94640; 94660; 96365; 96367; 96375; 96376; 99291; J0456; J1170; J1885; J1956; J2060; J2704; J3475; J3490; J7050; J7120; 93010; J7620-GY

== ENCOUNTER 2023-06-12 09:57 | Emergency (ER) | payer MEDICARE ==
[2023-06-12] MEDS ORDERED: Albuterol/Ipratropium 3.0-0.5 MG/3 ML Neb Soln NEB ONE (10:38)
[2023-06-12] MEDS ORDERED: methylPREDNISolone Sodium Succinate 125 MG/2 ML SDV IVPUSH ONE (10:38)
[2023-06-12 11:30] LABS: HEMATOCRIT 40.8 % (37.0-47.0); HEMOGLOBIN 13.5 g/dL (12.0-16.0); MEAN CORPUSCULAR HEMOGLOBIN 30.9 pg (28.0-32.0); MEAN CORPUSCULAR HGB CONC 33.1 g/dL (32.0-36.0); MEAN CORPUSCULAR VOLUME 93.4 fL (83.0-99.0); MEAN PLATELET VOLUME 9.6 fL (9.4-12.3); PLATELET COUNT,PLT 152 K/uL (150-400); RED BLOOD CELL COUNT 4.37 M/uL (4.10-5.30); WHITE BLOOD CELL COUNT,WBC 4.22 K/uL (3.9-11.3)
[2023-06-12 11:57] VITALS: BP 138/76; PULSE 116
[2023-06-12 12:03] LABS: LACTIC ACID 1.9 mmol/L (0.4-2.0)
[2023-06-12 12:11] LABS: A/G RATIO 1.1 (0.9-1.6); ALBUMIN 3.2 g/dL (3.4-5.0); BILIRUBIN TOTAL 0.3 mg/dL (0.2-1.0); CALCIUM 8.9 mg/dL (8.5-10.1); CARBON DIOXIDE,CO2 25.2 mmol/L (21.0-32.0); CREATININE 0.9 mg/dL (0.6-1.0); EST CRCL DRUG DOSING (CG) 49.95 mL/min; MAGNESIUM 1.7 mg/dL (1.8-2.4); POTASSIUM,K 3.8 mmol/L (3.5-5.1); PROTEIN TOTAL,TP 6.2 g/dL (6.4-8.2)
[2023-06-12 12:16] LABS: CORONAVIRUS COVID-19 NAA POSITIVE (NEGATIVE); INFLUENZA A NAA NEGATIVE (NEGATIVE); INFLUENZA B NAA NEGATIVE (NEGATIVE); RESPIRATORY SYNCYTIAL VIR NAA NEGATIVE (NEGATIVE)
[2023-06-12] MEDS ORDERED: Nirmatrelvir/Ritonavir 300 MG/100 MG Dose Pack PO STA (12:28)
[2023-06-12 12:43] LABS: BAND ABSOLUTE MAN 0.04; BAND PERCENT MAN 1 %; LYMPHOCYTES ABSOLUTE MAN 0.93 K/uL (1.00-4.80); LYMPHOCYTES PERCENT MAN 22 % (24-44)
[2023-06-12 12:44] LABS: SEG NEUTROPHILS ABSOLUTE MAN 2.45 K/uL (1.80-7.70); SEG NEUTROPHILS PERCENT MAN 58 % (41-71)
[2023-06-12 12:45] LABS: EOSINOPHILS ABSOLUTE MAN 0.13 K/uL (0.00-0.45); EOSINOPHILS PERCENT MAN 3 % (0-6); LYMPHOCYTES % ATYPICAL MANUAL 0; MONOCYTES ABSOLUTE MAN 0.68 K/uL (0.00-0.80); MONOCYTES PERCENT MAN 16 % (0-8)
== END 2023-06-12 12:42 | disposition home or self-care (01) ==
LOC: MW.ED 09:57
DX: U07.1 COVID-19 (principal); I10 Essential (primary) hypertension; J44.9 Chronic obstructive pulmonary disease, unspecified; K21.9 Gastro-esophageal reflux disease without esophagitis; E66.9 Obesity, unspecified; Z68.23 Body mass index [BMI] 23.0-23.9, adult; Z79.899 Other long term (current) drug therapy; Z86.16 Personal history of COVID-19; Z88.5 Allergy status to narcotic agent; Z88.8 Allergy status to other drugs, medicaments and biological substances
CPT/HCPCS: 0241U; 36415; 71045; 80053; 83605; 83735; 85025; 87040; 96374; 99285; A9270; J2930; 99284; J7620-GY

== ENCOUNTER 2023-09-05 14:14 | Emergency (ER) | payer MEDICARE ==
[2023-09-05] MEDS: Lidocaine 4% 1 each Patch TOP SCH (14:53)
[2023-09-05] MEDS: Acetaminophen/HYDROcodone 325-5 MG Tab PO ONE (15:00)
[2023-09-05 15:56] VITALS: BP 121/75; PULSE 74
== END 2023-09-05 15:56 | disposition home or self-care (01) ==
LOC: MW.ED 14:14
DX: R07.89 Other chest pain (principal); I10 Essential (primary) hypertension; J44.9 Chronic obstructive pulmonary disease, unspecified; K21.9 Gastro-esophageal reflux disease without esophagitis; E78.00 Pure hypercholesterolemia, unspecified; E66.9 Obesity, unspecified; Z68.21 Body mass index [BMI] 21.0-21.9, adult; Z75.8 Other problems related to medical facilities and other health care; Z88.8 Allergy status to other drugs, medicaments and biological substances; Z79.899 Other long term (current) drug therapy; Z87.891 Personal history of nicotine dependence
CPT/HCPCS: 71046; 99284; A9270; 99283

== ENCOUNTER 2023-09-20 12:31 | Inpatient (IN) | payer MEDICARE ==
[2023-09-20] MEDS: Albuterol/Ipratropium 3.0-0.5 MG/3 ML Neb Soln NEB ONE (13:40)
[2023-09-20] MEDS: methylPREDNISolone Sodium Succinate 125 MG/2 ML SDV IVPUSH ONE (13:40)
[2023-09-20 13:46] LABS: BASOPHILS ABSOLUTE AUTO 0.05 K/uL (0.00-0.20); BASOPHILS PERCENT AUTO 0.8 % (0.0-1.0); EOSINOPHILS PERCENT AUTO 1.7 % (0.0-6.0); HEMOGLOBIN 14.4 g/dL (12.0-16.0); IMMATURE GRAN ABSOLUTE AUTO 0.01 K/uL (0.00-0.05); IMMATURE GRAN PERCENT AUTO 0.2 % (0.0-0.4); LYMPHOCYTES ABSOLUTE AUTO 1.71 K/uL (1.00-4.80); LYMPHOCYTES PERCENT AUTO 28.9 % (24.0-44.0); MEAN CORPUSCULAR HEMOGLOBIN 30.1 pg (28.0-32.0); MEAN CORPUSCULAR HGB CONC 32.7 g/dL (32.0-36.0); MEAN CORPUSCULAR VOLUME 91.9 fL (83.0-99.0); MEAN PLATELET VOLUME 9.2 fL (9.4-12.3); MONOCYTES ABSOLUTE AUTO 0.71 K/uL (0.00-0.80); NEUTROPHILS ABSOLUTE AUTO 3.33 K/uL (1.80-7.70); NEUTROPHILS PERCENT AUTO 56.4 % (41.0-71.0); PLATELET COUNT,PLT 212 K/uL (150-400); RED BLOOD CELL COUNT 4.79 M/uL (4.10-5.30); WHITE BLOOD CELL COUNT,WBC 5.91 K/uL (3.9-11.3)
[2023-09-20 14:07] LABS: A/G RATIO 0.9 (0.9-1.6); ALBUMIN 3.5 g/dL (3.4-5.0); BILIRUBIN TOTAL 0.3 mg/dL (0.2-1.0); CALCIUM 9.6 mg/dL (8.5-10.1); CARBON DIOXIDE,CO2 32.3 mmol/L (21.0-32.0); CREATININE 0.8 mg/dL (0.6-1.0); EST CRCL DRUG DOSING (CG) 56.19 mL/min; POTASSIUM,K 4.1 mmol/L (3.5-5.1); PROTEIN TOTAL,TP 7.2 g/dL (6.4-8.2)
[2023-09-20] MEDS: Aspirin 81 MG Tab.Chew PO ONE (14:18)
[2023-09-20] MEDS: Furosemide 40 MG/4 ML VIAL IVPUSH ONE ×2 (14:51→19:01)
[2023-09-20] MEDS ORDERED: Polyethylene Glycol 3350 Powder 17 GM Packet PO PRN (17:39)
[2023-09-20] MEDS: Albuterol/Ipratropium 3.0-0.5 MG/3 ML Neb Soln NEB PRN (17:54)
[2023-09-20 19:05] LABS: BASE EXCESS VENOUS 6.8 (-2.0-3.0); PH,VENOUS 7.41 (7.31-7.41)
[2023-09-20] MEDS: cefTRIAXone 1 GM in Sodium Chloride 0.9% 50 ML IV SCH (19:09)
[2023-09-20] MEDS: Enoxaparin 40 MG/0.4 ML Syringe SUBCUT SCH (19:49)
[2023-09-20] MEDS: Enoxaparin 40 MG/0.4 ML Syringe ONE (19:49)
[2023-09-20] MEDS ORDERED: Non-Formulary Medication 1 Each (Rosuvastatin 5 MG Tablet) PO SCH (21:00)
[2023-09-20] MEDS ORDERED: Non-Formulary Medication 1 Each (Budesonide/Formoterol [Symbicort 160-4.5 Mcg Inhaler (6 G INH SCH (21:00)
[2023-09-20 21:21] LABS: INR 0.95 (0.86-1.11)
[2023-09-20] MEDS: Albuterol/Ipratropium 3.0-0.5 MG/3 ML Neb Soln NEB SCH (21:47)
[2023-09-20] MEDS: Rosuvastatin 10 MG Tab PO SCH (21:47)
[2023-09-20] MEDS: Pantoprazole 40 MG in Sodium Chloride 0.9% 10 ML IVPUSH SCH (21:47)
[2023-09-20] MEDS: Melatonin 3 MG Tab PO PRN (21:54)
[2023-09-20] MEDS: guaiFENesin 600 MG Tab.ER PO SCH (21:54)
[2023-09-20] MEDS: Formoterol/Mometasone 200-5 MCG 8.8 GM Inhaler INH SCH (22:06)
[2023-09-21 06:08] LABS: HEMATOCRIT 41.8 % (37.0-47.0); HEMOGLOBIN 13.9 g/dL (12.0-16.0); LYMPHOCYTES ABSOLUTE AUTO 0.58 K/uL (1.00-4.80); LYMPHOCYTES PERCENT AUTO 16.7 % (24.0-44.0); MEAN CORPUSCULAR HEMOGLOBIN 30.1 pg (28.0-32.0); MEAN CORPUSCULAR HGB CONC 33.3 g/dL (32.0-36.0); MEAN CORPUSCULAR VOLUME 90.5 fL (83.0-99.0); MEAN PLATELET VOLUME 9.2 fL (9.4-12.3); MONOCYTES ABSOLUTE AUTO 0.19 K/uL (0.00-0.80); MONOCYTES PERCENT AUTO 5.5 % (0.0-8.0); NEUTROPHILS ABSOLUTE AUTO 2.71 K/uL (1.80-7.70); NEUTROPHILS PERCENT AUTO 77.8 % (41.0-71.0); PLATELET COUNT,PLT 213 K/uL (150-400); RED BLOOD CELL COUNT 4.62 M/uL (4.10-5.30); WHITE BLOOD CELL COUNT,WBC 3.48 K/uL (3.9-11.3)
[2023-09-21 06:31] LABS: ALBUMIN 3.3 g/dL (3.4-5.0); BILIRUBIN TOTAL 0.3 mg/dL (0.2-1.0); CALCIUM 8.9 mg/dL (8.5-10.1); CARBON DIOXIDE,CO2 30.8 mmol/L (21.0-32.0); EST CRCL DRUG DOSING (CG) 44.95 mL/min; POTASSIUM,K 3.8 mmol/L (3.5-5.1); PROTEIN TOTAL,TP 6.5 g/dL (6.4-8.2)
[2023-09-21] MEDS: methylPREDNISolone Sodium Succinate 40 MG/1 ML SDV IVPUSH SCH (08:23)
[2023-09-21] MEDS: amLODIPine 5 MG Tab PO SCH (08:24)
[2023-09-21] MEDS: Tiotropium Bromide 4 GM Inhalation Spray (2.5mcg/1 dose; 10 doses) INH SCH (08:25)
[2023-09-21] MEDS: Cefepime 2 GM in Sodium Chloride 0.9% 50 ML IV SCH (08:25)
[2023-09-21] MEDS: FLUoxetine 20 MG Cap PO SCH (08:59)
[2023-09-21] MEDS ORDERED: Non-Formulary Medication 1 Each (Tiotropium 18 MCG Cap) IH SCH (09:00)
[2023-09-21] MEDS: Furosemide 20 MG/2 ML VIAL IVPUSH SCH (12:12)
[2023-09-21] MEDS ORDERED: Furosemide 40 MG/4 ML VIAL IVPUSH SCH (21:00)
[2023-09-22 05:57] LABS: HEMATOCRIT 40.5 % (37.0-47.0); HEMOGLOBIN 13.5 g/dL (12.0-16.0); IMMATURE GRAN ABSOLUTE AUTO 0.02 K/uL (0.00-0.05); IMMATURE GRAN PERCENT AUTO 0.3 % (0.0-0.4); LYMPHOCYTES ABSOLUTE AUTO 0.66 K/uL (1.00-4.80); MEAN CORPUSCULAR HEMOGLOBIN 29.9 pg (28.0-32.0); MEAN CORPUSCULAR HGB CONC 33.3 g/dL (32.0-36.0); MEAN CORPUSCULAR VOLUME 89.6 fL (83.0-99.0); MEAN PLATELET VOLUME 9.6 fL (9.4-12.3); MONOCYTES ABSOLUTE AUTO 0.35 K/uL (0.00-0.80); MONOCYTES PERCENT AUTO 5.3 % (0.0-8.0); NEUTROPHILS ABSOLUTE AUTO 5.59 K/uL (1.80-7.70); NEUTROPHILS PERCENT AUTO 84.4 % (41.0-71.0); PLATELET COUNT,PLT 207 K/uL (150-400); RED BLOOD CELL COUNT 4.52 M/uL (4.10-5.30); WHITE BLOOD CELL COUNT,WBC 6.62 K/uL (3.9-11.3)
[2023-09-22 06:28] LABS: A/G RATIO 1.1 (0.9-1.6); ALBUMIN 3.4 g/dL (3.4-5.0); BILIRUBIN TOTAL 0.2 mg/dL (0.2-1.0); CALCIUM 8.9 mg/dL (8.5-10.1); CARBON DIOXIDE,CO2 30.9 mmol/L (21.0-32.0); CREATININE 0.9 mg/dL (0.6-1.0); EST CRCL DRUG DOSING (CG) 49.95 mL/min; POTASSIUM,K 3.9 mmol/L (3.5-5.1); PROTEIN TOTAL,TP 6.5 g/dL (6.4-8.2)
[2023-09-22] MEDS: Acetaminophen 325 MG Tab PO PRN (09:40)
[2023-09-22 14:29] VITALS: BP 136/89; PULSE 89
== END 2023-09-22 14:30 | disposition home or self-care (01) | DRG 189 ==
LOC: MW.ED 12:31 → MW.MS 17:13
PROVIDERS: ADMIT Family Medicine; ATTEND Family Medicine
DX: J96.21 Acute and chronic respiratory failure with hypoxia (principal); J44.1 Chronic obstructive pulmonary disease with (acute) exacerbation; E78.00 Pure hypercholesterolemia, unspecified; I11.0 Hypertensive heart disease with heart failure; I50.9 Heart failure, unspecified; K21.9 Gastro-esophageal reflux disease without esophagitis; Z88.2 Allergy status to sulfonamides; E66.9 Obesity, unspecified; F41.9 Anxiety disorder, unspecified; G89.29 Other chronic pain; M54.9 Dorsalgia, unspecified; M54.2 Cervicalgia; F17.210 Nicotine dependence, cigarettes, uncomplicated; Z88.5 Allergy status to narcotic agent; Z98.51 Tubal ligation status; Z88.8 Allergy status to other drugs, medicaments and biological substances; Z79.899 Other long term (current) drug therapy
CPT/HCPCS: 36415; 71046; 80053; 83880; 84484 ×2; 85025; 93005; 96374; 96375; 99285; A9270; J1940; J2930; 71250; 71250-26; 82803; 85610; 93010; 93306; C9113; J0692; J0696; J2920; J3490; J7620-GY

== ENCOUNTER 2024-02-08 11:22 | Emergency (ER) | payer MEDICARE ==
[2024-02-08] MEDS: Sodium Chloride 0.9% 1,000 ML IV ONE (12:10)
[2024-02-08 12:28] LABS: BASOPHILS ABSOLUTE AUTO 0.03 K/uL (0.00-0.20); BASOPHILS PERCENT AUTO 0.4 % (0.0-1.0); EOSINOPHILS PERCENT AUTO 1.2 % (0.0-6.0); HEMATOCRIT 38.8 % (37.0-47.0); HEMOGLOBIN 12.7 g/dL (12.0-16.0); IMMATURE GRAN ABSOLUTE AUTO 0.02 K/uL (0.00-0.05); IMMATURE GRAN PERCENT AUTO 0.2 % (0.0-0.4); LYMPHOCYTES ABSOLUTE AUTO 1.88 K/uL (1.00-4.80); LYMPHOCYTES PERCENT AUTO 22.4 % (24.0-44.0); MEAN CORPUSCULAR HEMOGLOBIN 30.7 pg (28.0-32.0); MEAN CORPUSCULAR HGB CONC 32.7 g/dL (32.0-36.0); MEAN CORPUSCULAR VOLUME 93.7 fL (83.0-99.0); MEAN PLATELET VOLUME 9.2 fL (9.4-12.3); MONOCYTES PERCENT AUTO 11.9 % (0.0-8.0); NEUTROPHILS ABSOLUTE AUTO 5.37 K/uL (1.80-7.70); NEUTROPHILS PERCENT AUTO 63.9 % (41.0-71.0); PLATELET COUNT,PLT 204 K/uL (150-400); RED BLOOD CELL COUNT 4.14 M/uL (4.10-5.30)
[2024-02-08] MEDS: Acetaminophen 500 MG Tab PO ONE (12:50)
[2024-02-08] MEDS: Lidocaine 4% 1 each Patch TOP STA (12:51)
[2024-02-08 12:54] VITALS: BP 130/60; PULSE 90
[2024-02-08 12:59] LABS: A/G RATIO 1.1 (0.9-1.6); ALBUMIN 3.5 g/dL (3.4-5.0); BILIRUBIN TOTAL 0.3 mg/dL (0.2-1.0); CALCIUM 8.9 mg/dL (8.5-10.1); CARBON DIOXIDE,CO2 34.3 mmol/L (21.0-32.0); CREATININE 0.8 mg/dL (0.6-1.0); EST CRCL DRUG DOSING (CG) 55.45 mL/min; MAGNESIUM 2.1 mg/dL (1.8-2.4); POTASSIUM,K 3.7 mmol/L (3.5-5.1); PROTEIN TOTAL,TP 6.7 g/dL (6.4-8.2)
[2024-02-08 13:08] LABS: CORONAVIRUS COVID-19 NAA NEGATIVE (NEGATIVE); INFLUENZA A NAA NEGATIVE (NEGATIVE); INFLUENZA B NAA NEGATIVE (NEGATIVE); RESPIRATORY SYNCYTIAL VIR NAA NEGATIVE (NEGATIVE)
[2024-02-08] MEDS: Amoxicillin/Clavulanate K 875-125 MG Tab PO ONE (14:23)
[2024-02-08] MEDS: methylPREDNISolone Sodium Succinate 125 MG/2 ML SDV IVPUSH ONE (14:23)
== END 2024-02-08 14:27 | disposition home or self-care (01) ==
LOC: MW.ED 11:22
DX: J44.1 Chronic obstructive pulmonary disease with (acute) exacerbation (principal); M54.9 Dorsalgia, unspecified; I10 Essential (primary) hypertension; E78.00 Pure hypercholesterolemia, unspecified; Z88.8 Allergy status to other drugs, medicaments and biological substances; Z79.899 Other long term (current) drug therapy; Z75.8 Other problems related to medical facilities and other health care
CPT/HCPCS: 0241U; 36415; 71046; 80053; 83735; 85025; 96361; 96374; 99285; A9270; J2919; J7030

== ENCOUNTER 2024-02-19 17:14 | Inpatient (IN) | payer MEDICARE ==
[2024-02-19 17:39] LABS: BASE EXCESS VENOUS 3.8 (-2.0-3.0); HEMATOCRIT 41.6 % (37.0-47.0); HEMOGLOBIN 13.4 g/dL (12.0-16.0); MEAN CORPUSCULAR HEMOGLOBIN 30.5 pg (28.0-32.0); MEAN CORPUSCULAR HGB CONC 32.2 g/dL (32.0-36.0); MEAN CORPUSCULAR VOLUME 94.8 fL (83.0-99.0); MEAN PLATELET VOLUME 9.1 fL (9.4-12.3); PH,VENOUS 7.27 (7.31-7.41); PLATELET COUNT,PLT 219 K/uL (150-400); RED BLOOD CELL COUNT 4.39 M/uL (4.10-5.30); WHITE BLOOD CELL COUNT,WBC 13.35 K/uL (3.9-11.3)
[2024-02-19 17:50] LABS: INR 0.95 (0.86-1.11)
[2024-02-19] MEDS: Cefepime 2 GM in Sodium Chloride 0.9% 50 ML IV STA (17:54)
[2024-02-19] MEDS: Albuterol 0.083% 2.5 MG/3 ML Neb Soln NEB STA (17:54)
[2024-02-19] MEDS: Albuterol/Ipratropium 3.0-0.5 MG/3 ML Neb Soln NEB STA ×2 (17:55)
[2024-02-19 18:07] LABS: A/G RATIO 1.2 (0.9-1.6); ALBUMIN 3.7 g/dL (3.4-5.0); BILIRUBIN TOTAL 0.3 mg/dL (0.2-1.0); CALCIUM 9.3 mg/dL (8.5-10.1); CARBON DIOXIDE,CO2 30.4 mmol/L (21.0-32.0); CREATININE 0.9 mg/dL (0.6-1.0); EST CRCL DRUG DOSING (CG) 49.29 mL/min; POTASSIUM,K 4.7 mmol/L (3.5-5.1); PROTEIN TOTAL,TP 6.7 g/dL (6.4-8.2)
[2024-02-19 18:12] LABS: LACTIC ACID 0.9 mmol/L (0.4-2.0)
[2024-02-19 18:13] LABS: PRO B-TYPE NATRIUR PEPT,BNPPRO 119 pg/mL (0-125)
[2024-02-19 18:24] LABS: CORONAVIRUS COVID-19 NAA NEGATIVE (NEGATIVE); INFLUENZA A NAA NEGATIVE (NEGATIVE); INFLUENZA B NAA NEGATIVE (NEGATIVE); RESPIRATORY SYNCYTIAL VIR NAA NEGATIVE (NEGATIVE)
[2024-02-19] MEDS: Morphine 4 MG/ML Syringe IVPUSH STA (18:24)
[2024-02-19] MEDS: Ondansetron 4 MG/2 ML SDV IVPUSH STA (18:24)
[2024-02-19 18:35] LABS: EOSINOPHILS ABSOLUTE MAN 0.13 K/uL (0.00-0.45); EOSINOPHILS PERCENT MAN 1 % (0-6); LYMPHOCYTES ABSOLUTE MAN 4.27 K/uL (1.00-4.80); LYMPHOCYTES PERCENT MAN 32 % (24-44); MONOCYTES PERCENT MAN 12 % (0-8); SEG NEUTROPHILS ABSOLUTE MAN 7.34 K/uL (1.80-7.70); SEG NEUTROPHILS PERCENT MAN 55 % (41-71)
[2024-02-19] MEDS: Iopamidol 755 Mg/ML 100 ML Bottle IVPUSH ONE (19:04)
[2024-02-19 19:20] LABS: BASE EXCESS VENOUS 2.8 (-2.0-3.0); PH,VENOUS 7.32 (7.31-7.41)
[2024-02-19 19:27] LABS: APPEARANCE,URINE CLEAR; BILIRUBIN,URINE NEGATIVE (NEGATIVE); COLOR,URINE YELLOW; GLUCOSE,URINE NEGATIVE (NEGATIVE); KETONES,URINE 15 mg/dL (NEGATIVE); LEUKOCYTE ESTERASE,URINE NEGATIVE (NEGATIVE); NITRITE,URINE NEGATIVE (NEGATIVE); OCCULT BLOOD,URINE NEGATIVE (NEGATIVE); PROTEIN,URINE NEGATIVE (NEGATIVE); UROBILINOGEN,URINE 0.2 EU/dL (<2.0)
[2024-02-19] MEDS ORDERED: Ondansetron 4 MG/2 ML SDV IVPUSH PRN (20:38)
[2024-02-19] MEDS ORDERED: Polyethylene Glycol 3350 Powder 17 GM Packet PO PRN (20:38)
[2024-02-19] MEDS ORDERED: Acetaminophen 650 MG Supp RECTAL PRN (20:38)
[2024-02-19] MEDS: Albuterol/Ipratropium 3.0-0.5 MG/3 ML Neb Soln NEB SCH (21:19)
[2024-02-19] MEDS: Non-Formulary Medication 1 Each (Budesonide/Formoterol [Symbicort 160-4.5 Mcg Inhaler (6 G INH SCH (23:15)
[2024-02-19] MEDS: Non-Formulary Medication 1 Each (Rosuvastatin 5 MG Tablet) PO SCH (23:15)
[2024-02-19] MEDS: guaiFENesin 600 MG Tab.ER PO SCH (23:57)
[2024-02-19] MEDS: Pantoprazole 40 MG in Sodium Chloride 0.9% 10 ML IVPUSH SCH (23:57)
[2024-02-20] MEDS: Cefepime 2 GM in Sodium Chloride 0.9% 50 ML IV SCH (01:17)
[2024-02-20] MEDS: Melatonin 3 MG Tab PO PRN (01:17)
[2024-02-20] MEDS: Sodium Chloride 0.9% 1,000 ML IV SCH (01:50)
[2024-02-20 05:46] LABS: BASOPHILS ABSOLUTE AUTO 0.01 K/uL (0.00-0.20); BASOPHILS PERCENT AUTO 0.2 % (0.0-1.0); HEMATOCRIT 36.7 % (37.0-47.0); HEMOGLOBIN 11.9 g/dL (12.0-16.0); IMMATURE GRAN ABSOLUTE AUTO 0.02 K/uL (0.00-0.05); IMMATURE GRAN PERCENT AUTO 0.4 % (0.0-0.4); LYMPHOCYTES ABSOLUTE AUTO 0.41 K/uL (1.00-4.80); LYMPHOCYTES PERCENT AUTO 7.8 % (24.0-44.0); MEAN CORPUSCULAR HEMOGLOBIN 30.4 pg (28.0-32.0); MEAN CORPUSCULAR HGB CONC 32.4 g/dL (32.0-36.0); MEAN CORPUSCULAR VOLUME 93.9 fL (83.0-99.0); MEAN PLATELET VOLUME 9.2 fL (9.4-12.3); MONOCYTES ABSOLUTE AUTO 0.13 K/uL (0.00-0.80); MONOCYTES PERCENT AUTO 2.5 % (0.0-8.0); NEUTROPHILS ABSOLUTE AUTO 4.69 K/uL (1.80-7.70); NEUTROPHILS PERCENT AUTO 89.1 % (41.0-71.0); PLATELET COUNT,PLT 172 K/uL (150-400); RED BLOOD CELL COUNT 3.91 M/uL (4.10-5.30); WHITE BLOOD CELL COUNT,WBC 5.26 K/uL (3.9-11.3)
[2024-02-20 06:04] LABS: CALCIUM 8.7 mg/dL (8.5-10.1); CREATININE 0.7 mg/dL (0.6-1.0); EST CRCL DRUG DOSING (CG) 64.51 mL/min; POTASSIUM,K 4.4 mmol/L (3.5-5.1)
[2024-02-20 06:14] LABS: CARBON DIOXIDE,CO2 30.2 mmol/L (21.0-32.0)
[2024-02-20] MEDS: methylPREDNISolone Sodium Succinate 40 MG/1 ML SDV IVPUSH SCH (06:16)
[2024-02-20] MEDS: FLUoxetine 20 MG Cap PO SCH (08:01)
[2024-02-20] MEDS: amLODIPine 5 MG Tab PO SCH (08:01)
[2024-02-20] MEDS: Formoterol/Mometasone 200-5 MCG 8.8 GM Inhaler INH SCH (08:07)
[2024-02-20] MEDS: Tiotropium Bromide 4 GM Inhalation Spray (2.5mcg/1 dose; 10 doses) INH SCH (08:08)
[2024-02-20] MEDS ORDERED: Non-Formulary Medication 1 Each (Tiotropium [Spiriva Handihaler] 18 MCG Cap) IH SCH (09:00)
[2024-02-20] MEDS ORDERED: Non-Formulary Medication 1 Each (Tiotropium [Spiriva Handihaler] 18 MCG Cap) INH SCH (09:00)
[2024-02-20] MEDS: Lidocaine 4% 1 each Patch TOP PRN (15:40)
[2024-02-20] MEDS: Acetaminophen 325 MG Tab PO PRN (17:51)
[2024-02-20 20:16] VITALS: PULSE 78
[2024-02-20] MEDS: Rosuvastatin 10 MG Tab PO SCH (20:28)
[2024-02-20] MEDS: LORazepam 0.5 MG Tab PO PRN (21:12)
[2024-02-20] MEDS: Albuterol 0.083% 2.5 MG/3 ML Neb Soln NEB PRN (21:37)
[2024-02-21] MEDS: busPIRone 5 MG Tab PO SCH (06:04)
[2024-02-21 06:05] LABS: BASOPHILS ABSOLUTE AUTO 0.01 K/uL (0.00-0.20); BASOPHILS PERCENT AUTO 0.1 % (0.0-1.0); HEMATOCRIT 37.3 % (37.0-47.0); IMMATURE GRAN ABSOLUTE AUTO 0.04 K/uL (0.00-0.05); IMMATURE GRAN PERCENT AUTO 0.3 % (0.0-0.4); LYMPHOCYTES PERCENT AUTO 4.3 % (24.0-44.0); MEAN CORPUSCULAR HEMOGLOBIN 30.2 pg (28.0-32.0); MEAN CORPUSCULAR HGB CONC 32.2 g/dL (32.0-36.0); MEAN CORPUSCULAR VOLUME 93.7 fL (83.0-99.0); MEAN PLATELET VOLUME 9.6 fL (9.4-12.3); MONOCYTES ABSOLUTE AUTO 0.48 K/uL (0.00-0.80); MONOCYTES PERCENT AUTO 4.2 % (0.0-8.0); NEUTROPHILS PERCENT AUTO 91.1 % (41.0-71.0); PLATELET COUNT,PLT 182 K/uL (150-400); RED BLOOD CELL COUNT 3.98 M/uL (4.10-5.30); WHITE BLOOD CELL COUNT,WBC 11.53 K/uL (3.9-11.3)
[2024-02-21 06:29] LABS: A/G RATIO 0.9 (0.9-1.6); ALBUMIN 3.1 g/dL (3.4-5.0); BILIRUBIN TOTAL 0.3 mg/dL (0.2-1.0); CALCIUM 8.6 mg/dL (8.5-10.1); CARBON DIOXIDE,CO2 28.6 mmol/L (21.0-32.0); CREATININE 0.7 mg/dL (0.6-1.0); EST CRCL DRUG DOSING (CG) 63.37 mL/min; POTASSIUM,K 3.8 mmol/L (3.5-5.1); PROTEIN TOTAL,TP 6.4 g/dL (6.4-8.2)
[2024-02-21] MEDS: Enoxaparin 40 MG/0.4 ML Syringe SUBCUT SCH (09:51)
[2024-02-21 10:20] LABS: BASE EXCESS ARTERIAL 3.7 (-2.0-3.0); BICARBONATE,ARTERIAL 29 mEq/L (22-26); PCO2 ARTERIAL 43 mmHG (35-45); PO2 ARTERIAL 63 mmHG (80-105)
[2024-02-21 14:10] VITALS: BP 143/80
== END 2024-02-21 14:15 | DRG 189 ==
LOC: MW.ED 17:14 → MW.MS 21:16 → MW.ICU 02-20 17:59
PROVIDERS: ADMIT Family Medicine; ATTEND Family Medicine
PROC: 5A09357 Assistance with Respiratory Ventilation, Less than 24 Consecutive Hours, Continuous Positive Airway Pressure (ICD-10-PCS; principal; 2024-02-19)
PROC: 5A09357 Assistance with Respiratory Ventilation, Less than 24 Consecutive Hours, Continuous Positive Airway Pressure (ICD-10-PCS; 2024-02-20)
PROC: 5A09357 Assistance with Respiratory Ventilation, Less than 24 Consecutive Hours, Continuous Positive Airway Pressure (ICD-10-PCS; 2024-02-21)
PROC: 4A033R1 Measurement of Arterial Saturation, Peripheral, Percutaneous Approach (ICD-10-PCS; 2024-02-21)
PROC: 5A0935A Assistance with Respiratory Ventilation, Less than 24 Consecutive Hours, High Flow/Velocity Cannula (ICD-10-PCS; 2024-02-21)
DX: J96.21 Acute and chronic respiratory failure with hypoxia (principal); J44.1 Chronic obstructive pulmonary disease with (acute) exacerbation; D68.311 Acquired hemophilia; E78.5 Hyperlipidemia, unspecified; F41.9 Anxiety disorder, unspecified; D72.829 Elevated white blood cell count, unspecified; I11.0 Hypertensive heart disease with heart failure; I50.9 Heart failure, unspecified; E78.00 Pure hypercholesterolemia, unspecified; F32.A Depression, unspecified; M54.2 Cervicalgia; G89.29 Other chronic pain; M54.9 Dorsalgia, unspecified; J43.9 Emphysema, unspecified; M54.50 Low back pain, unspecified; K21.9 Gastro-esophageal reflux disease without esophagitis; Z88.2 Allergy status to sulfonamides; Z99.81 Dependence on supplemental oxygen; Z79.51 Long term (current) use of inhaled steroids; Z79.899 Other long term (current) drug therapy; Z79.2 Long term (current) use of antibiotics; Z86.0100 Personal history of colon polyps, unspecified; Z87.81 Personal history of (healed) traumatic fracture; Z87.19 Personal history of other diseases of the digestive system; Z98.51 Tubal ligation status; Z98.890 Other specified postprocedural states
CPT/HCPCS: 0241U; 36415; 36600; 51702; 71045; 71275; 80048; 80053; 81003; 82803; 83605; 83690; 83735; 83880; 84484; 85025; 85610; 87040; 93005; 94640; 94660; 94667; 96365; 96375; 99285; 93010; A9270-GY; J0692; J1650; J2270; J2405; J2470; J2919; J3370; J3490; J7030; J7050; J7620-GY; Q9967

== ENCOUNTER 2024-03-11 06:48 | Observation (INO) | payer MEDICARE ==
[2024-03-11] MEDS ORDERED: Sodium Chloride 0.9% 2.5 ML Syringe FLUSH PRN ×2 (07:14→13:47)
[2024-03-11] MEDS ORDERED: Sodium Chloride 0.9% 10 ML Syringe FLUSH PRN ×2 (07:14→13:47)
[2024-03-11 07:26] LABS: HEMATOCRIT 38.1 % (37.0-47.0); HEMOGLOBIN 12.4 g/dL (12.0-16.0); MEAN CORPUSCULAR HEMOGLOBIN 31.1 pg (28.0-32.0); MEAN CORPUSCULAR HGB CONC 32.5 g/dL (32.0-36.0); MEAN CORPUSCULAR VOLUME 95.5 fL (83.0-99.0); MEAN PLATELET VOLUME 9.5 fL (9.4-12.3); PLATELET COUNT,PLT 160 K/uL (150-400); RED BLOOD CELL COUNT 3.99 M/uL (4.10-5.30); WHITE BLOOD CELL COUNT,WBC 12.56 K/uL (3.9-11.3)
[2024-03-11] MEDS: Albuterol/Ipratropium 3.0-0.5 MG/3 ML Neb Soln NEB ONE (07:33)
[2024-03-11 07:44] LABS: A/G RATIO 1.2 (0.9-1.6); ALBUMIN 3.5 g/dL (3.4-5.0); BILIRUBIN TOTAL 0.5 mg/dL (0.2-1.0); CALCIUM 8.9 mg/dL (8.5-10.1); CARBON DIOXIDE,CO2 32.4 mmol/L (21.0-32.0); CREATININE 0.7 mg/dL (0.6-1.0); EST CRCL DRUG DOSING (CG) 60.46 mL/min; POTASSIUM,K 4.2 mmol/L (3.5-5.1); PROTEIN TOTAL,TP 6.5 g/dL (6.4-8.2)
[2024-03-11 08:16] LABS: BAND ABSOLUTE MAN 0.13; BAND PERCENT MAN 1 %; EOSINOPHILS ABSOLUTE MAN 0.13 K/uL (0.00-0.45); EOSINOPHILS PERCENT MAN 1 % (0-6); LYMPHOCYTES ABSOLUTE MAN 1.88 K/uL (1.00-4.80); LYMPHOCYTES PERCENT MAN 15 % (24-44); MONOCYTES ABSOLUTE MAN 1.13 K/uL (0.00-0.80); MONOCYTES PERCENT MAN 9 % (0-8); SEG NEUTROPHILS ABSOLUTE MAN 9.29 K/uL (1.80-7.70); SEG NEUTROPHILS PERCENT MAN 74 % (41-71)
[2024-03-11] MEDS: Acetaminophen 500 MG Tab PO ONE (08:20)
[2024-03-11] MEDS: ALPRAZolam 0.5 MG Tab PO ONE (08:20)
[2024-03-11] MEDS: methylPREDNISolone Sodium Succinate 40 MG/1 ML SDV IVPUSH ONE (12:55)
[2024-03-11] MEDS ORDERED: Acetaminophen 325 MG Tab PO PRN (13:47)
[2024-03-11] MEDS ORDERED: Albuterol 0.083% 2.5 MG/3 ML Neb Soln NEB PRN (13:47)
[2024-03-11] MEDS ORDERED: Ondansetron 4 MG/2 ML SDV IVPUSH PRN (13:47)
[2024-03-11 14:03] LABS: CORONAVIRUS COVID-19 NAA NEGATIVE (NEGATIVE); INFLUENZA A NAA NEGATIVE (NEGATIVE); INFLUENZA B NAA NEGATIVE (NEGATIVE); RESPIRATORY SYNCYTIAL VIR NAA NEGATIVE (NEGATIVE)
[2024-03-11] MEDS: Albuterol/Ipratropium 3.0-0.5 MG/3 ML Neb Soln NEB SCH (14:33)
[2024-03-11] MEDS: Heparin Sodium 5,000 Units/ML Vial SUBCUT SCH (14:38)
[2024-03-11] MEDS: cefTRIAXone 1 GM in Sodium Chloride 0.9% 50 ML IV SCH (14:38)
[2024-03-11 16:07] LABS: APPEARANCE,URINE CLEAR; BILIRUBIN,URINE NEGATIVE (NEGATIVE); COLOR,URINE YELLOW; GLUCOSE,URINE NEGATIVE (NEGATIVE); KETONES,URINE 15 mg/dL (NEGATIVE); LEUKOCYTE ESTERASE,URINE NEGATIVE (NEGATIVE); NITRITE,URINE NEGATIVE (NEGATIVE); OCCULT BLOOD,URINE NEGATIVE (NEGATIVE); PH,URINE 7.5 (5.0-8.0); PROTEIN,URINE NEGATIVE (NEGATIVE); UROBILINOGEN,URINE 0.2 EU/dL (<2.0)
[2024-03-11] MEDS ORDERED: Albuterol 8 GM Inhaler INH PRN (16:14)
[2024-03-11] MEDS ORDERED: hydrOXYzine Pamoate 25 MG Cap PO PRN (16:14)
[2024-03-11] MEDS ORDERED: VENTOLIN 90 MCG INH PRN (17:09)
[2024-03-11] MEDS: Melatonin 3 MG Tab PO SCH (21:39)
[2024-03-11] MEDS: ROSUVASTATIN 5 MG PO SCH (21:40)
[2024-03-11] MEDS: Formoterol/Mometasone 200-5 MCG 8.8 GM Inhaler INH SCH (22:05)
[2024-03-12] MEDS: methylPREDNISolone Sodium Succinate 40 MG/1 ML SDV IVPUSH SCH (00:03)
[2024-03-12 05:33] LABS: BASOPHILS ABSOLUTE AUTO 0.01 K/uL (0.00-0.20); BASOPHILS PERCENT AUTO 0.2 % (0.0-1.0); HEMATOCRIT 37.3 % (37.0-47.0); HEMOGLOBIN 12.3 g/dL (12.0-16.0); IMMATURE GRAN ABSOLUTE AUTO 0.02 K/uL (0.00-0.05); IMMATURE GRAN PERCENT AUTO 0.4 % (0.0-0.4); LYMPHOCYTES ABSOLUTE AUTO 0.22 K/uL (1.00-4.80); MEAN CORPUSCULAR HEMOGLOBIN 30.8 pg (28.0-32.0); MEAN CORPUSCULAR VOLUME 93.3 fL (83.0-99.0); MEAN PLATELET VOLUME 8.9 fL (9.4-12.3); MONOCYTES ABSOLUTE AUTO 0.09 K/uL (0.00-0.80); MONOCYTES PERCENT AUTO 1.6 % (0.0-8.0); NEUTROPHILS PERCENT AUTO 93.8 % (41.0-71.0); PLATELET COUNT,PLT 149 K/uL (150-400); WHITE BLOOD CELL COUNT,WBC 5.54 K/uL (3.9-11.3)
[2024-03-12 05:51] LABS: CALCIUM 10.2 mg/dL (8.5-10.1); CARBON DIOXIDE,CO2 31.8 mmol/L (21.0-32.0); CREATININE 0.6 mg/dL (0.6-1.0); EST CRCL DRUG DOSING (CG) 73.93 mL/min; MAGNESIUM 2.2 mg/dL (1.8-2.4); POTASSIUM,K 4.1 mmol/L (3.5-5.1)
[2024-03-12] MEDS: oxyCODONE 5 MG Tab PO PRN (07:39)
[2024-03-12] MEDS: FLUOXETINE 20 MG PO SCH (08:42)
[2024-03-12] MEDS: AMLODIPINE 5 MG PO SCH (08:42)
[2024-03-12] MEDS: UMECLIDINIUM BROMIDE 62.5 MCG INH SCH (08:43)
[2024-03-12] MEDS: Heparin Sodium 5,000 Units/ML Vial SUBCUT SCH (10:51)
[2024-03-12] MEDS: HYDROXYZINE PAMOATE 25 MG PO PRN (10:51)
[2024-03-12 12:25] VITALS: BP 132/72; PULSE 107
[2024-03-13 08:01] LABS: BORDETELLA PARAPERT IS1001 Not Detected (Not Detected)
== END 2024-03-12 11:40 | disposition home or self-care (01) ==
LOC: MW.ED 06:48 → MW.MS 12:54
PROVIDERS: ADMIT Internal Medicine; ATTEND Internal Medicine
DX: J96.21 Acute and chronic respiratory failure with hypoxia (principal); J44.1 Chronic obstructive pulmonary disease with (acute) exacerbation; M54.50 Low back pain, unspecified; G89.29 Other chronic pain; F41.9 Anxiety disorder, unspecified; K21.9 Gastro-esophageal reflux disease without esophagitis; R77.8 Other specified abnormalities of plasma proteins; I10 Essential (primary) hypertension; Z79.899 Other long term (current) drug therapy; F17.200 Nicotine dependence, unspecified, uncomplicated; Z20.822 Contact with and (suspected) exposure to COVID-19; Z88.8 Allergy status to other drugs, medicaments and biological substances
CPT/HCPCS: 0241U; 36415; 71045; 80048; 80053; 81003; 83735; 83880; 84484; 85025; 87486; 87581; 87633; 93005; 94640; 96365; 96372; 96375; 96376; 99285; A9270; G0378; J0696; J1644; J2919; J3490; 93010; 99222; 99238; 99283; J7620-GY

== ENCOUNTER 2024-03-13 21:35 | Observation (INO) | payer MEDICARE ==
[2024-03-13] MEDS ORDERED: Sodium Chloride 0.9% 10 ML Syringe FLUSH PRN (21:38)
[2024-03-13] MEDS ORDERED: Sodium Chloride 0.9% 2.5 ML Syringe FLUSH PRN (21:38)
[2024-03-13] MEDS: methylPREDNISolone Sodium Succinate 125 MG/2 ML SDV IVPUSH ONE (21:53)
[2024-03-13 21:54] LABS: BASOPHILS ABSOLUTE AUTO 0.01 K/uL (0.00-0.20); BASOPHILS PERCENT AUTO 0.1 % (0.0-1.0); HEMATOCRIT 40.4 % (37.0-47.0); IMMATURE GRAN ABSOLUTE AUTO 0.05 K/uL (0.00-0.05); IMMATURE GRAN PERCENT AUTO 0.4 % (0.0-0.4); LYMPHOCYTES ABSOLUTE AUTO 0.79 K/uL (1.00-4.80); LYMPHOCYTES PERCENT AUTO 6.1 % (24.0-44.0); MEAN CORPUSCULAR HEMOGLOBIN 30.7 pg (28.0-32.0); MEAN CORPUSCULAR HGB CONC 32.2 g/dL (32.0-36.0); MEAN CORPUSCULAR VOLUME 95.3 fL (83.0-99.0); MEAN PLATELET VOLUME 9.1 fL (9.4-12.3); MONOCYTES ABSOLUTE AUTO 1.23 K/uL (0.00-0.80); MONOCYTES PERCENT AUTO 9.6 % (0.0-8.0); NEUTROPHILS ABSOLUTE AUTO 10.77 K/uL (1.80-7.70); NEUTROPHILS PERCENT AUTO 83.8 % (41.0-71.0); PLATELET COUNT,PLT 175 K/uL (150-400); RED BLOOD CELL COUNT 4.24 M/uL (4.10-5.30); WHITE BLOOD CELL COUNT,WBC 12.85 K/uL (3.9-11.3)
[2024-03-13] MEDS: cefTRIAXone 2 GM in Sodium Chloride 0.9% 50 ML IV ONE (21:56)
[2024-03-13] MEDS: Albuterol 0.083% 2.5 MG/3 ML Neb Soln NEB ONE (22:00)
[2024-03-13 22:15] LABS: A/G RATIO 1.2 (0.9-1.6); ALBUMIN 3.8 g/dL (3.4-5.0); BILIRUBIN TOTAL 0.3 mg/dL (0.2-1.0); CALCIUM 9.4 mg/dL (8.5-10.1); CREATININE 0.9 mg/dL (0.6-1.0); EST CRCL DRUG DOSING (CG) 49.29 mL/min; POTASSIUM,K 4.7 mmol/L (3.5-5.1); PROTEIN TOTAL,TP 7.1 g/dL (6.4-8.2)
[2024-03-13] MEDS: Magnesium Sulfate (4.06 MEQ/ML) 5 GM/10 ML SDV IV STA (22:16)
[2024-03-13] MEDS: Magnesium Sulfate/Water Premix 2 GM in Premix Bag 1 BAG IV ONE (22:31)
[2024-03-13] MEDS: ALPRAZolam 0.5 MG Tab PO ONE (23:44)
[2024-03-14] MEDS ORDERED: Acetaminophen 325 MG Tab PO PRN (01:33)
[2024-03-14 06:31] LABS: CALCIUM 8.9 mg/dL (8.5-10.1); CARBON DIOXIDE,CO2 34.7 mmol/L (21.0-32.0); CREATININE 0.6 mg/dL (0.6-1.0); EST CRCL DRUG DOSING (CG) 73.78 mL/min; POTASSIUM,K 4.9 mmol/L (3.5-5.1)
[2024-03-14 06:40] LABS: HEMATOCRIT 35.3 % (37.0-47.0); HEMOGLOBIN 11.5 g/dL (12.0-16.0); IMMATURE GRAN ABSOLUTE AUTO 0.03 K/uL (0.00-0.05); IMMATURE GRAN PERCENT AUTO 0.4 % (0.0-0.4); LYMPHOCYTES ABSOLUTE AUTO 0.22 K/uL (1.00-4.80); LYMPHOCYTES PERCENT AUTO 2.8 % (24.0-44.0); MEAN CORPUSCULAR HEMOGLOBIN 30.8 pg (28.0-32.0); MEAN CORPUSCULAR HGB CONC 32.6 g/dL (32.0-36.0); MEAN CORPUSCULAR VOLUME 94.6 fL (83.0-99.0); MEAN PLATELET VOLUME 8.9 fL (9.4-12.3); MONOCYTES ABSOLUTE AUTO 0.19 K/uL (0.00-0.80); MONOCYTES PERCENT AUTO 2.4 % (0.0-8.0); NEUTROPHILS ABSOLUTE AUTO 7.45 K/uL (1.80-7.70); NEUTROPHILS PERCENT AUTO 94.4 % (41.0-71.0); PLATELET COUNT,PLT 124 K/uL (150-400); RED BLOOD CELL COUNT 3.73 M/uL (4.10-5.30); WHITE BLOOD CELL COUNT,WBC 7.89 K/uL (3.9-11.3)
[2024-03-14] MEDS: Albuterol/Ipratropium 3.0-0.5 MG/3 ML Neb Soln NEB SCH (06:43)
[2024-03-14] MEDS ORDERED: Sennosides/Docusate Sodium 50-8.6 MG Tab PO PRN (08:39)
[2024-03-14] MEDS ORDERED: Polyethylene Glycol 3350 Powder 17 GM Packet PO PRN (08:39)
[2024-03-14] MEDS ORDERED: Ondansetron 4 MG Tab.DIS PO PRN (08:39)
[2024-03-14] MEDS: FLUoxetine 20 MG Cap PO SCH (09:04)
[2024-03-14] MEDS: Pantoprazole 40 MG Tab.CR PO SCH (09:04)
[2024-03-14] MEDS: Enoxaparin 40 MG/0.4 ML Syringe SUBCUT SCH (09:04)
[2024-03-14] MEDS: Tiotropium Bromide 4 GM Inhalation Spray (2.5mcg/1 dose; 10 doses) INH SCH (09:05)
[2024-03-14] MEDS: Formoterol/Mometasone 200-5 MCG 8.8 GM Inhaler INH SCH (10:59)
[2024-03-14] MEDS: SYMBICORT 160/4.5 MCG INH SCH (11:07)
[2024-03-14] MEDS: hydrOXYzine Pamoate 25 MG Cap PO PRN (20:26)
[2024-03-14] MEDS: cefTRIAXone 1 GM in Sodium Chloride 0.9% 50 ML IV SCH (20:27)
[2024-03-14] MEDS: methylPREDNISolone Sodium Succinate 40 MG/1 ML SDV IVPUSH SCH (20:27)
[2024-03-14] MEDS ORDERED: methylPREDNISolone Sod Succ 40 MG in Sodium Chloride 0.9% 100 ML IV SCH (21:00)
[2024-03-14] MEDS: Melatonin 3 MG Tab PO PRN (22:45)
[2024-03-15 06:27] LABS: BASOPHILS ABSOLUTE AUTO 0.01 K/uL (0.00-0.20); BASOPHILS PERCENT AUTO 0.1 % (0.0-1.0); HEMATOCRIT 36.4 % (37.0-47.0); HEMOGLOBIN 11.7 g/dL (12.0-16.0); IMMATURE GRAN ABSOLUTE AUTO 0.03 K/uL (0.00-0.05); IMMATURE GRAN PERCENT AUTO 0.4 % (0.0-0.4); LYMPHOCYTES ABSOLUTE AUTO 0.36 K/uL (1.00-4.80); LYMPHOCYTES PERCENT AUTO 5.2 % (24.0-44.0); MEAN CORPUSCULAR HEMOGLOBIN 30.5 pg (28.0-32.0); MEAN CORPUSCULAR HGB CONC 32.1 g/dL (32.0-36.0); MEAN PLATELET VOLUME 9.5 fL (9.4-12.3); MONOCYTES ABSOLUTE AUTO 0.46 K/uL (0.00-0.80); MONOCYTES PERCENT AUTO 6.7 % (0.0-8.0); NEUTROPHILS ABSOLUTE AUTO 6.02 K/uL (1.80-7.70); NEUTROPHILS PERCENT AUTO 87.6 % (41.0-71.0); PLATELET COUNT,PLT 142 K/uL (150-400); RED BLOOD CELL COUNT 3.83 M/uL (4.10-5.30); WHITE BLOOD CELL COUNT,WBC 6.88 K/uL (3.9-11.3)
[2024-03-15 06:47] LABS: CALCIUM 8.7 mg/dL (8.5-10.1); CARBON DIOXIDE,CO2 35.1 mmol/L (21.0-32.0); CREATININE 0.8 mg/dL (0.6-1.0); EST CRCL DRUG DOSING (CG) 55.34 mL/min; POTASSIUM,K 4.2 mmol/L (3.5-5.1)
[2024-03-15] MEDS: amLODIPine 5 MG Tab PO SCH (08:21)
[2024-03-15] MEDS: INCRUSE 62.5 MCG INH SCH (08:22)
[2024-03-16 07:41] LABS: BASOPHILS ABSOLUTE AUTO 0.01 K/uL (0.00-0.20); BASOPHILS PERCENT AUTO 0.2 % (0.0-1.0); HEMATOCRIT 36.3 % (37.0-47.0); HEMOGLOBIN 11.9 g/dL (12.0-16.0); IMMATURE GRAN ABSOLUTE AUTO 0.07 K/uL (0.00-0.05); IMMATURE GRAN PERCENT AUTO 1.2 % (0.0-0.4); LYMPHOCYTES ABSOLUTE AUTO 0.39 K/uL (1.00-4.80); LYMPHOCYTES PERCENT AUTO 6.8 % (24.0-44.0); MEAN CORPUSCULAR HEMOGLOBIN 30.8 pg (28.0-32.0); MEAN CORPUSCULAR HGB CONC 32.8 g/dL (32.0-36.0); MEAN PLATELET VOLUME 9.4 fL (9.4-12.3); MONOCYTES ABSOLUTE AUTO 0.43 K/uL (0.00-0.80); MONOCYTES PERCENT AUTO 7.5 % (0.0-8.0); NEUTROPHILS ABSOLUTE AUTO 4.85 K/uL (1.80-7.70); NEUTROPHILS PERCENT AUTO 84.3 % (41.0-71.0); PLATELET COUNT,PLT 143 K/uL (150-400); RED BLOOD CELL COUNT 3.86 M/uL (4.10-5.30); WHITE BLOOD CELL COUNT,WBC 5.75 K/uL (3.9-11.3)
[2024-03-16 08:01] LABS: CALCIUM 8.8 mg/dL (8.5-10.1); CARBON DIOXIDE,CO2 34.2 mmol/L (21.0-32.0); CREATININE 0.6 mg/dL (0.6-1.0); EST CRCL DRUG DOSING (CG) 73.78 mL/min; POTASSIUM,K 4.2 mmol/L (3.5-5.1)
[2024-03-16 12:21] VITALS: BP 139/68; PULSE 93
== END 2024-03-16 16:20 | disposition home or self-care (01) ==
LOC: MW.ED 21:35 → MW.MS 23:41
PROVIDERS: ADMIT Internal Medicine; ATTEND Internal Medicine
DX: J44.1 Chronic obstructive pulmonary disease with (acute) exacerbation (principal); J96.11 Chronic respiratory failure with hypoxia; Z99.81 Dependence on supplemental oxygen; K21.9 Gastro-esophageal reflux disease without esophagitis; F41.9 Anxiety disorder, unspecified; I10 Essential (primary) hypertension; E78.00 Pure hypercholesterolemia, unspecified; F17.210 Nicotine dependence, cigarettes, uncomplicated; Z79.899 Other long term (current) drug therapy
CPT/HCPCS: 36415; 71045; 80048; 80053; 85025; 94640; 96365; 96367; 96372; 96375; 96376; 97162; 99285; A9270; G0378; J0696; J1650; J2919; J3475; J3490; 99284; J7620-GY

== ENCOUNTER 2024-03-18 23:33 | Inpatient (IN) | payer MEDICARE ==
[2024-03-19] MEDS: methylPREDNISolone Sodium Succinate 125 MG/2 ML SDV IVPUSH ONE (00:24)
[2024-03-19] MEDS: LORazepam 2 MG/ML SDV IVPUSH ONE (00:24)
[2024-03-19] MEDS: Sodium Chloride 0.9% 10 ML Syringe FLUSH PRN (00:24)
[2024-03-19] MEDS: Albuterol/Ipratropium 3.0-0.5 MG/3 ML Neb Soln NEB ONE (00:25)
[2024-03-19 01:28] LABS: BASOPHILS ABSOLUTE AUTO 0.03 K/uL (0.00-0.20); BASOPHILS PERCENT AUTO 0.3 % (0.0-1.0); EOSINOPHILS ABSOLUTE AUTO 0.03 K/uL (0.00-0.45); EOSINOPHILS PERCENT AUTO 0.3 % (0.0-6.0); HEMATOCRIT 40.8 % (37.0-47.0); HEMOGLOBIN 13.2 g/dL (12.0-16.0); IMMATURE GRAN ABSOLUTE AUTO 0.25 K/uL (0.00-0.05); IMMATURE GRAN PERCENT AUTO 2.3 % (0.0-0.4); LYMPHOCYTES ABSOLUTE AUTO 1.07 K/uL (1.00-4.80); LYMPHOCYTES PERCENT AUTO 9.8 % (24.0-44.0); MEAN CORPUSCULAR HEMOGLOBIN 30.7 pg (28.0-32.0); MEAN CORPUSCULAR HGB CONC 32.4 g/dL (32.0-36.0); MEAN CORPUSCULAR VOLUME 94.9 fL (83.0-99.0); MEAN PLATELET VOLUME 8.6 fL (9.4-12.3); MONOCYTES ABSOLUTE AUTO 1.38 K/uL (0.00-0.80); MONOCYTES PERCENT AUTO 12.7 % (0.0-8.0); NEUTROPHILS ABSOLUTE AUTO 8.13 K/uL (1.80-7.70); NEUTROPHILS PERCENT AUTO 74.6 % (41.0-71.0); PLATELET COUNT,PLT 219 K/uL (150-400); WHITE BLOOD CELL COUNT,WBC 10.89 K/uL (3.9-11.3)
[2024-03-19 01:29] LABS: PH,VENOUS 7.32 (7.31-7.41)
[2024-03-19] MEDS: Morphine 2 MG/ML SYRINGE IVPUSH ONE ×3 (01:42→05:03)
[2024-03-19] MEDS: Levofloxacin/Dextrose 5%-Water 750 MG in Premix Bag 1 BAG IV ONE (01:42)
[2024-03-19] MEDS: Magnesium Sulfate/Water Premix 2 GM in Premix Bag 1 BAG IV ONE (01:42)
[2024-03-19] MEDS: Albuterol 0.083% 2.5 MG/3 ML Neb Soln NEB STA (01:45)
[2024-03-19 02:01] LABS: A/G RATIO 1.3 (0.9-1.6); ALBUMIN 3.5 g/dL (3.4-5.0); BILIRUBIN TOTAL 0.4 mg/dL (0.2-1.0); CALCIUM 9.2 mg/dL (8.5-10.1); CARBON DIOXIDE,CO2 34.1 mmol/L (21.0-32.0); CREATININE 0.8 mg/dL (0.6-1.0); EST CRCL DRUG DOSING (CG) 54.23 mL/min; MAGNESIUM 2.1 mg/dL (1.8-2.4); POTASSIUM,K 4.6 mmol/L (3.5-5.1); PROTEIN TOTAL,TP 6.2 g/dL (6.4-8.2)
[2024-03-19 02:35] LABS: BASE EXCESS VENOUS 4.1 (-2.0-3.0); PH,VENOUS 7.29 (7.31-7.41)
[2024-03-19 03:39] LABS: CORONAVIRUS COVID-19 NAA NEGATIVE (NEGATIVE); INFLUENZA A NAA NEGATIVE (NEGATIVE); INFLUENZA B NAA NEGATIVE (NEGATIVE); RESPIRATORY SYNCYTIAL VIR NAA NEGATIVE (NEGATIVE)
[2024-03-19] MEDS: Sodium Chloride 0.9% 500 ML IV SCH (03:58)
[2024-03-19] MEDS: Albuterol/Ipratropium 3.0-0.5 MG/3 ML Neb Soln NEB SCH ×2 (07:11→10:21)
[2024-03-19] MEDS ORDERED: Ketorolac 30 MG/ML SDV IM PRN (08:05)
[2024-03-19] MEDS ORDERED: Ondansetron 4 MG Tab.DIS PO PRN (08:05)
[2024-03-19] MEDS ORDERED: Promethazine 25 MG/ML SDV IM PRN (08:05)
[2024-03-19] MEDS ORDERED: Ondansetron 4 MG/2 ML SDV IVPUSH PRN (08:05)
[2024-03-19] MEDS ORDERED: Acetaminophen 325 MG Tab PO PRN (08:05)
[2024-03-19] MEDS ORDERED: Albuterol/Ipratropium 3.0-0.5 MG/3 ML Neb Soln NEB PRN (08:05)
[2024-03-19] MEDS ORDERED: Naloxone 0.4 MG/ML SDV IVPUSH PRN (08:05)
[2024-03-19] MEDS: Morphine 2 MG/ML SYRINGE IVPUSH PRN (08:45)
[2024-03-19] MEDS: Enoxaparin 40 MG/0.4 ML Syringe SUBCUT SCH (08:46)
[2024-03-19] MEDS: cefTRIAXone 2 GM in Sodium Chloride 0.9% 50 ML IV SCH (08:47)
[2024-03-19] MEDS ORDERED: Polyethylene Glycol 3350 Powder 17 GM Packet PO PRN (09:00)
[2024-03-19] MEDS ORDERED: Bisacodyl 5 MG Tab PO PRN (09:00)
[2024-03-19] MEDS ORDERED: LORazepam 2 MG/ML SDV IVPUSH PRN (09:23)
[2024-03-19] MEDS: Morphine 10 MG/0.5 ML Oral Syringe PO PRN (21:04)
[2024-03-19] MEDS: LORazepam 2 MG/ML SDV IVPUSH PRN (21:07)
[2024-03-19] MEDS: Melatonin 3 MG Tab PO PRN (23:49)
[2024-03-20 06:33] LABS: BASOPHILS ABSOLUTE AUTO 0.01 K/uL (0.00-0.20); BASOPHILS PERCENT AUTO 0.1 % (0.0-1.0); EOSINOPHILS ABSOLUTE AUTO 0.06 K/uL (0.00-0.45); EOSINOPHILS PERCENT AUTO 0.8 % (0.0-6.0); HEMATOCRIT 35.7 % (37.0-47.0); HEMOGLOBIN 11.5 g/dL (12.0-16.0); IMMATURE GRAN ABSOLUTE AUTO 0.11 K/uL (0.00-0.05); IMMATURE GRAN PERCENT AUTO 1.6 % (0.0-0.4); LYMPHOCYTES ABSOLUTE AUTO 1.86 K/uL (1.00-4.80); LYMPHOCYTES PERCENT AUTO 26.3 % (24.0-44.0); MEAN CORPUSCULAR HEMOGLOBIN 30.5 pg (28.0-32.0); MEAN CORPUSCULAR HGB CONC 32.2 g/dL (32.0-36.0); MEAN CORPUSCULAR VOLUME 94.7 fL (83.0-99.0); MEAN PLATELET VOLUME 9.1 fL (9.4-12.3); MONOCYTES ABSOLUTE AUTO 1.02 K/uL (0.00-0.80); MONOCYTES PERCENT AUTO 14.4 % (0.0-8.0); NEUTROPHILS PERCENT AUTO 56.8 % (41.0-71.0); PLATELET COUNT,PLT 198 K/uL (150-400); RED BLOOD CELL COUNT 3.77 M/uL (4.10-5.30); WHITE BLOOD CELL COUNT,WBC 7.06 K/uL (3.9-11.3)
[2024-03-20 06:58] LABS: A/G RATIO 1.2 (0.9-1.6); ALBUMIN 2.9 g/dL (3.4-5.0); BILIRUBIN TOTAL 0.4 mg/dL (0.2-1.0); CALCIUM 8.3 mg/dL (8.5-10.1); CARBON DIOXIDE,CO2 37.1 mmol/L (21.0-32.0); CREATININE 0.7 mg/dL (0.6-1.0); EST CRCL DRUG DOSING (CG) 60.46 mL/min; POTASSIUM,K 4.1 mmol/L (3.5-5.1); PROTEIN TOTAL,TP 5.3 g/dL (6.4-8.2)
[2024-03-20 11:52] VITALS: BP 140/65; PULSE 88
== END 2024-03-20 12:55 | disposition hospice, home (50) | DRG 189 ==
LOC: MW.ED 23:33 → MW.ICU 03-19 02:51 → UNDOADMIN 03-19 02:51 → MW.ICU 03-19 04:23 → MW.MS 03-19 13:56
PROVIDERS: ADMIT Family Medicine; ATTEND Family Medicine
PROC: 5A09357 Assistance with Respiratory Ventilation, Less than 24 Consecutive Hours, Continuous Positive Airway Pressure (ICD-10-PCS; principal; 2024-03-18)
DX: J96.21 Acute and chronic respiratory failure with hypoxia (principal); J44.1 Chronic obstructive pulmonary disease with (acute) exacerbation; J96.22 Acute and chronic respiratory failure with hypercapnia; Z66 Do not resuscitate; Z51.5 Encounter for palliative care; J43.9 Emphysema, unspecified; K21.9 Gastro-esophageal reflux disease without esophagitis; G89.29 Other chronic pain; Z86.16 Personal history of COVID-19; M54.9 Dorsalgia, unspecified; Z88.8 Allergy status to other drugs, medicaments and biological substances; F41.9 Anxiety disorder, unspecified; F32.A Depression, unspecified; M54.2 Cervicalgia; E78.00 Pure hypercholesterolemia, unspecified; I11.0 Hypertensive heart disease with heart failure; I50.9 Heart failure, unspecified; Z88.2 Allergy status to sulfonamides; Z98.51 Tubal ligation status; Z79.52 Long term (current) use of systemic steroids; Z79.899 Other long term (current) drug therapy; Z86.0100 Personal history of colon polyps, unspecified
CPT/HCPCS: 0241U; 36415; 51702; 71045; 71045-26; 80053; 82803; 83605; 83735; 83880; 84484; 85025; 87040; 93005; 93010; 94640; 94660; 99285; A9270-GY; J0696; J1650; J1956; J2060; J2270; J2919; J3475; J3490; J7040; J7620-GY

== ENCOUNTER 2024-05-06 13:00 | Inpatient (IN) | payer OTHER, MEDICARE ==
[2024-05-06] MEDS ORDERED: Acetaminophen 650 MG Supp RECTAL PRN (13:36)
[2024-05-06] MEDS ORDERED: Haloperidol Lactate 2 MG/ML Oral Soln 15 ML Bottle PO PRN (13:47)
[2024-05-06] MEDS ORDERED: Ondansetron 4 MG Tab.DIS PO PRN (14:05)
[2024-05-06] MEDS ORDERED: Bisacodyl 10 MG Supp RECTAL PRN (15:30)
[2024-05-06] MEDS: LORazepam 1 MG Tab PO PRN (16:59)
[2024-05-06] MEDS: Morphine 10 MG/0.5 ML Oral Syringe PO PRN (17:00)
[2024-05-06] MEDS: Mirtazapine 15 MG Tab PO SCH (20:22)
[2024-05-06] MEDS: Hyoscyamine 0.125 MG Tab.SL SL SCH (20:30)
[2024-05-06] MEDS: Morphine 15 MG Tab.ER PO SCH (21:24)
[2024-05-06] MEDS: Albuterol/Ipratropium 3.0-0.5 MG/3 ML Neb Soln NEB PRN (21:26)
[2024-05-07] MEDS: Pantoprazole 40 MG Tab.CR PO SCH (08:19)
[2024-05-07] MEDS: Dexamethasone 4 MG Tab PO SCH (08:19)
[2024-05-07] MEDS: Sennosides/Docusate Sodium 50-8.6 MG Tab PO SCH (08:19)
[2024-05-07] MEDS: Haloperidol Lactate 2 MG/ML Oral Soln 15 ML Bottle PO PRN (09:52)
[2024-05-11 07:34] VITALS: BP 132/72; PULSE 68
== END 2024-05-11 12:06 | disposition hospice, home (50) | DRG 951 ==
LOC: MW.MS 13:00
PROVIDERS: ADMIT Internal Medicine; ATTEND Internal Medicine
DX: Z51.5 Encounter for palliative care (principal); Z75.5 Holiday relief care
CPT/HCPCS: 94640; A9270-GY; J3490; J7620-GY; J8540

== ENCOUNTER 2024-06-20 13:27 | Inpatient (IN) | payer OTHER, MEDICARE ==
[2024-06-20] MEDS ORDERED: Bisacodyl 10 MG Supp RECTAL PRN (13:52)
[2024-06-20] MEDS ORDERED: Acetaminophen 650 MG Supp RECTAL PRN (13:52)
[2024-06-20] MEDS ORDERED: Albuterol 8 GM Inhaler INH PRN (13:52)
[2024-06-20] MEDS ORDERED: Haloperidol Lactate 2 MG/ML Oral Soln 15 ML Bottle PO PRN (13:52)
[2024-06-20] MEDS ORDERED: Ondansetron 4 MG Tab.DIS PO PRN (14:11)
[2024-06-20] MEDS: LORazepam 1 MG Tab PO SCH ×2 (15:21→19:35)
[2024-06-20] MEDS: Bisacodyl 10 MG Supp RECTAL SCH (15:22)
[2024-06-20] MEDS: Albuterol 0.083% 2.5 MG/3 ML Neb Soln NEB PRN (20:11)
[2024-06-20] MEDS: Morphine 15 MG Tab.ER PO SCH (20:13)
[2024-06-20] MEDS: Mirtazapine 15 MG Tab PO SCH (20:13)
[2024-06-20] MEDS: Hyoscyamine 0.125 MG Tab.SL SL SCH (20:13)
[2024-06-20] MEDS: FLUoxetine 20 MG Cap PO SCH (20:13)
[2024-06-20] MEDS: Albuterol/Ipratropium 3.0-0.5 MG/3 ML Neb Soln NEB SCH (22:10)
[2024-06-21] MEDS: Pantoprazole 40 MG Tab.CR PO SCH (06:38)
[2024-06-21] MEDS: Morphine 10 MG/0.5 ML Oral Syringe PO PRN (06:55)
[2024-06-21] MEDS: Dexamethasone 4 MG Tab PO SCH (08:29)
[2024-06-21] MEDS: Sennosides/Docusate Sodium 50-8.6 MG Tab PO SCH (08:29)
[2024-06-21] MEDS: Haloperidol Lactate 2 MG/ML Oral Soln 15 ML Bottle PO PRN (09:35)
[2024-06-21] MEDS: Morphine 15 MG Tab.ER PO SCH (12:07)
[2024-06-22] MEDS: LORazepam ORAL Concentrate 1MG/0.5ML U/D PO PRN (23:56)
[2024-06-23] MEDS: Morphine 10 MG/0.5 ML Oral Syringe PO PRN (00:53)
[2024-06-25 07:26] VITALS: BP 121/58; PULSE 87
== END 2024-06-25 12:20 | disposition still patient (30) | DRG 951 ==
LOC: MW.MS 13:27
PROVIDERS: ADMIT Family Medicine; ATTEND Family Medicine
DX: Z51.5 Encounter for palliative care (principal); Z66 Do not resuscitate; Z75.5 Holiday relief care
CPT/HCPCS: 94640; A9270-GY; J3490; J7620-GY; J8540